=== PATIENT | female | born 1955 | race Caucasian/White ===

== ENCOUNTER 2016-06-19 18:40 | Inpatient (IN) | payer BC ==
[2016-06-19] MEDS ORDERED: NS 0.9% 1000 ML* 1,000 ML IV ONE (22:15)
[2016-06-19] MEDS ORDERED: Ondansetron INJ* 2 MG/ML VIAL IV ONE (22:15)
[2016-06-19] MEDS ORDERED: Morphine INJ* 4 MG/ML 1 ML CARPUJECT IV ONE ×2 (22:15→23:32)
--- NOTE | 2016-06-19 22:35 | ED ---
Nica Weston Erika, scribed for Deni Pérez MD on 06/19/16 at 2220 . Abdominal Pain/Female - HPI Summary HPI Summary: Patient is a 60-year-old female presenting to the ED with a CC of diffuse abdominal pain starting around 12:00 today. Pt reports that she was asymptomatic this morning. Around noon, she was at work when she developed right -sided abdominal pain. She took pain medication that she takes for her chronic back pain and 2 Prilosec, with relief until 16:00 today. Since 16:00, pain has been constant. Pain is now more diffuse in the abdomen. Associated symptoms include lightheadedness, nausea, and dysuria. She denies vomiting and diarrhea. Pt states she has not had similar pain in the past. 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 Negative: Vomiting, Diarrhea Allergies/Adverse Reactions: Allergies Allergy/AdvReac Type Severity Reaction Status Date / Time Bee Venom Allergy Unknown Verified 03/19/16 10:55 Reaction Details Ibuprofen Allergy Nausea And Verified 03/19/16 10:55 Vomiting Levofloxacin [From Levaquin] Allergy Hives Verified 06/19/16 19:37 Penicillins [PCN] Allergy Hives Verified 03/19/16 10:55 PMH/Surg Hx/FS Hx/Imm Hx Musculoskeletal History: Reports: Hx Back Problems - Chronic back pain, stenosis Neurological History: Reports: Other Neuro Impairments/Disorders - PAIN CLINIC PT Psychiatric History: Reports: Hx Anxiety Infectious Disease History: No Infectious Disease History: Denies: Traveled Outside the [place] in Last 30 Days - Family History Known Family History: Positive: Cardiac Disease, Hypertension Negative: Diabetes - Social History Occupation: Employed Full-time Lives: With Family Alcohol Use: Occasionally Hx Substance Use: No Substance Use Type: Reports: None Hx Tobacco Use: Yes Smoking Status (MU): Light Every Day Tobacco Smoker Type: Cigarettes Amount Used/How Often: 7-8 cigarettes per day Have You Smoked in the Last Year: Yes Review of Systems Positive: Abdominal Pain, Nausea. Negative: Vomiting, Diarrhea Positive: dysuria Musculoskeletal: Other - Chronic back pain Neurological: Other - Lightheadedness All Other Systems Reviewed And Are Negative: Yes Physical Exam Triage Information Reviewed: Yes Vital Signs On Initial Exam: Initial Vitals Temp Pulse Resp BP Pulse Ox 100.2 F 85 20 114/64 96 06/19/16 19:35 06/19/16 19:35 06/19/16 19:35 06/19/16 19:35 06/19/16 19:35 Vital Signs Reviewed: Yes Appearance: Positive: Well-Appearing, Pain Distress - moderate discomfort Skin: Positive: Warm Head/Face: Positive: Normal Head/Face Inspection Eyes: Positive: EOMI, KAROL ENT: Positive: Hearing grossly normal Neck: Positive: Supple Respiratory/Lung Sounds: Positive: Clear to Auscultation, Breath Sounds Present Cardiovascular: Positive: Normal Abdomen Description: Positive: Soft, Other: - moderate diffuse abd tenderness. Negative: Distended, Guarding Bowel Sounds: Positive: Present Musculoskeletal: Positive: Strength/ROM Intact Neurological: Positive: Sensory/Motor Intact, Alert, Oriented to Person Place, Time, Normal Gait Psychiatric: Positive: Normal Diagnostics - Vital Signs Vital Signs Temp Pulse Resp BP Pulse Ox 06/19/16 19:35 100.2 F 85 20 114/64 96 - Laboratory Result Diagrams: 06/19/16 22:45 06/19/16 22:45 Lab Statement: Any lab studies that have been ordered have been reviewed, and results considered in the medical decision making process. - CT CT A/P W/ CT Interpretation: Positive (See Comments) - No inflammatory process identified in the abdomen or pelvis. No abdominal mass, adenopathy, or collection seen. 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 Blood work reveals WBC of 23.4. CT A/P shows Spigelian hernia on the right containing a nonobstructed segment of the proximal ascending colon. Care discussed with Dr. Bella, who admits pt for further work up and management. - Diagnoses Provider Diagnoses: Abdominal pain - Provider Notifications Discussed Care Of Patient With: Dr. Bella (hospitalist) at 01:47 - agrees to admit - Critical Care Time Critical Care Time: 30-74 min Discharge - Discharge Plan Condition: Stable Disposition: ADMITTED TO [facility] documentation as recorded by the Nica sutton Erika accurately reflects the service I personally performed and the decisions made by me, Deni Pérez MD.
[2016-06-19 23:04] LABS: Hematocrit 45 % (35-47); Hemoglobin 14.5 g/dl (12.0-16.0); Mean Corpuscular HGB Conc 32 g/dl (31-36); Mean Corpuscular Hemoglobin 29 pg (27-31); Mean Corpuscular Volume 88 fL (80-97); Mean Platelet Volume 8 um3 (7.4-10.4); Red Blood Count 5.06 10^6/ul (4.0-5.4); Red Cell Distribution Width 14 % (10.5-15); White Blood Count 23.4 10^3/ul (3.5-10.8)
[2016-06-19 23:10] LABS: Comments Flag Yes
[2016-06-19 23:14] LABS: Urine Bacteria Absent (Absent); Urine Bilirubin Negative (Negative); Urine Glucose Negative (Negative); Urine Nitrite Negative (Negative)
[2016-06-19 23:20] LABS: Albumin 4.1 g/dL (3.2-5.2); BUN/Creatinine Ratio 15.2 (8-20); C Reactive Protein 37.13 mg/L (< 5.00); Calcium 9.6 mg/dL (8.6-10.3); EGFR African American 74.1 (>60); EGFR Non-African American 57.6 (>60); Globulin 2.8 g/dL (2-4); Magnesium 1.7 mg/dL (1.9-2.7); Potassium 3.9 mmol/L (3.5-5.0); Total Bilirubin 0.7 mg/dL (0.2-1.0); Total Protein 6.9 g/dL (6.4-8.9)
[2016-06-20] MEDS ORDERED: Iodixanol* (CONTRAST) 320 MG/ML 100 ML SDV IV ONE (00:07)
[2016-06-20] MEDS ORDERED: HYDROmorphone INJ* 1 MG/ML CARPUJECT SYRINGE IV SLOW PU ONE ×2 (01:35→17:22)
[2016-06-20] MEDS ORDERED: Al Hydrox/Mg Hydrox/Simet LIQ* 30 ML UDC PO PRN (02:09)
[2016-06-20] MEDS ORDERED: Senna TAB PO PRN (02:09)
[2016-06-20] MEDS ORDERED: ALPRAZolam TAB* 0.5 MG PO PRN (02:13)
[2016-06-20] MEDS: Morphine INJ* 2 MG/ML 1 ML CARPUJECT IV PRN ×2 (04:00→08:45)
[2016-06-20] MEDS: NS 0.9% 1000 ML* 1,000 ML IV SCH ×2 (04:18→14:46)
[2016-06-20] MEDS: Heparin VIAL(*) 5000 UNITS/ML VIAL (FIVE THOUSAND) SUBCUT SCH ×2 (06:01→14:25)
[2016-06-20 06:26] LABS: Hematocrit 39 % (35-47); Hemoglobin 12.9 g/dl (12.0-16.0); Mean Corpuscular HGB Conc 33 g/dl (31-36); Mean Corpuscular Hemoglobin 29 pg (27-31); Mean Corpuscular Volume 88 fL (80-97); Mean Platelet Volume 9 um3 (7.4-10.4); Red Blood Count 4.46 10^6/ul (4.0-5.4); Red Cell Distribution Width 14 % (10.5-15); White Blood Count 23.8 10^3/ul (3.5-10.8)
[2016-06-20 06:28] LABS: Add Diff/Slide Review? Slide Review Added; Comments Flag Yes
[2016-06-20] MEDS: oxyCODONE TAB* 5 MG TAB PO PRN ×2 (06:35→17:11)
[2016-06-20 06:39] LABS: BUN/Creatinine Ratio 13.8 (8-20); Calcium 8.4 mg/dL (8.6-10.3); EGFR Non-African American 66.9 (>60); Potassium 4.1 mmol/L (3.5-5.0)
--- NOTE | 2016-06-20 07:50 | RAD ---
CLINICAL HISTORY: Diffuse abdominal pain COMPARISON: None TECHNIQUE: Contrast enhanced CT examination of the abdomen and pelvis from the lung bases through the initial tuberosities. The patient received 100 mL Visipaque 320 intravenously prior to imaging.The patient received oral contrast as well prior to imaging. FINDINGS: VISUALIZED LUNG BASES: The visualized lung bases are grossly clear. There is no pleural effusion. ABDOMEN AND PELVIS: The liver, spleen, pancreas and adrenal glands are grossly normal in appearance. The gallbladder is normal. The kidneys are normal in appearance without focal mass, calcification or signs of hydronephrosis. There is a tiny focus of air in the nondependent portion of the urinary bladder (image 78 on the axial images and 80 on the sagittal images). The oral contrast has progressed as far as the hepatic flexure. The small and large bowel are not distended. The appendix is not discretely visualized. At the base of the cecum there is a small amount of fluid that is contiguous with the adjacent right adnexa and uterus. (Image 46 of 115). There is minimal diverticular disease of the sigmoid colon but the peritoneal fat surrounding the sigmoid colon exhibits slight infiltration. Between the posterior uterus and the sigmoid colon there is a focus of what appears to be free peritoneal gas (axial image 72 and sagittal image 74). Evaluation of the distal colon is limited as the oral contrast has not progressed on the hepatic flexure. There is a right para midline hernia containing a loop of a sending colon just above the base of the cecum. There is no gross retroperitoneal or mesenteric lymphadenopathy. The pelvic viscera is normal in appearance. The abdominal aorta and iliac arteries are normal in course and diameter. Degenerative changes include multilevel loss of intervertebral disc height involving the lower thoracic and lumbar spine as well as nonspecific straightening of the normal lumbar lordosis.There are no sinister bone lesions. IMPRESSION: 1. There is a right of midline spine ganglion hernia containing a small portion of the ascending colon without signs of obstruction or inflammatory change within the herniation. Immediately below at the base of the cecum there is a small amount of free fluid that is contiguous with the right adnexa and right border of the uterus. Also in the same vicinity is the sigmoid colon exhibiting at least one diverticulum, a small focus of free peritoneal gas and pericolonic inflammatory changes. Possible etiologies include mild sigmoid diverticulitis, a gynecologic process (particularly if this woman is receiving hormone replacement therapy) or inflammatory change related to the Spigelian hernia. 2. Also noted and possibly related to the items in #1 is a small focus of gas in the nondependent urinary bladder. Please correlate to any recent instrumentation of the urethra and urinary bladder. In the absence of an iatrogenic cause a fistula with either the colon or vagina could be considered. 3. Additional chronic and degenerative findings as described in body of the report.
--- NOTE | 2016-06-20 07:56 | HP ---
CC: SANGEETA Castellon HISTORY AND PHYSICAL: DATE OF ADMISSION: 06/20/16 TIME OF EVALUATION: 0200 hours. PRIMARY CARE PHYSICIAN: SANGEETA Castellon CHIEF COMPLAINT: Nausea and abdominal pain. HISTORY OF PRESENT ILLNESS: This is a 60-year-old female with a past medical history of chronic pain, who presents to the emergency room after having abdominal pain. The patient states the pain started about 14 hours ago shortly prior to launch yesterday. She did develop mostly right-sided abdominal pain and then it has became more diffuse mainly in the lower region. She has had some nausea she feels secondary to the pain. No vomiting. No diarrhea. Last bowel movement was yesterday morning and was normal. She has had fevers and chills. No sick contacts. No URI symptoms. No rash. She states she has some mild dysuria she feels secondary to the pain. Otherwise remaining review of systems was negative. The patient was seen in the emergency room, had labs, imaging and was referred to the hospitalist service for further evaluation. PAST MEDICAL HISTORY: 1. Back pain. 2. Herniated disk. 3. Spinal stenosis. 4. Anxiety MEDICATIONS: 1. Oxycodone 50 mg 2 to 3 times a day as needed for pain. 2. Baclofen 10 mg p.o. t.i.d. as needed for spasms. 3. Xanax 0.5 mg b.i.d. as need for anxiety. 4. She states she is on multiple supplements. ALLERGIES: BEE VENOM, IBUPROFEN, LEVAQUIN, AND PENICILLIN. FAMILY HISTORY: Reviewed and noncontributory. SOCIAL HISTORY: She lives at home with her , Deni. She occasionally drinks. She smokes a pack per day for the past 30 years. 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 CODE STATUS: Full code. REVIEW OF SYSTEMS: As mentioned in the HPI. PHYSICAL EXAMINATION GENERAL: In no acute distress, resting comfortably with her at the bedside. VITAL SIGNS: T-max 100.2, respiratory rate 16, oxygen saturation is 96% on room air, and blood pressure 114/64. HEENT: Pupils are equal, round, and reactive to light and anicteric. Head normocephalic. Oropharynx: Mucous membranes are moist. No erythema or exudate. NECK: Supple. No lymphadenopathy. No nuchal rigidity. RESPIRATORY: Diminished breath sounds. No wheeze, rhonchi, or rales. CARDIAC: Regular rate and rhythm. No murmurs, rubs, or gallops. ABDOMEN: Hypoactive bowel sounds. Soft, diffusely tender. No rebound or guarding. EXTREMITIES: No clubbing, cyanosis, or edema; +2 DP. NEUROLOGIC: Alert and oriented x3. No focal neurological deficits. DIAGNOSTIC STUDIES/LAB DATA: White count 23.4, hemoglobin 14.5, hematocrit 45 , and platelets 273. Sodium 132, potassium 3.9, chloride 106, bicarbonate 27, BUN 15, creatinine 0.99, glucose 118, and magnesium 1.7. CRP 37. Urinalysis shows +1 blood, and negative nitrite. Radiographic data showing no inflammatory process identified in the abdomen or pelvis. No abdominal mass, adenopathy, or collection seen. Spigelian hernia on the right, continuing a nonobstructive segment of the proximal ascending colon. ASSESSMENT AND PLAN: This is a 60-year-old female with an unremarkable past medical history presented to the emergency room with abdominal pain and nausea. 1. Abdominal pain and nausea. Assessment: The patient with leukocytosis and low- grade temp and her CAT scan is unremarkable. I questioned if this is early gastroenteritis. No other source of infection. Could be a gallbladder. However, CAT scan does show a normal gallbladder, but may not be easily identified on CAT scan versus getting an ultrasound. No evidence of kidney stones or urinary tract infection on her exam. Plan: We are going to hold off on starting her on antibiotics. At this time, as there is no focal infection, as I suspect this is a viral gastroenteritis. We will get an ultrasound of her gallbladder and repeat her labs in the morning. Place her on a clear liquid diet with IV fluids and advance as tolerated. 2. Chronic medical problems: Chronic back pain and anxiety: We will resume her p.o. medications as prescribed. 3. FEN: As mentioned clear liquid with IV fluids. 4. DVT prophylaxis: Moderate risk. Place her on heparin subcu t.i.d. 5. Code status: Full code. TIME SPENT: Greater than 30 minutes was spent doing the history and physical, more than half the time was spent in direct patient contact. [id number]/[facility] #: [id number] JUSTINA
--- NOTE | 2016-06-20 08:30 | RAD ---
Indication: Right upper quadrant pain. Real-time sonography of the right upper quadrant was performed. The liver is normal in size measuring up to 18 cm in length. There are prominent periportal echoes noted. Correlation with the laboratory values is suggested. I cannot totally exclude hepatitis. The gallbladder demonstrates no gallstones, pericholecystic fluid or wall thickening. The common duct measures 4 mm. Right kidney measures 10.1 x 4.3 x 5.3 cm with no hydronephrosis. The pancreas demonstrates no mass or pancreatic ductal dilatation. Aorta and inferior vena cava are unremarkable. IMPRESSION: Prominent periportal echoes in the liver. Correlation with laboratory values is suggested to exclude acute hepatitis. No evidence of cholelithiasis or biliary duct dilatation is noted.
[2016-06-20] MEDS: Morphine INJ* 4 MG/ML 1 ML CARPUJECT IV PRN ×2 (12:07→15:07)
--- NOTE | 2016-06-20 13:26 | PN ---
Subjective Date of Service: 06/20/16 Interval History: Patient seen and examined at bedside. She is laying flat in bed and states that her morphine "only lasts 2 hours." She is upset because she is still having pain. Denies fever/chills overnight, CP, SOB. Patient reports nausea that occurs with pain but denies emesis and diarrhea. She is frustrated that she does not feel better; pain started yesterday. Family History: Unchanged from Admission Social History: Unchanged from Admission Past Medical History: Unchanged from Admission Objective Active Medications: Acetaminophen (Tylenol Tab*) 650 mg PO Q4H PRN PRN Reason: FEVER/PAIN Al Hydrox/Mg Hydrox/Simethicone (Maalox Plus*) 30 ml PO Q6H PRN PRN Reason: INDIGESTION Alprazolam (Xanax Tab*) 0.5 mg PO TID GENA Baclofen (Lioresal Tab*) 10 mg PO TID PRN PRN Reason: SPASMS Docusate Sodium (Colace Cap*) 100 mg PO BID PRN PRN Reason: CONSTIPATION Heparin Sodium (Porcine) (Heparin Vial(*)) 5,000 units SUBCUT Q8HR [facility] Last Admin: 06/20/16 06:01 Dose: 5,000 units Sodium Chloride (Ns 0.9% 1000 Ml*) 1,000 mls @ 125 mls/hr IV PER RATE [facility] Last Admin: 06/20/16 04:18 Dose: 125 mls/hr Morphine Sulfate (Morphine Inj (Syringe)*) 4 mg IV Q3H PRN PRN Reason: PAIN Ondansetron HCl (Zofran Inj*) 4 mg IV Q4H PRN PRN Reason: NAUSEA/VOMITING Oxycodone HCl (Roxycodone Tab*) 15 mg PO Q8H PRN PRN Reason: PAIN Last Admin: 06/20/16 06:35 Dose: 15 mg Senna (Senokot Tab*) 1 tab PO BID PRN PRN Reason: CONSTIPATION Vital Signs 06/20/16 06/20/16 06/20/16 03:40 03:44 03:46 Temperature 98.8 F 99.5 F 98.8 F Pulse Rate 84 80 84 Respiratory 18 16 18 Rate Blood Pressure 113/55 98/54 113/55 (mmHg) O2 Sat by Pulse 94 94 Oximetry 01/10/0106/20/16 06/20/16 04:00 05:00 05:03 Temperature Pulse Rate Respiratory 18 17 18 Rate Blood Pressure (mmHg) O2 Sat by Pulse Oximetry 06/20/16 06/20/16 06/20/16 06:35 08:35 08:45 Temperature Pulse Rate Respiratory 18 16 16 Rate Blood Pressure (mmHg) O2 Sat by Pulse Oximetry 06/20/16 09:45 Temperature Pulse Rate Respiratory 16 Rate Blood Pressure (mmHg) O2 Sat by Pulse Oximetry Oxygen Devices in Use Now: None Appearance: Female patient, lying in bed, in NAD Eyes: PERRLA Ears/Nose/Mouth/Throat: Mucous Membranes Moist Neck: NL Appearance and Movements; NL JVP Respiratory: Symmetrical Chest Expansion and Respiratory Effort, Clear to Auscultation - diminished Cardiovascular: NL Sounds; No Murmurs; No JVD, RRR Abdominal: NL Sounds; No Tenderness; No Distention - BS x 4, pain with palpation to RUQ, mid abdomen, RLQ Extremities: No Clubbing, Cyanosis Skin: No Rash or Ulcers Neurological: Alert and Oriented x 3 Lines/Tubes/Other Access: Clean, Dry and Intact Peripheral IV Nutrition: Taking PO's - clears Result Diagrams: 06/20/16 06:08 06/20/16 06:08 Assess/Plan/Problems-Billing Assessment: Ms. Aguero is a 60 yo female with a PMH of chronic back pain who presented to the ED on 06/20/16 with abdominal pain and nausea. - Patient Problems (1) Abdominal pain Code(s): R10.9 - UNSPECIFIED ABDOMINAL PAIN Comment: With leukocytosis. Patient is afebrile. Pain accompanied by nausea. Etiology possible gastroenteritis or colitis, continue IVF and pain management. Consider antibiotic therapy if pt becomes febrile or pain worsens/persists. Continue close monitoring. CT not able to idenitfy inflammatory process in abdomen or pelvis, no masses/ adenopathy/collection seen, Spigelian hernia on the right - contining a nonobstructive segment of the proximal ascending colon. (2) Chronic back pain Code(s): M54.9 - DORSALGIA, UNSPECIFIED; G89.29 - OTHER CHRONIC PAIN Comment: Continue home oxycodone PRN at reduced frequency, hold for sedation. (3) Anxiety Code(s): F41.9 - ANXIETY DISORDER, UNSPECIFIED Comment: Continue PRN alprazolam and supportive care. (4) DVT prophylaxis Comment: SQ heparin Status and Disposition: OBV admit.
[2016-06-20] MEDS ORDERED: ALPRAZolam TAB* 0.5 MG PO SCH (14:00)
[2016-06-20] MEDS ORDERED: Calcium Carbonate CHEW TAB* 500 MG (TUMS) PO PRN (17:48)
[2016-06-20] MEDS ORDERED: HYDROmorphone INJ* 1 MG/ML CARPUJECT SYRINGE IV SLOW PU PRN (17:50)
[2016-06-20] MEDS ORDERED: Pantoprazole IV* 40 MG IV ONE (17:50)
[2016-06-20] MEDS: Simethicone TAB* 80 MG TAB.CHEW PO PRN ×2 (18:09→23:35)
[2016-06-20] MEDS ORDERED: traZODone TAB* 100 MG PO PRN ×2 (18:40→19:04)
--- NOTE | 2016-06-20 18:44 | PN ---
Hospitalist Progress Note Patient continues to report pain and is now reporting gas and abdominal pressure , as if she needs to have a bowel movement. She states it "hurts too much" to try to walk. Patient encouraged to sit on commode or toilet to help promote bowel movement. She denies chronic constipation. She is very agitated about her pain and states that she cannot get comfortable. Morphine switched to hydromorphone. Patient also ordered simethicone. Pelvic US ordered, as patient continues to c/o right lower quadrant pain that "feels like it's in my ovary." No fever noted. Continue to closely monitor.
[2016-06-20] MEDS ORDERED: oxyCODONE TAB* 5 MG TAB PO PRN (19:04)
[2016-06-20] MEDS: HYDROmorphone INJ* 1 MG/ML CARPUJECT SYRINGE IV SLOW PU PRN (20:45)
--- NOTE | 2016-06-20 23:17 | RAD ---
Indication: RIGHT adnexal region pain. Comparison: CT of the same date. Technique: Transabdominal pelvic ultrasound. Report: Unremarkable 8.3 x 2.2 x 4.0 cm anteverted uterus. Neither the RIGHT or LEFT ovary could be visualized with bowel gas limiting assessment. No free fluid evident sonographically however a small volume of free pelvic fluid is evident on CT of the same date. No visualized extra ovarian adnexal region lesions. IMPRESSION: Limited transabdominal pelvic ultrasound. Neither ovary could be visualized with bowel gas limiting assessment. Small volume of free pelvic fluid documented on CT.
[2016-06-20] MEDS: Acetaminophen TAB* 325 MG PO PRN (23:35)
[2016-06-21] MEDS ORDERED: NS 0.9% 1000 ML* 1,000 ML IV ONE (00:26)
[2016-06-21] MEDS: Heparin VIAL(*) 5000 UNITS/ML VIAL (FIVE THOUSAND) SUBCUT SCH ×4 (00:31→21:42)
[2016-06-21] MEDS: HYDROmorphone INJ* 1 MG/ML CARPUJECT SYRINGE IV SLOW PU PRN ×3 (01:02→09:56)
[2016-06-21 01:07] LABS: Urine Bacteria Absent (Absent); Urine Bilirubin Negative (Negative); Urine Glucose Negative (Negative); Urine Nitrite Negative (Negative)
[2016-06-21] MEDS: NS 0.9% 1000 ML* 1,000 ML IV SCH ×3 (01:49→20:50)
[2016-06-21] MEDS: Simethicone TAB* 80 MG TAB.CHEW PO PRN (06:11)
[2016-06-21 06:43] LABS: Hematocrit 36 % (35-47); Hemoglobin 11.7 g/dl (12.0-16.0); Mean Corpuscular HGB Conc 33 g/dl (31-36); Mean Corpuscular Hemoglobin 29 pg (27-31); Mean Corpuscular Volume 88 fL (80-97); Mean Platelet Volume 9 um3 (7.4-10.4); Red Blood Count 4.09 10^6/ul (4.0-5.4); Red Cell Distribution Width 14 % (10.5-15); White Blood Count 21.2 10^3/ul (3.5-10.8)
[2016-06-21 07:02] LABS: BUN/Creatinine Ratio 8.8 (8-20); Calcium 8.1 mg/dL (8.6-10.3); EGFR African American 81.7 (>60); EGFR Non-African American 63.5 (>60); Potassium 3.6 mmol/L (3.5-5.0)
[2016-06-21] MEDS: Ondansetron INJ* 2 MG/ML VIAL IV PRN (09:56)
[2016-06-21] MEDS: cefTRIAXone VIAL(*) 1,000 MG in NS 0.9% 50 ML* 50 ML IVPB SCH (10:07)
[2016-06-21] MEDS ORDERED: Morphine INJ* 4 MG/ML 1 ML CARPUJECT IV PRN (10:22)
[2016-06-21] MEDS: ALPRAZolam TAB* 0.5 MG PO PRN (10:26)
[2016-06-21] MEDS: metroNIDAZOLE IV 500 MG/100ML* 500 MG/100 ML BAG IVPB SCH ×2 (10:44→18:33)
--- NOTE | 2016-06-21 11:04 | PN ---
Subjective Date of Service: 06/21/16 Interval History: Patient seen and examined at bedside. Ms. Aguero is very agitated and states, "I'm in terrible pain and no one is doing anything." She is upset that no cause has yet been found for her pain and states that she has trouble marking time in the hospital and keeping up with requesting her pain medication. She declined a LOG ROPER and wants nursing to bring her pain medication around the clock. I discussed with the patient making a plan with nursing to write times on the board so she could keep better track and to report to nursing or myself when she is having pain and if it is unrelieved by the current pain medication regimen. She agreed to this. She has not gotten up to walk around as we previously discussed because "it hurts too much." She reports having lots of gas and is passing a little bit. She is drinking a lot of alin noemi; I advised her against the carbonation and straw use in the presence of c/o gas. She denies CP, SOB, vomiting, diarrhea, melena. She reports dysuria, nausea, and fever/sweats. Nursing reports patient and her have been very aggressive towards staff in regards to care and medication. Family History: Unchanged from Admission Social History: Unchanged from Admission Past Medical History: Unchanged from Admission Objective Active Medications: Acetaminophen (Tylenol Tab*) 650 mg PO Q4H PRN PRN Reason: FEVER/PAIN Last Admin: 06/20/16 23:35 Dose: 650 mg Al Hydrox/Mg Hydrox/Simethicone (Maalox Plus*) 30 ml PO Q6H PRN PRN Reason: INDIGESTION Alprazolam (Xanax Tab*) 0.5 mg PO TID PRN PRN Reason: ANXIETY Last Admin: 06/21/16 10:26 Dose: 0.5 mg Baclofen (Lioresal Tab*) 10 mg PO TID PRN PRN Reason: SPASMS Calcium Carbonate (Tums*) 500 mg PO Q4H PRN PRN Reason: INDIGESTION Docusate Sodium (Colace Cap*) 100 mg PO BID PRN PRN Reason: CONSTIPATION Heparin Sodium (Porcine) (Heparin Vial(*)) 5,000 units SUBCUT Q8HR [facility] Last Admin: 06/21/16 06:04 Dose: Not Given Sodium Chloride (Ns 0.9% 1000 Ml*) 1,000 mls @ 125 mls/hr IV PER RATE [facility] Last Admin: 06/21/16 10:08 Dose: 125 mls/hr Ceftriaxone Sodium 1,000 mg/ (Sodium Chloride) 50 mls @ 200 mls/hr IVPB Q24H [facility] Last Admin: 06/21/16 10:07 Dose: 200 mls/hr Metronidazole/Sodium Chloride (Flagyl 500 Mg Ivpb*) 500 mg in 100 mls @ 100 mls /hr IVPB Q8H [facility] Last Admin: 06/21/16 10:44 Dose: 100 mls/hr Morphine Sulfate (Morphine Inj (Syringe)*) 4 mg IV Q3H PRN PRN Reason: PAIN Last Admin: 06/21/16 10:40 Dose: 4 mg Ondansetron HCl (Zofran Inj*) 4 mg IV Q4H PRN PRN Reason: NAUSEA/VOMITING Last Admin: 06/21/16 09:56 Dose: 4 mg Oxycodone HCl (Roxycodone Tab*) 15 mg PO Q8H PRN PRN Reason: PAIN Last Admin: 06/21/16 06:11 Dose: 15 mg Senna (Senokot Tab*) 1 tab PO BID PRN PRN Reason: CONSTIPATION Simethicone (Mylicon*) 80 mg PO Q6H PRN PRN Reason: DYSPEPSIA Last Admin: 06/21/16 06:11 Dose: 80 mg Trazodone HCl (Desyrel Tab*) 100 mg PO BEDTIME PRN PRN Reason: INSOMNIA Vital Signs 06/20/16 06/20/16 06/20/16 12:07 13:07 14:45 Temperature Pulse Rate Respiratory 16 16 16 Rate Blood Pressure (mmHg) O2 Sat by Pulse Oximetry 06/20/16 06/20/16 06/20/16 14:51 15:07 16:07 Temperature 98.0 F Pulse Rate 84 Respiratory 16 16 16 Rate Blood Pressure 106/60 (mmHg) O2 Sat by Pulse 95 Oximetry 06/20/16 06/20/16 06/20/16 16:45 17:11 17:44 Temperature Pulse Rate Respiratory 16 22 19 Rate Blood Pressure (mmHg) O2 Sat by Pulse Oximetry 06/20/16 06/20/16 06/20/16 19:11 19:26 20:00 Temperature 100.9 F Pulse Rate 97 Respiratory 15 16 15 Rate Blood Pressure 103/41 (mmHg) O2 Sat by Pulse 90 Oximetry 06/20/16 06/20/16 06/20/16 20:45 21:45 23:25 Temperature 103.1 F Pulse Rate 103 Respiratory 16 16 20 Rate Blood Pressure 129/54 (mmHg) O2 Sat by Pulse 94 Oximetry 06/21/16 06/21/16 06/21/16 01:02 01:30 02:02 Temperature 102.2 F Pulse Rate Respiratory 18 17 Rate Blood Pressure (mmHg) O2 Sat by Pulse Oximetry 06/21/16 06/21/16 06/21/16 03:54 04:28 05:28 Temperature 98.6 F Pulse Rate 95 Respiratory 16 18 17 Rate Blood Pressure 126/52 (mmHg) O2 Sat by Pulse 100 Oximetry 06/21/16 06/21/16 06/21/16 06:11 07:23 08:11 Temperature 101.0 F Pulse Rate 95 Respiratory 17 16 16 Rate Blood Pressure 103/48 (mmHg) O2 Sat by Pulse 93 Oximetry 06/21/16 06/21/16 06/21/16 09:56 10:26 10:28 Temperature 99.3 F Pulse Rate Respiratory 22 28 28 Rate Blood Pressure (mmHg) O2 Sat by Pulse Oximetry 06/21/16 06/21/16 10:32 10:40 Temperature Pulse Rate 120 Respiratory 25 Rate Blood Pressure 116/44 (mmHg) O2 Sat by Pulse 92 Oximetry Oxygen Devices in Use Now: None Appearance: Female patient, lying in bed, diaphoretic, appears uncomfortable. Eyes: PERRLA Ears/Nose/Mouth/Throat: Clear Oropharnyx, Mucous Membranes Moist Neck: NL Appearance and Movements; NL JVP Respiratory: Symmetrical Chest Expansion and Respiratory Effort, Clear to Auscultation Cardiovascular: NL Sounds; No Murmurs; No JVD, RRR Abdominal: - - diffuse abdominal tenderness, more prominent in RMQ/RLQ Extremities: No Edema Skin: No Rash or Ulcers Neurological: Alert and Oriented x 3 Lines/Tubes/Other Access: Clean, Dry and Intact Peripheral IV Result Diagrams: 06/21/16 06:34 06/21/16 06:34 Assess/Plan/Problems-Billing Assessment: Ms. Aguero is a 60 yo female with a PMH of chronic back pain who presented to the ED on 1/4/17 with abdominal pain and nausea. - Patient Problems (1) Abdominal pain Code(s): R10.9 - UNSPECIFIED ABDOMINAL PAIN Comment: Patient febrile overnight and has persistent leukocytosis. Started on metronidazole and ceftriaxone, given her allergies to fluoroquinolones and penicillins. Pain accompanied by nausea. Etiology possible gastroenteritis or colitis, continue IVF and pain management. Patient has declined a LOG ROPER at this time and dislikes hydromorphone. Continue morphine and coordinate pain management regimen with nursing. Pelvic U/S and KUB negative for acute findings. GI consult pending. CT not able to idenitfy inflammatory process in abdomen or pelvis, no masses/ adenopathy/collection seen, Spigelian hernia on the right - continuing a nonobstructive segment of the proximal ascending colon. (2) Chronic back pain Code(s): M54.9 - DORSALGIA, UNSPECIFIED; G89.29 - OTHER CHRONIC PAIN Comment: Continue home oxycodone PRN at reduced frequency, hold for sedation. (3) Anxiety Code(s): F41.9 - ANXIETY DISORDER, UNSPECIFIED Comment: Continue PRN alprazolam and supportive care. (4) DVT prophylaxis Comment: SQ heparin Status and Disposition: OBV admit to inpatient.
[2016-06-21] MEDS: Morphine INJ* 4 MG/ML 1 ML CARPUJECT IV PRN ×6 (12:47→22:51)
--- NOTE | 2016-06-21 13:45 | RAD ---
INDICATION: Abdominal pain. COMPARISON: Comparison is made with a prior CT of the abdomen and pelvis from June 20, 2016. TECHNIQUE: Frontal supine films of the abdomen were obtained. FINDINGS: The small bowel and colon appear nondistended. Contrast is seen within the colon from the prior CT study. No significant abnormal calcifications are seen. IMPRESSION: NO EVIDENCE FOR OBSTRUCTION.
[2016-06-21 14:18] LABS: C Reactive Protein 210.53 mg/L (< 5.00)
--- NOTE | 2016-06-21 21:52 | CONS ---
CONSULTATION REPORT: DATE OF CONSULTATION: 06/21/16 REQUESTING PHYSICIAN: Dr. Bella. INDICATION: Generalized abdominal pain. NARRATIVE: Mrs. Aguero is a 60-year-old female who was admitted for abdominal pain. She states it began on Saturday or Saturday out of the blue, began on the right side of her abdomen and moved to all over. It is colicky, coming in waves. She did start to vomit today. She has had fevers and chills. She was admitted for suspected gastroenteritis; however, her symptoms have continued to worsen. Her white count is elevated and she has developed a fever. She was started on antibiotics just a few hours ago. She denies any stool or gas in her urine. Her urine has been dark and she does have dysuria. PAST MEDICAL HISTORY: Significant for spinal stenosis, anxiety, chronic back pain. MEDICATIONS: Include: 1. Oxycodone. 2. Baclofen. 3. Xanax. ALLERGIES: IBUPROFEN, LEVAQUIN, and PENICILLIN. FAMILY HISTORY: No GI malignancies in the family. SOCIAL HISTORY: She does smoke tobacco. I counseled her against this. Occasional alcohol. REVIEW OF SYSTEMS: 12 systems were reviewed, other than that mentioned in the HPI were unremarkable. PHYSICAL EXAMINATION: Vital signs: T-max is 101, blood pressure is 103/48, pulse is 95. General: Mildly ill-appearing female, in no apparent distress. Alert and oriented, pleasant and fluent. HEENT: Mucous membranes are dry. Heart: Regular rate and rhythm. Tachy. Lungs: Clear to auscultation. Abdomen: Positive bowel sounds, but hypoactive. Morbidly obese. No rebound. No guarding. Diffusely tender. Mildly distended. Skin: Warm and dry. DIAGNOSTIC STUDIES/LAB DATA: BUN 8, creatinine 0.9, CRP is 210. White count is 21.2, hemoglobin is 11.7, platelets 214. She had an abdominal x-ray from today that was normal. Gallbladder ultrasound from yesterday that was normal and 2 days ago, CT that shows a spigelian hernia with colon in the hernia, one diverticuloma on the left side and possibility of gas within the bladder. ASSESSMENT AND PLAN: This is a 60-year-old female with abdominal pain, elevated white count, fever, and CRP. I do wonder if she could have diverticulitis. She was just started on antibiotics today. I think that is a very good idea. There is also a question of whether or not there could be a fistula between her bladder and colon. She denies any symptoms suggestive of that. I agree with the antibiotics and the pain control. At this point, we will continue to follow along very closely. CC: Dr. Bella; Binh Mary, KARLO* [id number]/[facility] #: [id number] MTDD
[2016-06-21] MEDS ORDERED: Vancomycin(*) 1,250 MG in NS 0.9% 250 ML* 250 ML IVPB ONE (22:00)
[2016-06-21] MEDS: Acetaminophen TAB* 325 MG PO PRN (22:45)
[2016-06-21] MEDS: Docusate CAP* 100 MG PO PRN (23:26)
[2016-06-22] MEDS: Morphine INJ* 4 MG/ML 1 ML CARPUJECT IV PRN ×10 (01:27→22:34)
[2016-06-22] MEDS: metroNIDAZOLE IV 500 MG/100ML* 500 MG/100 ML BAG IVPB SCH ×3 (02:48→18:39)
[2016-06-22] MEDS: Simethicone TAB* 80 MG TAB.CHEW PO PRN (02:53)
[2016-06-22] MEDS: ALPRAZolam TAB* 0.5 MG PO PRN ×2 (02:53→19:50)
[2016-06-22] MEDS: Heparin VIAL(*) 5000 UNITS/ML VIAL (FIVE THOUSAND) SUBCUT SCH ×2 (06:27→14:04)
[2016-06-22 06:59] LABS: Hematocrit 38 % (35-47); Hemoglobin 12.1 g/dl (12.0-16.0); Mean Corpuscular HGB Conc 32 g/dl (31-36); Mean Corpuscular Hemoglobin 29 pg (27-31); Mean Corpuscular Volume 89 fL (80-97); Mean Platelet Volume 9 um3 (7.4-10.4); Red Blood Count 4.19 10^6/ul (4.0-5.4); Red Cell Distribution Width 15 % (10.5-15); White Blood Count 17.2 10^3/ul (3.5-10.8)
[2016-06-22 07:11] LABS: Add Diff/Slide Review? Slide Review Added; Comments Flag Yes
[2016-06-22] MEDS: NS 0.9% 1000 ML* 1,000 ML IV SCH (07:57)
[2016-06-22] MEDS: cefTRIAXone VIAL(*) 1,000 MG in NS 0.9% 50 ML* 50 ML IVPB SCH (10:18)
--- NOTE | 2016-06-22 12:27 | PN ---
Subjective Date of Service: 06/22/16 Interval History: Patient seen and examined at bedside. She is more calm today. She reports still having pain but admits that she was able to go 5 hours overnight without needing medication. She reports urinating but denies any further bowel movements. She is passing flatus. She denies CP, SOB. Abd pain is still present. She wants to try jello or a popsicle. She has started ambulating with nursing staff. Family History: Unchanged from Admission Social History: Unchanged from Admission Past Medical History: Unchanged from Admission Objective Active Medications: Acetaminophen (Tylenol Tab*) 650 mg PO Q4H PRN PRN Reason: FEVER/PAIN Last Admin: 06/21/16 22:45 Dose: 650 mg Al Hydrox/Mg Hydrox/Simethicone (Maalox Plus*) 30 ml PO Q6H PRN PRN Reason: INDIGESTION Alprazolam (Xanax Tab*) 0.5 mg PO TID PRN PRN Reason: ANXIETY Last Admin: 06/22/16 02:53 Dose: 0.5 mg Baclofen (Lioresal Tab*) 10 mg PO TID PRN PRN Reason: SPASMS Calcium Carbonate (Tums*) 500 mg PO Q4H PRN PRN Reason: INDIGESTION Docusate Sodium (Colace Cap*) 100 mg PO BID PRN PRN Reason: CONSTIPATION Last Admin: 06/21/16 23:26 Dose: 100 mg Heparin Sodium (Porcine) (Heparin Vial(*)) 5,000 units SUBCUT Q8HR [facility] Last Admin: 06/22/16 06:27 Dose: 5,000 units Sodium Chloride (Ns 0.9% 1000 Ml*) 1,000 mls @ 125 mls/hr IV PER RATE [facility] Last Admin: 06/22/16 07:57 Dose: 125 mls/hr Ceftriaxone Sodium 1,000 mg/ (Sodium Chloride) 50 mls @ 200 mls/hr IVPB Q24H [facility] Last Admin: 06/22/16 10:18 Dose: 200 mls/hr Metronidazole/Sodium Chloride (Flagyl 500 Mg Ivpb*) 500 mg in 100 mls @ 100 mls /hr IVPB Q8H [facility] Last Admin: 06/22/16 11:42 Dose: 100 mls/hr Morphine Sulfate (Morphine Inj (Syringe)*) 4 mg IV Q2H PRN PRN Reason: PAIN Last Admin: 06/22/16 12:09 Dose: 4 mg Ondansetron HCl (Zofran Inj*) 4 mg IV Q4H PRN PRN Reason: NAUSEA/VOMITING Last Admin: 06/21/16 09:56 Dose: 4 mg Oxycodone HCl (Roxycodone Tab*) 15 mg PO Q8H PRN PRN Reason: PAIN Last Admin: 06/21/16 06:11 Dose: 15 mg Senna (Senokot Tab*) 1 tab PO BID PRN PRN Reason: CONSTIPATION Simethicone (Mylicon*) 80 mg PO Q6H PRN PRN Reason: DYSPEPSIA Last Admin: 06/22/16 02:53 Dose: 80 mg Trazodone HCl (Desyrel Tab*) 100 mg PO BEDTIME PRN PRN Reason: INSOMNIA Vital Signs 06/21/16 06/21/16 06/21/16 18:33 19:33 20:00 Temperature Pulse Rate Respiratory 18 18 18 Rate Blood Pressure (mmHg) O2 Sat by Pulse Oximetry 06/21/16 06/21/16 06/21/16 20:28 21:28 21:30 Temperature 103 F Pulse Rate Respiratory 18 17 Rate Blood Pressure (mmHg) O2 Sat by Pulse Oximetry 06/21/16 06/21/16 06/21/16 22:51 22:55 23:51 Temperature 102.7 F Pulse Rate Respiratory 18 17 Rate Blood Pressure (mmHg) O2 Sat by Pulse Oximetry 06/21/16 06/22/16 06/22/16 23:55 00:06 01:27 Temperature 99.8 F Pulse Rate 96 97 Respiratory 16 17 Rate Blood Pressure 83/49 100/57 (mmHg) O2 Sat by Pulse 92 Oximetry 06/22/16 06/22/16 06/22/16 02:27 02:53 04:53 Temperature Pulse Rate Respiratory 16 16 17 Rate Blood Pressure (mmHg) O2 Sat by Pulse Oximetry 06/22/16 06/22/16 06/22/16 06:08 07:08 07:57 Temperature Pulse Rate Respiratory 16 20 20 Rate Blood Pressure (mmHg) O2 Sat by Pulse Oximetry 06/22/16 06/22/16 06/22/16 08:00 08:03 08:57 Temperature 98.2 F Pulse Rate 93 Respiratory 17 17 16 Rate Blood Pressure 112/66 (mmHg) O2 Sat by Pulse 98 Oximetry 06/22/16 06/22/16 06/22/16 10:22 11:22 12:09 Temperature Pulse Rate Respiratory 16 16 20 Rate Blood Pressure (mmHg) O2 Sat by Pulse Oximetry Oxygen Devices in Use Now: None Appearance: Female patient, lying in bed, in NAD Eyes: PERRLA Ears/Nose/Mouth/Throat: Clear Oropharnyx, Mucous Membranes Moist Neck: NL Appearance and Movements; NL JVP Respiratory: Symmetrical Chest Expansion and Respiratory Effort, Clear to Auscultation Cardiovascular: RRR Abdominal: - - BS x 4, diffuse abdominal tendernes Extremities: No Edema Skin: No Rash or Ulcers Neurological: Alert and Oriented x 3 Lines/Tubes/Other Access: Clean, Dry and Intact Peripheral IV Result Diagrams: 06/22/16 05:53 06/21/16 06:34 Assess/Plan/Problems-Billing Assessment: Ms. Aguero is a 60 yo female with a PMH of chronic back pain who presented to the ED on 06/20/16 with abdominal pain and nausea. - Patient Problems (1) Abdominal pain Code(s): R10.9 - UNSPECIFIED ABDOMINAL PAIN Comment: Appreciate GI consult. Tmax 103 overnight. Leukocytosis improved following start of antibiotics, continue metronidazole and ceftriaxone, given her allergies to fluoroquinolones and penicillins. Etiology possible gastroenteritis /colitis, ?diverticulitis. Continue IVF and prn Morphine. Patient has declined a BARTENDERS and dislikes hydromorphone. Clear liquids. CT not able to idenitfy inflammatory process in abdomen or pelvis, no masses/ adenopathy/collection seen, Spigelian hernia on the right - continuing a nonobstructive segment of the proximal ascending colon. KUB and pelvic US negative for acute findings. (2) Chronic back pain Code(s): M54.9 - DORSALGIA, UNSPECIFIED; G89.29 - OTHER CHRONIC PAIN Comment: Continue home oxycodone PRN at reduced frequency, hold for sedation. (3) Anxiety Code(s): F41.9 - ANXIETY DISORDER, UNSPECIFIED Comment: Continue PRN alprazolam and supportive care. (4) DVT prophylaxis Comment: SQ heparin Status and Disposition: Inpatient admission. Anticipate LOS >2 days.
[2016-06-22] MEDS: Baclofen TAB* 10 MG PO PRN (19:50)
--- NOTE | 2016-06-22 20:05 | RAD ---
Indication: Fever. History of asthma. Comparison: June 20, [address] February 25, 2012 chest radiograph. Technique: Sitting AP and lateral chest views. Report: Elevated lung volumes. Diffuse mild to moderate prominence of the interstitial markings with subtle thickened peripheral interlobular septa. Trace pleural fluid in the major fissures. Negative for pneumothorax. Negative for cardiomegaly. Prominent central pulmonary vasculature. IMPRESSION: The constellation of findings is most suspicious for mild pulmonary vascular congestion and interstitial edema.
[2016-06-22] MEDS: Acetaminophen TAB* 325 MG PO PRN (20:41)
[2016-06-22] MEDS: Benzocaine/Menthol LOZ* 1 LOZENGE MT PRN (22:09)
[2016-06-23] MEDS: Morphine INJ* 4 MG/ML 1 ML CARPUJECT IV PRN ×11 (01:09→23:51)
[2016-06-23] MEDS: Heparin VIAL(*) 5000 UNITS/ML VIAL (FIVE THOUSAND) SUBCUT SCH ×4 (01:17→21:40)
[2016-06-23] MEDS: NS 0.9% 1000 ML* 1,000 ML IV SCH ×2 (01:53→10:36)
[2016-06-23] MEDS: metroNIDAZOLE IV 500 MG/100ML* 500 MG/100 ML BAG IVPB SCH ×3 (03:18→18:16)
[2016-06-23] MEDS: Baclofen TAB* 10 MG PO PRN ×4 (03:59→19:43)
[2016-06-23 06:12] LABS: Hematocrit 31 % (35-47); Mean Corpuscular HGB Conc 33 g/dl (31-36); Mean Corpuscular Hemoglobin 29 pg (27-31); Mean Corpuscular Volume 88 fL (80-97); Mean Platelet Volume 9 um3 (7.4-10.4); Red Blood Count 3.48 10^6/ul (4.0-5.4); Red Cell Distribution Width 14 % (10.5-15); White Blood Count 12.8 10^3/ul (3.5-10.8)
[2016-06-23 06:23] LABS: BUN/Creatinine Ratio 8.4 (8-20); Calcium 7.7 mg/dL (8.6-10.3); EGFR African American 90.8 (>60); EGFR Non-African American 70.6 (>60); Potassium 3.3 mmol/L (3.5-5.0)
[2016-06-23] MEDS: Benzocaine/Menthol LOZ* 1 LOZENGE MT PRN ×2 (06:49→14:02)
[2016-06-23 07:55] LABS: C Reactive Protein 246.52 mg/L (< 5.00)
[2016-06-23] MEDS: Acetaminophen TAB* 325 MG PO PRN (08:00)
[2016-06-23] MEDS: ALPRAZolam TAB* 0.5 MG PO PRN ×3 (08:01→19:43)
[2016-06-23] MEDS: cefTRIAXone VIAL(*) 1,000 MG in NS 0.9% 50 ML* 50 ML IVPB SCH (10:07)
[2016-06-23] MEDS ORDERED: NS 0.9% 1000 ML* 1,000 ML IV SCH (15:02)
--- NOTE | 2016-06-23 17:43 | PN ---
Subjective Date of Service: 06/23/16 Interval History: This is a 60 yo female with a h/o anxiety and chronic back pain who presented with c/o abdominal pain without vomiting or diarrhea. Patient has been treated empirically for suspected diverticulitis. She reports some improvement in abdominal pain, requiring less frequent morphine doses. She has some appetite. Tmax overnight = 100.7. Still no diarrhea. She has been ambulating the halls. Objective Active Medications: Acetaminophen (Tylenol Tab*) 650 mg PO Q4H PRN PRN Reason: FEVER/PAIN Last Admin: 06/23/16 08:00 Dose: 650 mg Al Hydrox/Mg Hydrox/Simethicone (Maalox Plus*) 30 ml PO Q6H PRN PRN Reason: INDIGESTION Alprazolam (Xanax Tab*) 0.5 mg PO TID PRN PRN Reason: ANXIETY Last Admin: 06/23/16 14:02 Dose: 0.5 mg Baclofen (Lioresal Tab*) 10 mg PO TID PRN PRN Reason: SPASMS Last Admin: 06/23/16 14:01 Dose: 10 mg Calcium Carbonate (Tums*) 500 mg PO Q4H PRN PRN Reason: INDIGESTION Docusate Sodium (Colace Cap*) 100 mg PO BID PRN PRN Reason: CONSTIPATION Last Admin: 06/21/16 23:26 Dose: 100 mg Heparin Sodium (Porcine) (Heparin Vial(*)) 5,000 units SUBCUT Q8HR [facility] Last Admin: 06/23/16 14:02 Dose: 5,000 units Ceftriaxone Sodium 1,000 mg/ (Sodium Chloride) 50 mls @ 200 mls/hr IVPB Q24H [facility] Last Admin: 06/23/16 10:07 Dose: 200 mls/hr Metronidazole/Sodium Chloride (Flagyl 500 Mg Ivpb*) 500 mg in 100 mls @ 100 mls /hr IVPB Q8H [facility] Last Admin: 06/23/16 10:37 Dose: 100 mls/hr Sodium Chloride (Ns 0.9% 1000 Ml*) 1,000 mls @ 75 mls/hr IV PER RATE [facility] Morphine Sulfate (Morphine Inj (Syringe)*) 4 mg IV Q2H PRN PRN Reason: PAIN Last Admin: 06/23/16 17:00 Dose: 4 mg Ondansetron HCl (Zofran Inj*) 4 mg IV Q4H PRN PRN Reason: NAUSEA/VOMITING Last Admin: 06/21/16 09:56 Dose: 4 mg Oxycodone HCl (Roxycodone Tab*) 15 mg PO Q8H PRN PRN Reason: PAIN Last Admin: 06/21/16 06:11 Dose: 15 mg Senna (Senokot Tab*) 1 tab PO BID PRN PRN Reason: CONSTIPATION Simethicone (Mylicon*) 80 mg PO Q6H PRN PRN Reason: DYSPEPSIA Last Admin: 06/22/16 02:53 Dose: 80 mg Throat Lozenges (Chloraseptic Ousmane*) 1 ousmane MT Q6H PRN PRN Reason: SORE THROAT Last Admin: 06/23/16 14:02 Dose: 1 ousmane Trazodone HCl (Desyrel Tab*) 100 mg PO BEDTIME PRN PRN Reason: INSOMNIA Vital Signs: Temp Pulse Resp BP Pulse Ox 98.8 F 85 18 106/57 98 06/23/16 15:21 06/23/16 15:21 06/23/16 17:00 06/23/16 15:21 06/23/16 15:21 Oxygen Devices in Use Now: None Appearance: Fatigued and ill appearing Respiratory: Symmetrical Chest Expansion and Respiratory Effort, Clear to Auscultation Cardiovascular: NL Sounds; No Murmurs; No JVD, RRR Abdominal: NL Sounds; No Tenderness; No Distention Extremities: No Edema Skin: No Rash or Ulcers Neurological: Alert and Oriented x 3 Result Diagrams: 06/23/16 05:59 06/23/16 05:59 Diagnostic Imaging: CT abd/pelvis - lg hernia, without evidence of obstruction, small pelvic free fluid, pericolonic inflammatory changes, small amount of gas in urinary bladder US RUQ - No biliary changes US Pelvis - Neither ovary is well visualize, free fluid present Abd XR - NAD CXR - mild PVC Assess/Plan/Problems-Billing Assessment: Ms. Aguero is a 60 yo female with a PMH of chronic back pain who presented to the ED on 06/20/16 with abdominal pain and nausea. - Patient Problems (1) Abdominal pain Comment: Appreciate GI consult Non-specific inflammatory changes present on CT CRP and procalcitonin elevated Noted improvement in leukocytosis with abx Will treat for presumed colitis/diverticulitis Cont ceftriaxone and Flagyl (2) Chronic back pain (3) Anxiety Comment: Continue PRN alprazolam and supportive care. Status and Disposition: Required continued inpatient care. Likely discharge in 2-3 days
[2016-06-24] MEDS: ALPRAZolam TAB* 0.5 MG PO PRN ×3 (01:52→20:03)
[2016-06-24] MEDS: metroNIDAZOLE IV 500 MG/100ML* 500 MG/100 ML BAG IVPB SCH ×3 (03:07→18:14)
[2016-06-24] MEDS: Morphine INJ* 4 MG/ML 1 ML CARPUJECT IV PRN ×6 (04:36→20:03)
[2016-06-24] MEDS: Heparin VIAL(*) 5000 UNITS/ML VIAL (FIVE THOUSAND) SUBCUT SCH ×3 (05:33→21:08)
[2016-06-24 05:58] LABS: Hematocrit 33 % (35-47); Hemoglobin 10.7 g/dl (12.0-16.0); Mean Corpuscular HGB Conc 33 g/dl (31-36); Mean Corpuscular Hemoglobin 29 pg (27-31); Mean Corpuscular Volume 90 fL (80-97); Red Blood Count 3.69 10^6/ul (4.0-5.4); Red Cell Distribution Width 15 % (10.5-15)
[2016-06-24 06:03] LABS: Albumin 2.4 g/dL (3.2-5.2); BUN/Creatinine Ratio 7.7 (8-20); C Reactive Protein 198.78 mg/L (< 5.00); Calcium 7.9 mg/dL (8.6-10.3); EGFR African American 97.6 (>60); EGFR Non-African American 75.9 (>60); Globulin 2.4 g/dL (2-4); Potassium 3.1 mmol/L (3.5-5.0); Total Bilirubin 0.4 mg/dL (0.2-1.0); Total Protein 4.8 g/dL (6.4-8.9)
[2016-06-24 06:06] LABS: Comments Flag Yes
[2016-06-24 06:07] LABS: Add Diff/Slide Review? Slide Review Added
[2016-06-24 06:52] LABS: Mean Platelet Volume 9 um3 (7.4-10.4)
[2016-06-24] MEDS ORDERED: Potassium Chlor TAB* 20 MEQ TAB.ER PO ONE (07:27)
[2016-06-24 07:56] LABS: Magnesium 1.9 mg/dL (1.9-2.7)
[2016-06-24] MEDS: Baclofen TAB* 10 MG PO PRN ×2 (09:14→20:01)
[2016-06-24] MEDS: Docusate CAP* 100 MG PO PRN (09:15)
--- NOTE | 2016-06-24 09:48 | RAD ---
HISTORY: Abdominal pain COMPARISONS: June 21, 2016 VIEWS: Frontal views of the abdomen. FINDINGS: BOWEL: There is a nonobstructive bowel gas pattern. Oral contrast is noted within the colon. CALCULI: There are no abnormal calculi. BONES AND SOFT TISSUES: There are no osseous abnormalities. OTHER FINDINGS: The lung bases are clear. There is no subphrenic gas. IMPRESSION: NONOBSTRUCTIVE BOWEL GAS PATTERN. ORAL CONTRAST IS NOTED WITHIN THE COLON.
[2016-06-24] MEDS: cefTRIAXone VIAL(*) 1,000 MG in NS 0.9% 50 ML* 50 ML IVPB SCH (09:57)
--- NOTE | 2016-06-24 10:39 | PN ---
Subjective Date of Service: 06/24/16 Interval History: Patient reports significant improvement today. Her appetite is starting to return. Abdominal pain has decreased in severity. She is having some rectal pain prior to bowel movements. She has had a couple low volume mucus filled bowel movements yesterday. Denies nausea or vomiting. Tmax overnight = 101.1F Objective Active Medications: Acetaminophen (Tylenol Tab*) 650 mg PO Q4H PRN PRN Reason: FEVER/PAIN Last Admin: 06/23/16 08:00 Dose: 650 mg Al Hydrox/Mg Hydrox/Simethicone (Maalox Plus*) 30 ml PO Q6H PRN PRN Reason: INDIGESTION Alprazolam (Xanax Tab*) 0.5 mg PO TID PRN PRN Reason: ANXIETY Last Admin: 06/24/16 09:14 Dose: 0.5 mg Baclofen (Lioresal Tab*) 10 mg PO TID PRN PRN Reason: SPASMS Last Admin: 06/24/16 09:14 Dose: 10 mg Calcium Carbonate (Tums*) 500 mg PO Q4H PRN PRN Reason: INDIGESTION Docusate Sodium (Colace Cap*) 100 mg PO BID PRN PRN Reason: CONSTIPATION Last Admin: 06/24/16 09:15 Dose: 100 mg Heparin Sodium (Porcine) (Heparin Vial(*)) 5,000 units SUBCUT Q8HR [facility] Last Admin: 06/24/16 05:33 Dose: Not Given Ceftriaxone Sodium 1,000 mg/ (Sodium Chloride) 50 mls @ 200 mls/hr IVPB Q24H [facility] Last Admin: 06/24/16 09:57 Dose: 200 mls/hr Metronidazole/Sodium Chloride (Flagyl 500 Mg Ivpb*) 500 mg in 100 mls @ 100 mls /hr IVPB Q8H [facility] Last Admin: 06/24/16 10:29 Dose: 100 mls/hr Morphine Sulfate (Morphine Inj (Syringe)*) 4 mg IV Q2H PRN PRN Reason: PAIN Last Admin: 06/24/16 09:16 Dose: 4 mg Ondansetron HCl (Zofran Inj*) 4 mg IV Q4H PRN PRN Reason: NAUSEA/VOMITING Last Admin: 06/21/16 09:56 Dose: 4 mg Senna (Senokot Tab*) 1 tab PO BID PRN PRN Reason: CONSTIPATION Simethicone (Mylicon*) 80 mg PO Q6H PRN PRN Reason: DYSPEPSIA Last Admin: 06/22/16 02:53 Dose: 80 mg Throat Lozenges (Chloraseptic Ousmane*) 1 ousmane MT Q6H PRN PRN Reason: SORE THROAT Last Admin: 06/23/16 14:02 Dose: 1 ousmane Trazodone HCl (Desyrel Tab*) 100 mg PO BEDTIME PRN PRN Reason: INSOMNIA Vital Signs: Temp Pulse Resp BP Pulse Ox 100.1 F 87 18 118/52 95 06/24/16 06:51 06/24/16 06:51 06/24/16 09:16 06/24/16 06:51 06/24/16 06:51 Oxygen Devices in Use Now: None Appearance: Mildly ill appearing, but much improved. Brighter affect, in NAD Respiratory: Symmetrical Chest Expansion and Respiratory Effort, Clear to Auscultation Cardiovascular: NL Sounds; No Murmurs; No JVD, RRR Abdominal: - - abd soft, BS present, some mild TTP in R lateral abdomen Extremities: No Edema Skin: No Rash or Ulcers Neurological: Alert and Oriented x 3 Result Diagrams: 06/24/16 05:34 06/24/16 05:35 Diagnostic Imaging: CT abd/pelvis - lg hernia, without evidence of obstruction, small pelvic free fluid, pericolonic inflammatory changes, small amount of gas in urinary bladder US RUQ - No biliary changes US Pelvis - Neither ovary is well visualize, free fluid present Abd XR - NAD CXR - mild PVC XR abd - no obstruction Assess/Plan/Problems-Billing Assessment: Ms. Aguero is a 60 yo female with a PMH of chronic back pain who presented to the ED on 06/20/16 with abdominal pain and nausea. - Patient Problems (1) Abdominal pain Comment: Noted improvement in abdominal pain and appetite starting to return Appreciate GI consult Non-specific inflammatory changes present on CT CRP and procalcitonin elevated Noted improvement in leukocytosis with abx Will continue to treat for presumed colitis/diverticulitis Cont ceftriaxone and Flagyl Will advance to a soft diet (2) Hypokalemia Comment: Magnesium nl Will replace orally, repeat BMP tomorrow (3) Chronic back pain (4) Anxiety Comment: Continue PRN alprazolam and supportive care. Status and Disposition: Required continued inpatient care but noted significant improvement. Anticipate potential discharge for tomorrow.
[2016-06-24] MEDS: Simethicone TAB* 80 MG TAB.CHEW PO PRN (14:00)
[2016-06-24] MEDS: oxyCODONE TAB* 5 MG TAB PO PRN ×2 (14:01→20:02)
[2016-06-25] MEDS: Morphine INJ* 4 MG/ML 1 ML CARPUJECT IV PRN ×5 (02:55→16:16)
[2016-06-25] MEDS: oxyCODONE TAB* 5 MG TAB PO PRN ×3 (02:56→20:06)
[2016-06-25] MEDS: ALPRAZolam TAB* 0.5 MG PO PRN ×2 (02:57→16:18)
[2016-06-25] MEDS: metroNIDAZOLE IV 500 MG/100ML* 500 MG/100 ML BAG IVPB SCH ×3 (03:02→20:03)
[2016-06-25] MEDS: Heparin VIAL(*) 5000 UNITS/ML VIAL (FIVE THOUSAND) SUBCUT SCH ×4 (04:14→21:40)
[2016-06-25 06:48] LABS: Hematocrit 34 % (35-47); Hemoglobin 11.1 g/dl (12.0-16.0); Mean Corpuscular HGB Conc 33 g/dl (31-36); Mean Corpuscular Hemoglobin 29 pg (27-31); Mean Corpuscular Volume 87 fL (80-97); Mean Platelet Volume 9 um3 (7.4-10.4); Red Blood Count 3.86 10^6/ul (4.0-5.4); Red Cell Distribution Width 14 % (10.5-15); White Blood Count 13.2 10^3/ul (3.5-10.8)
[2016-06-25 07:08] LABS: Calcium 8.2 mg/dL (8.6-10.3); EGFR African American 87.2 (>60); EGFR Non-African American 67.8 (>60); Potassium 3.5 mmol/L (3.5-5.0)
[2016-06-25 07:30] LABS: C Reactive Protein 189.57 mg/L (< 5.00)
[2016-06-25] MEDS: Ondansetron INJ* 2 MG/ML VIAL IV PRN (09:25)
[2016-06-25] MEDS: cefTRIAXone VIAL(*) 1,000 MG in NS 0.9% 50 ML* 50 ML IVPB SCH (09:26)
--- NOTE | 2016-06-25 11:17 | PN ---
Subjective Date of Service: 06/25/16 Interval History: Patient reports increased pain again this am and decreased appetite. No vomiting or diarrhea. She was feeling quite well yesterday evening. She was up and walking the halls, conversing with nursing and smiling at that time. Patient's stated that she had some peaches yesterday evening. She has been afebrile overnight. Objective Active Medications: Acetaminophen (Tylenol Tab*) 650 mg PO Q4H PRN PRN Reason: FEVER/PAIN Last Admin: 06/23/16 08:00 Dose: 650 mg Al Hydrox/Mg Hydrox/Simethicone (Maalox Plus*) 30 ml PO Q6H PRN PRN Reason: INDIGESTION Alprazolam (Xanax Tab*) 0.5 mg PO TID PRN PRN Reason: ANXIETY Last Admin: 06/25/16 02:57 Dose: 0.5 mg Baclofen (Lioresal Tab*) 10 mg PO TID PRN PRN Reason: SPASMS Last Admin: 06/24/16 20:01 Dose: 10 mg Calcium Carbonate (Tums*) 500 mg PO Q4H PRN PRN Reason: INDIGESTION Last Admin: 06/24/16 14:00 Dose: 500 mg Docusate Sodium (Colace Cap*) 100 mg PO BID PRN PRN Reason: CONSTIPATION Last Admin: 06/24/16 09:15 Dose: 100 mg Heparin Sodium (Porcine) (Heparin Vial(*)) 5,000 units SUBCUT Q8HR [facility] Last Admin: 06/25/16 04:50 Dose: 5,000 units Ceftriaxone Sodium 1,000 mg/ (Sodium Chloride) 50 mls @ 200 mls/hr IVPB Q24H [facility] Last Admin: 06/25/16 09:26 Dose: 200 mls/hr Metronidazole/Sodium Chloride (Flagyl 500 Mg Ivpb*) 500 mg in 100 mls @ 100 mls /hr IVPB Q8H [facility] Last Admin: 06/25/16 03:02 Dose: 100 mls/hr Morphine Sulfate (Morphine Inj (Syringe)*) 4 mg IV Q2H PRN PRN Reason: PAIN Last Admin: 06/25/16 09:13 Dose: 4 mg Nicotine (Nicotine Patch 14 Mg/24 Hr*) 1 patch TRANSDERM Q24HR [facility] Ondansetron HCl (Zofran Inj*) 4 mg IV Q4H PRN PRN Reason: NAUSEA/VOMITING Last Admin: 06/25/16 09:25 Dose: 4 mg Oxycodone HCl (Roxycodone Tab*) 15 mg PO Q4H PRN PRN Reason: PAIN Last Admin: 06/25/16 02:56 Dose: 15 mg Pharmacy Profile Note (Nicotine Patch Removal Note*) 1 note FOLLOW UP 2100 GENA Senna (Senokot Tab*) 1 tab PO BID PRN PRN Reason: CONSTIPATION Simethicone (Mylicon*) 80 mg PO Q6H PRN PRN Reason: DYSPEPSIA Last Admin: 06/24/16 14:00 Dose: 80 mg Throat Lozenges (Chloraseptic Ousmane*) 1 ousmane MT Q6H PRN PRN Reason: SORE THROAT Last Admin: 06/23/16 14:02 Dose: 1 ousmane Trazodone HCl (Desyrel Tab*) 100 mg PO BEDTIME PRN PRN Reason: INSOMNIA Last Admin: 06/24/16 20:02 Dose: 100 mg Vital Signs: Temp Pulse Resp BP Pulse Ox 98.7 F 88 18 104/59 94 06/25/16 07:41 06/25/16 07:41 06/25/16 09:13 06/25/16 07:41 06/25/16 07:41 Oxygen Devices in Use Now: None Appearance: Ill appearing female in mild distress, accompanied by her Respiratory: Symmetrical Chest Expansion and Respiratory Effort Cardiovascular: NL Sounds; No Murmurs; No JVD, RRR Abdominal: - - BS present, abd soft, TTP in RLQ Extremities: - - trace LE edema Neurological: Alert and Oriented x 3, NL Gait Result Diagrams: 06/25/16 05:41 06/25/16 05:41 Diagnostic Imaging: CT abd/pelvis - lg hernia, without evidence of obstruction, small pelvic free fluid, pericolonic inflammatory changes, small amount of gas in urinary bladder US RUQ - No biliary changes US Pelvis - Neither ovary is well visualize, free fluid present Abd XR - NAD CXR - mild PVC XR abd - no obstruction Assess/Plan/Problems-Billing Assessment: Ms. Aguero is a 60 yo female with a PMH of chronic back pain who presented to the ED on 06/20/16 with abdominal pain and nausea. - Patient Problems (1) Abdominal pain Comment: Noted improvement in abdominal pain and appetite starting to return yesterday, but worse again today after advancing diet WBC increased slightly today, CRP still trending down, procalcitonin pending for today Appreciate GI consult Non-specific inflammatory changes present on CT Will continue to treat for presumed colitis/diverticulitis Cont ceftriaxone and Flagyl Will back off on her diet to clears again and plan to re-evaluate in the afternoon, if pain is worse again then will repeat CT scan Spoke with patient, her , and daughter in detail regarding her treatment plan, patient is getting frustrated with her hospital stay and this set back in her symptoms (2) Hypokalemia Comment: Resolved (3) Chronic back pain (4) Anxiety Comment: Continue PRN alprazolam and supportive care. Status and Disposition: Required continued inpatient care. Hopeful for discharge in 1-2 days
[2016-06-25] MEDS: Nicotine PATCH 14 MG/24 HR* PATCH TRANSDERM SCH (17:05)
[2016-06-25] MEDS: Acetaminophen TAB* 325 MG PO PRN (20:05)
[2016-06-25] MEDS: Docusate CAP* 100 MG PO PRN (20:16)
[2016-06-25] MEDS ORDERED: Nicotine Patch Removal NOTE FOLLOW UP SCH (21:00)
[2016-06-26] MEDS: metroNIDAZOLE IV 500 MG/100ML* 500 MG/100 ML BAG IVPB SCH ×2 (03:24→11:03)
[2016-06-26] MEDS: Heparin VIAL(*) 5000 UNITS/ML VIAL (FIVE THOUSAND) SUBCUT SCH (05:29)
[2016-06-26] MEDS: Morphine INJ* 4 MG/ML 1 ML CARPUJECT IV PRN (07:20)
[2016-06-26] MEDS: Ondansetron INJ* 2 MG/ML VIAL IV PRN (07:24)
[2016-06-26 07:37] VITALS: BP 121/56
[2016-06-26 07:38] LABS: Hematocrit 32 % (35-47); Hemoglobin 10.5 g/dl (12.0-16.0); Mean Corpuscular HGB Conc 33 g/dl (31-36); Mean Corpuscular Hemoglobin 29 pg (27-31); Mean Corpuscular Volume 87 fL (80-97); Mean Platelet Volume 8 um3 (7.4-10.4); Red Blood Count 3.69 10^6/ul (4.0-5.4); Red Cell Distribution Width 15 % (10.5-15)
[2016-06-26 07:57] LABS: Albumin 2.5 g/dL (3.2-5.2); BUN/Creatinine Ratio 7.5 (8-20); C Reactive Protein 161.99 mg/L (< 5.00); Calcium 7.9 mg/dL (8.6-10.3); EGFR African American 94.7 (>60); EGFR Non-African American 73.7 (>60); Globulin 2.7 g/dL (2-4); Potassium 3.7 mmol/L (3.5-5.0); Total Bilirubin 0.4 mg/dL (0.2-1.0); Total Protein 5.2 g/dL (6.4-8.9)
[2016-06-26] MEDS: cefTRIAXone VIAL(*) 1,000 MG in NS 0.9% 50 ML* 50 ML IVPB SCH (09:48)
[2016-06-26] MEDS: Docusate CAP* 100 MG PO PRN (09:56)
[2016-06-26] MEDS: oxyCODONE TAB* 5 MG TAB PO PRN (09:56)
[2016-06-26] MEDS: Baclofen TAB* 10 MG PO PRN (09:57)
[2016-06-26] MEDS: Nicotine PATCH 14 MG/24 HR* PATCH TRANSDERM SCH (10:00)
[2016-06-26] MEDS ORDERED: Magnesium CITRATE* 300 ML BTL PO ONE (10:35)
[2016-06-26] MEDS ORDERED: diPHENhydraMINE PO* 25 MG PO ONE (11:01)
[2016-06-26] MEDS ORDERED: diPHENhydraMINE PO* 25 MG ONE (11:02)
--- NOTE | 2016-06-26 21:05 | DS ---
DISCHARGE SUMMARY: DATE OF ADMISSION: 06/20/16 DATE OF DISCHARGE: 06/26/16 PRIMARY CARE PROVIDER: KARLO Castellon at [facility]. DISCHARGING PROVIDER: KARLO Jesus SUPERVISING PHYSICIAN: Tere Kiran DO * (DICTATED BY KARLO JESUS) PRIMARY DISCHARGE DIAGNOSES: 1. Suspected diverticulitis. 2. Hypokalemia. SECONDARY DISCHARGE DIAGNOSES: 1. Chronic back pain. 2. Anxiety. 3. Morbid obesity with a BMI of 42. DISCHARGE MEDICATIONS: 1. Alprazolam 0.5 mg p.o. t.i.d. as needed for anxiety. 2. Aspirin 81 mg p.o. daily. 3. Baclofen 10 mg p.o. t.i.d. as needed for pain and spasm. 4. Cefpodoxime 200 mg p.o. q.12 hours x5 days. 5. Furosemide 40 mg p.o. daily. 6. Hydrochlorothiazide 12.5 mg p.o. daily. 7. Methyl B12 1000 mcg p.o. daily. 8. Flagyl 500 mg p.o. t.i.d. x5 days. 9. Aleve 220 mg p.o. b.i.d. as needed for pain. 10. Oxycodone 15 mg p.o. q.4 hours as needed for pain. MEDICATION CHANGES: 1. Flagyl x5 days. 2. Cefpodoxime x5 days - please note that fluoroquinolone was not prescribed due to allergy to LEVOFLOXACIN. HOSPITAL IMAGIN. CT of the abdomen and pelvis, 06/19/16, shows midline abdominal hernia containing a small portion of her ascending colon without evidence of obstruction or inflammatory change. There is a small amount of free fluid contiguous with the right adnexa and right border of the uterus. The sigmoid colon shows diverticulum with a small focus of free peritoneal gas and pericolonic inflammatory changes. Also noted is a small focus of gas in the urinary bladder. 2. Ultrasound of the abdomen, 06/20/16, of her right upper quadrant shows no evidence of cholelithiasis or biliary duct dilatation. 3. Pelvic ultrasound not able to visualize the adnexa, small amount of pelvic fluid is noted. 4. X-ray of the abdomen, 06/21/16, shows no evidence of obstruction. 5. Chest x-ray, 06/22/16, shows mild pulmonary venous congestion and some interstitial edema, no other acute findings. 6. X-ray of the abdomen, 06/24/16, shows the nonobstructive bowel gas pattern with some oral contrast noted within the colon. HOSPITAL COURSE: This is a 60-year-old female with a history of chronic back pain and anxiety, who presented to the emergency department with complaints of abdominal pain. She had no associated vomiting or diarrhea. She had a poor appetite; however, with some associated nausea. Her initial imaging was fairly nonspecific. There was concern for an inflammatory colonic process versus possible fistula between the sigmoid colon and the urinary bladder. Urine studies on two occasions showed no evidence of contamination making a fistula quite unlikely. The patient's pain was more consistent with a colonic inflammatory process likely representing a diverticulitis. The patient complained of wave like cramping abdominal pain as well as some rectal pain proceeding bowel movements. Her bowel movements were generally of low volume and mucusy. Initial white blood cell count was 23,000 with an additional CRP of 37, but that peaked as high as 210 before it started to drift back down and she was mildly hypokalemic at presentation with a sodium of 132 mmol/L. Renal function was within normal limits. Lactic acid was 1.1. The patient was empirically treated for presumed diverticulitis or colitis with ceftriaxone and Flagyl. She has a noted allergy to LEVAQUIN, so Cipro was avoided in this case. The patient was slow to improve, continuing to complain of abdominal pain and poor appetite. Her CRPs were followed as well as procalcitonin, which peaked at 1.2 and drifted down to 0.4 at the time of discharge. CRP trended down to 161 at the time of discharge. The patient's white blood cell count initially improved and then drifted back up shortly. The patient was intermittently febrile throughout the first 4 days of her hospital admission spiking fevers as high as 103 degrees Fahrenheit. In the last 48 hours prior to discharge, however, she was afebrile and noted some improvement in her abdominal pain. At one point in her hospital course, attempted to progress her diet to a soft diet and she unfortunately ate some peaches which set her back quite significantly with increased pain, which frustrated her significantly. The patient's diet was backed off back to a full liquid diet and her pain began to improve again. DISPOSITION AND FOLLOWUP PLAN: The patient is being discharged to home where she lives with her . Recommend additional 5 days of oral antibiotics specifically cefpodoxime and Flagyl were prescribed for her. Recommend that she continue on low fiber softer liquid diet for the next several days until her symptoms resolved completely. She requires close followup with her primary care provider to ensure that she continues to improve. If her symptoms become worse again, she should return to the emergency department for repeat imaging. The patient will resume the remainder of her home medications. No other medication changes made except for as listed above. KARLO JESUS CC: KARLO Castellon * [id number]/[facility] #: [id number] MTDD
== END 2016-06-26 12:45 | disposition home or self-care (01) | DRG 244 ==
LOC: ED 18:40 → MED 06-20 02:09 → OBSVTOIN 06-21 17:53
PROVIDERS: ADMIT Pediatrics; ATTEND Hospitalist
DX: K57.92 Diverticulitis of intestine, part unspecified, without perforation or abscess without bleeding (principal); Z68.41 Body mass index [BMI] 40.0-44.9, adult; G89.29 Other chronic pain; M54.9 Dorsalgia, unspecified; F41.9 Anxiety disorder, unspecified; F17.210 Nicotine dependence, cigarettes, uncomplicated; K43.9 Ventral hernia without obstruction or gangrene; M48.00 Spinal stenosis, site unspecified; E87.6 Hypokalemia; E66.01 Morbid (severe) obesity due to excess calories; K57.30 Diverticulosis of large intestine without perforation or abscess without bleeding; K52.9 Noninfective gastroenteritis and colitis, unspecified; Z88.1 Allergy status to other antibiotic agents; Z88.0 Allergy status to penicillin; Z88.8 Allergy status to other drugs, medicaments and biological substances; Z91.030 Bee allergy status; Z82.49 Family history of ischemic heart disease and other diseases of the circulatory system; Z79.82 Long term (current) use of aspirin
CPT/HCPCS: 36415; 71020; 74000; 74177; 76705; 76856; 80048; 80053; 80074; 81003; 81015; 83605; 83690; 83735; 84145; 85025; 86140; 87040; 99285; 99406; A9270-GY; G0378; J0696; J1170; J1644; J2270; J2405; J3370; J3490; Q9967

== ENCOUNTER 2016-06-28 22:53 | Inpatient (IN) | payer BC ==
[2016-06-29] MEDS ORDERED: HYDROmorphone INJ* 1 MG/ML CARPUJECT SYRINGE IV SLOW PU ONE (00:07)
--- NOTE | 2016-06-29 00:20 | ED ---
Milan Weston Karl, scribed for Deni Pérez MD on 06/28/16 at 2317 . GI/ HPI - HPI Summary HPI Summary: Pt is a 60 y/o female BIBA from [facility] that presents to the ED for evaluation of diverticulitis with abcess. Pt reported constant 10/10 pain in her lower abd that began 06/18/16. Pt was d/c from hospital with the abd pain on 06/25/16 and has been suffering from constant lower abd pain since. - History of Current Complaint Chief Complaint: EDAbdPain Time Seen by Provider: 06/28/16 23:11 Stated Complaint: ABD PAIN COMMING FROM [facility] Obtained From: Patient Onset/Duration: Started Hours Ago Timing: Constant Severity: Moderate Current Severity: Moderate Pain Intensity: 10 - 0-10 numeric scale Location of Pain: Diffuse - lower abd Aggravating Factor(s): Nothing Alleviating Factor(s): Nothing - Additional Pertinent History Primary Care Physician: HERI - Allergy/Home Medications Allergies/Adverse Reactions: Allergies Allergy/AdvReac Type Severity Reaction Status Date / Time Bee Venom Allergy Unknown Verified 03/19/16 10:55 Reaction Details Ibuprofen Allergy Nausea And Verified 03/19/16 10:55 Vomiting Levofloxacin [From Levaquin] Allergy Hives Verified 06/19/16 19:37 Penicillins [PCN] Allergy Hives Verified 03/19/16 10:55 Home Medications: Home Medications Cefpodoxime (NF) [Vantin (NF)] 200 mg PO TID 06/29/16 [History Confirmed ] Senna/Docusate (NF) [Sennokot-S(NF)] 1 tab PO DAILY 06/29/16 [History Confirmed 06/29/16] PMH/Surg Hx/FS Hx/Imm Hx Endocrine/Hematology History: Denies: Hx Blood Disorders, Hx Diabetes, Hx Thyroid Disease, Hx Anemia Cardiovascular History: Denies: Hx Hypertension Respiratory History: Reports: Hx Asthma, Hx Pneumonia, Hx Seasonal Allergies History: Denies: Hx Dialysis, Hx Renal Disease Musculoskeletal History: Reports: Hx Back Problems - Chronic back pain, stenosis , herniated disks, Hx Osteoporosis Sensory History: Reports: Hx Contacts or Glasses Opthamlomology History: Reports: Hx Contacts or Glasses Neurological History: Reports: Hx Spinal Cord Injury, Hx Transient Ischemic Attacks (TIA), Other Neuro Impairments/Disorders - PAIN CLINIC PT Psychiatric History: Reports: Hx Anxiety Infectious Disease History: No Infectious Disease History: Denies: Traveled Outside the [place] in Last 30 Days - Family History Known Family History: Positive: Cardiac Disease, Hypertension Negative: Diabetes - Social History Alcohol Use: Occasionally Hx Substance Use: No Substance Use Type: Reports: None Hx Tobacco Use: Yes Smoking Status (MU): Light Every Day Tobacco Smoker Type: Cigarettes Amount Used/How Often: 7-8 cigarettes per day Have You Smoked in the Last Year: Yes Review of Systems Constitutional: Negative Eyes: Negative ENT: Negative Cardiovascular: Negative Respiratory: Negative Positive: Abdominal Pain Genitourinary: Negative Musculoskeletal: Negative Skin: Negative Neurological: Negative Psychological: Normal All Other Systems Reviewed And Are Negative: Yes Physical Exam Triage Information Reviewed: Yes Vital Signs On Initial Exam: Initial Vitals Temp Pulse Resp BP Pulse Ox 98.8 F 75 16 117/69 95 06/28/16 23:00 06/28/16 23:00 06/28/16 23:00 06/28/16 23:00 06/28/16 23:00 Vital Signs Reviewed: Yes Appearance: Positive: Well-Appearing, Pain Distress - mod discomfort Skin: Positive: Warm Eyes: Positive: KAROL ENT: Positive: Hearing grossly normal Neck: Positive: Supple Respiratory/Lung Sounds: Positive: Breath Sounds Present Cardiovascular: Positive: Normal Abdomen Description: Positive: Soft, Guarding, Other: - mild difuse lower abd tenderness. Negative: Distended Bowel Sounds: Positive: Present Musculoskeletal: Positive: Strength/ROM Intact Neurological: Positive: Sensory/Motor Intact, Alert, Oriented to Person Place, Time Diagnostics - Vital Signs Vital Signs Temp Pulse Resp BP Pulse Ox 06/28/16 23:00 98.8 F 75 16 117/69 95 - Laboratory Result Diagrams: 06/29/16 00:50 06/29/16 00:50 Lab Statement: Any lab studies that have been ordered have been reviewed, and results considered in the medical decision making process. GIGU Course/Dx - Diagnoses Provider Diagnoses: Diverticulitis of intestine with abscess - Physician Notifications Discussed Care Of Patient With: Dr. Lemus (Surgery) at 23:21 who suggested contacting the hospitalist. Dr. Elder (Hospitalist) at 23:24 who agreed to admit the pt. Instructed by Provider To: Admit As Inpatient Discharge - Discharge Plan Condition: Fair Disposition: ADMITTED TO [facility] The documentation as recorded by the Milan sutton Karl accurately reflects the service I personally performed and the decisions made by me, Deni Pérez MD.
[2016-06-29 01:19] LABS: Hematocrit 32 % (35-47); Hemoglobin 10.3 g/dl (12.0-16.0); Mean Corpuscular HGB Conc 33 g/dl (31-36); Mean Corpuscular Hemoglobin 28 pg (27-31); Mean Corpuscular Volume 87 fL (80-97); Mean Platelet Volume 8 um3 (7.4-10.4); Red Blood Count 3.63 10^6/ul (4.0-5.4); Red Cell Distribution Width 15 % (10.5-15); White Blood Count 12.9 10^3/ul (3.5-10.8)
[2016-06-29 01:30] LABS: Albumin 2.5 g/dL (3.2-5.2); BUN/Creatinine Ratio 4.7 (8-20); Calcium 8.1 mg/dL (8.6-10.3); EGFR African American 88.3 (>60); EGFR Non-African American 68.7 (>60); Globulin 2.8 g/dL (2-4); Potassium 3.2 mmol/L (3.5-5.0); Total Bilirubin 0.4 mg/dL (0.2-1.0); Total Protein 5.3 g/dL (6.4-8.9)
[2016-06-29] MEDS: Meropenem 1 GM PREMIX(*) 1 GM/50 ML BAG IV SCH ×3 (02:23→18:24)
--- NOTE | 2016-06-29 02:31 | HP ---
H&P (Free Text) History and Physical: PCP: KARLO Brand Date/Time of Evaluation: 06/29/2016 0030 CC: abdominal pain, nausea, fever HPI: Mrs Aguero is a 60YO female admitted to [facility] [place] - 06/26/2015 for suspected diverticulitis treated with metronidazole & ceftriaxone. She was discharged after being afebrile for 48h with decreasing pain, but elevating WBCs on 5days metronidazole & cefpodoxime (allergy to PCNs & quinolones). She states her pain and nausea began to increase within the first 24hours prompting her to call her PCP and be evaluated. From there they were sent to [place] ED where repeat CT abdomen revealed progression of sigmoid diverticulitis with multiple pelvic abscesses one of which is impinging the R ureter resulting in mild hydronephrosis. She states she has had watery to loose bowel movements since arriving to [facility] ED tonight, but prior to that states she had not passed stool or flatus for 9 days. She denies chest pain, SOB, palpitations, or other issues. Gabriele Lemus MD surgery was contacted by [facility] ED and advised ED to ED transfer. He then called me asking for admission unless there was acute surgical concern, of which there is none. Of note prior to transfer, the only ABX Mrs Aguero received was 10cc of piperacillin/tazobactam which was d/c'd presumably 2nd PCN allergy. She denies SOB, chest tightness, swelling, or other acute allergic symptoms. PMedHx diverticulitis failed outpatient treatment (acute) chronic LBP anxiety morbid obesity Allergies Bee Venom Allergy (Verified 03/19/16 10:55) Unknown Reaction Details Ibuprofen Allergy (Verified 03/19/16 10:55) Nausea And Vomiting Levofloxacin [From Levaquin] Allergy (Verified 06/19/16 19:37) Hives Penicillins [PCN] Allergy (Verified 03/19/16 10:55) Hives Ambulatory Orders ALPRAZolam TAB* [Xanax TAB*] 0.5 mg PO TID PRN 03/19/16 Baclofen TAB* [Lioresal TAB*] 10 mg PO TID 03/19/16 Oxycodone HCl [Oxycodone HCl 15 mg tab] 15 mg PO Q4H PRN 03/19/16 Metronidazole [Flagyl 500 MG TAB] 500 mg PO TID #15 tab 06/26/16 Cefpodoxime (NF) [Vantin (NF)] 200 mg PO TID 06/29/16 Senna/Docusate (NF) [Sennokot-S(NF)] 1 tab PO DAILY 06/29/16 SocHx: 1PPD cigarettes w/ >30PYHX, occasional alcohol, no recreational drugs; lives with her ; 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; full code status FamHx: reviewed, non-contributory to presentation ROS: as above, otherwise reviewed and all were negative Constitutional: NAD, normally developed, morbidly obese white female vitals: Vital Signs Temp 37.1 C 06/28/16 23:00 Pulse 95 06/29/16 00:06 Resp 18 06/29/16 00:18 BP 121/72 06/29/16 00:06 Pulse Ox 94 06/29/16 00:06 Intake & Output 06/28/16 06/28/16 06/29/16 11:59 23:59 11:59 Weight 235 lb HEENM: atraumatic; sclera/conjunctiva: non-icteric/clear; hearing: clinically intact; oropharynx: clear, mucosa moist Neck: soft tissue: non-tender; thyroid: normal Pulmonary: clear to auscultation bilaterally, good aeration, no accessory muscle use CV: RR/RR, normal S1S2, no carotid bruit, no jugular venous distention, 2+ B DP/ PT, no edema Abdominal: soft, non-distended, moderately tender LLQ with voluntary guarding but no rebound/rigidity, normoactive bowel sounds, no hepatosplenomegaly or masses, no costovertebral angle tenderness Musculoskeletal: general: grossly intact; gait: stable Integumental: normal appearance and texture Psychiatric orientation: AA&O to PPS affect: fatigued (just received 1mg hydromorphone) mood: cooperative eye contact: fair content: reliable responses: mildly slowed insight: good Testing: Lab Results 06/29/16 06/29/16 Range/Units 00:50 00:50 WBC 12.9 H (3.5-10.8) 10^3/ul RBC 3.63 L (4.0-5.4) 10^6/ul Hgb 10.3 L (12.0-16.0) g/dl Hct 32 L (35-47) % MCV 87 (80-97) fL MCH 28 (27-31) pg MCHC 33 (31-36) g/dl RDW 15 (10.5-15) % Plt Count 462 H D (150-450) 10^3/ul MPV 8 (7.4-10.4) um3 Neut % (Auto) 71.1 (38-83) % Lymph % (Auto) 19.6 L (25-47) % Sibley % (Auto) 6.4 (1-9) % Eos % (Auto) 1.6 (0-6) % Baso % (Auto) 1.3 (0-2) % Absolute Neuts (auto) 9.2 H (1.5-7.7) 10^3/ul Absolute Lymphs (auto) 2.5 (1.0-4.8) 10^3/ul Absolute Monos (auto) 0.8 (0-0.8) 10^3/ul Absolute Eos (auto) 0.2 (0-0.6) 10^3/ul Absolute Basos (auto) 0.2 (0-0.2) 10^3/ul Absolute Nucleated RBC 0 10^3/ul Nucleated RBC % 0 Sodium 138 (133-145) mmol/L Potassium 3.2 L (3.5-5.0) mmol/L Chloride 102 (101-111) mmol/L Carbon Dioxide 31 (22-32) mmol/L Anion Gap 5 (2-11) mmol/L BUN 4 L (6-24) mg/dL Creatinine 0.85 (0.51-0.95) mg/dL Est GFR ( Amer) 88.3 (>60) Est GFR (Non-Af Amer) 68.7 (>60) BUN/Creatinine Ratio 4.7 L (8-20) Glucose 88 (70-100) mg/dL Calcium 8.1 L (8.6-10.3) mg/dL Total Bilirubin 0.40 (0.2-1.0) mg/dL AST 25 (13-39) U/L ALT 13 (7-52) U/L Alkaline Phosphatase 49 (34-104) U/L Total Protein 5.3 L (6.4-8.9) g/dL Albumin 2.5 L (3.2-5.2) g/dL Globulin 2.8 (2-4) g/dL Albumin/Globulin Ratio 0.9 L (1-3) CT abd/pel, report reviewed: sigmoid diverticulitis w/ multiple pelvic abscesses one impinging the R ureter with mild hydronephrosis Impression: 60F presenting with sigmoid diverticulitis progressing to multiple pelvic abscesses on outpatient ABX DIAGNOSIS & PLAN Primary sigmoid diverticulitis progressing to multiple pelvic abscesses : IV meropenem 1g IV Q8H (allergy to PCN & levofloxacin) : Gabriele Lemus MD surgery consulted via phone, will evaluate in AM : consult urology in AM for mild R hydronephrosis 2nd extrinsic compression via abscess : IVFs : pain control : blood CXs : NPO status : supplemental oxygen : supportive care hypoKalemia : replace & recheck suspect protein-calorie malnutrition : check pre-albumin in AM Secondary chronic LBP : pain control tobacco use disorder, suspect undiagnosed COPD : albuterol nebs : mometasone/formoterol : tiotropium : incentive spirometry : cessation advised, low motivation anxiety : continue alprazolam PRN Admission Rational: inpatient for management of diverticulitis failed outpatient treatment DVTp: SCDs & heparin SQ Code Status: full HCP:
[2016-06-29] MEDS ORDERED: PROCHLORPERAZINE INJ 5 MG/ML 2 ML VIAL IV PRN (02:32)
[2016-06-29] MEDS ORDERED: Acetaminophen SUPP* 650 MG SUPP PR PRN (02:32)
[2016-06-29] MEDS ORDERED: Albuterol 2.5 MG/3 ML NEB.SOL* (0.083%) INH PRN (02:32)
[2016-06-29] MEDS ORDERED: NS 0.9% 1000 ML* 1,000 ML IV SCH (02:45)
[2016-06-29] MEDS: HYDROmorphone INJ* 1 MG/ML CARPUJECT SYRINGE IV PRN ×7 (03:15→19:28)
[2016-06-29] MEDS: NS 0.9% 1000 ML* 1,000 ML IV SCH ×2 (03:21→10:48)
[2016-06-29] MEDS: KCL 20 MEQ/100 ML IVPREMIX* 20 MEQ/100 ML BAG IV SCH ×2 (05:06→12:20)
[2016-06-29] MEDS: Albuterol 2.5 MG/3 ML NEB.SOL* (0.083%) INH SCH ×3 (07:24→19:50)
[2016-06-29] MEDS: Mometasone/Formoter 200/5 MDI INH SCH ×2 (07:25→19:50)
[2016-06-29 07:41] LABS: Hematocrit 34 % (35-47); Mean Corpuscular HGB Conc 33 g/dl (31-36); Mean Corpuscular Hemoglobin 29 pg (27-31); Mean Corpuscular Volume 87 fL (80-97); Mean Platelet Volume 8 um3 (7.4-10.4); Red Blood Count 3.88 10^6/ul (4.0-5.4); Red Cell Distribution Width 15 % (10.5-15); White Blood Count 14.9 10^3/ul (3.5-10.8)
[2016-06-29 07:57] LABS: Comments Flag Yes
[2016-06-29 07:58] LABS: Add Diff/Slide Review? Slide Review Added
[2016-06-29] MEDS: Pantoprazole IV* 40 MG IV SCH (08:06)
[2016-06-29 08:24] LABS: BUN/Creatinine Ratio 5.3 (8-20); Calcium 7.7 mg/dL (8.6-10.3); EGFR African American 100.5 (>60); EGFR Non-African American 78.2 (>60)
[2016-06-29] MEDS ORDERED: Tiotropium CAP.INH* CAP.INH/18 MCG (USE ORDER SET !) INH SCH (09:00)
[2016-06-29] MEDS ORDERED: Spiriva Inhaler DEVICE* 1 EACH DEVICE INH ONE (09:00)
[2016-06-29] MEDS ORDERED: Nicotine PATCH 21 MG/24 HR* PATCH TRANSDERM PRN (10:10)
[2016-06-29] MEDS: Morphine INJ* 2 MG/ML 1 ML CARPUJECT IV PRN ×2 (10:47→12:21)
--- NOTE | 2016-06-29 11:43 | CONS ---
UROLOGY CONSULT: DATE OF CONSULT: 06/29/16 REQUESTING PHYSICIAN: Dr. Rayo Elder. DIAGNOSES: 1. Diverticulitis with pelvic abscess. 2. Right hydronephrosis. REASON FOR CONSULT: Karyn Aguero is a 60-year-old lady with history of diverticulitis. She had recently been hospitalized and subsequently discharged. She is now readmitted after transfer from [place] for abdominal pain and a CT scan had revealed multiple pelvic abscesses with mild right hydronephrosis. She denies any flank pain or hematuria. There is no history of recurrent urinary tract infections. PAST MEDICAL HISTORY: Significant for: 1. Anxiety. 2. Gastroesophageal reflux. 3. Migraines. 4. Depression. 5. History of SI joint dysfunction. MEDICATIONS: On admission include: 1. Cyclobenzaprine 10 mg daily. 2. Aspirin 325 mg daily. 3. Oxycodone p.r.n. 4. Baclofen 3 times a day 1 tablet. 5. Omeprazole 20 mg b.i.d. 6. Albuterol aerosol 2 puffs as needed every 4 hours. 7. Hydrochlorothiazide 12.5 mg once a day. 8. Bactrim 1 tablet twice a day. 9. Xanax 0.5 mg 1 tablet p.r.n. 3 times a day. 10. Lasix 40 mg daily. ALLERGIES: PENICILLIN, LEVAQUIN, NONSTEROIDAL ANTIINFLAMMATORY MEDICATIONS. PHYSICAL EXAM: Reveals a pleasant, overweight lady. Blood pressure is 130/84, pulse 87 per minute, temperature 98.1. She denies any flank pain or any urinary symptoms. DIAGNOSTIC STUDIES/LAB DATA: Review of the labs reveals a BUN of 6 and a creatinine of 1.0. Urinalysis is negative with no blood or bacteria noted. I reviewed the CT scan which reveals findings consistent with diverticulitis abscess and pelvic abscess with mild fullness of the right collecting system. IMPRESSION AND PLAN: I discussed the situation in detail with Ms. Aguero. I will be available for stent insertion and depending on the surgeon's preference , could place either a right ureteral stent or bilateral stents since the primary problem is on the left side and happens to have tracked over to the right side. CC: Dr. Wood; Dr. Daquan Javier * [id number]/[facility] #: [id number] [facility]
--- NOTE | 2016-06-29 12:07 | CONS ---
SURGICAL CONSULTATION DATE OF CONSULT: 06/29/2016 at 0930. This patient is located in room 353 at [facility]. CHIEF COMPLAINT: Abdominal pain, diverticulitis with abscesses. HISTORY OF PRESENT ILLNESS: The patient is a 60-year-old female admitted to [facility] 0 06/21 through 06/26/2016 for suspected diverticulitis treated with Metronidazole and Ceftriaxone. Lara tello was discharged on 06/26/2016 after being afebrile for 48 hours with decreasing pain, but had eleva gema WBC's on five days of antibiotics. She does have ALLERGIES TO PENICILLIN AND QUINOLONES. She s tates that her pain and nausea began to increase within the first 24 hours of discharge, prompting h er to call her primary care provider and be evaluated. From there, she was sent to the [facility] Department where repeat CT abdomen revealed progression of sigmoid diverticulitis with multip le pelvic abscesses, one of which is impinging the right ureter resulting in mild hydronephrosis. S he states that she has had watery to loose bowel movements with the last one being this morning. Yaz or to that, she states that she had not passed stool or flatus for about nine days. Her appetite enrique s been very diminished. She denies any dysuria. She had not noticed any blood in her urine or stoo l. She was admitted by the Hospitalist service last evening and Dr. Lemus was notified and plans w ere made for Surgical consultation this morning. Currently, she reports her abdominal pain rated at 6 and is in both left and right lower quadrants and the suprapubic region. She denies any current nausea. She is currently afebrile. She is currently on Meropenem IV antibiotic. She is requiring narcotic pain medication approximately every two to three hours. PAST MEDICAL HISTORY: Significant for acute diverticulitis, failed outpatient treatment, chronic lo w back pain, morbid obesity, anxiety, possible TIA February 2012 when she was admitted to [facility]. PAST SURGICAL HISTORY: Open appendectomy many years ago. MEDICATIONS AT HOME: 1. Alprazolam 0.5 mg p.o. t.i.d. prn. 2. Baclofen 10 mg p.o. t.i.d. 3. Oxycodone 15 mg p.o. q.4 prn. 4. Metronidazole 500 mg p.o. t.i.d. 5. Cefpodoxime 200 mg p.o. t.i.d. 6. Senna Docusate one tablet p.o. daily. ALLERGIES: LEVOFLOXACIN CAUSED HIVES; PENICILLIN ALLERGY, UNSPECIFIED REACTION; IBUPROFEN CAUSES NA USEA AND VOMITING; SHE IS ALLERGIC TO BEE STINGS. FAMILY HISTORY: Reviewed and noncontributory to present situation. SOCIAL HISTORY: She is . 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 She smokes a pack of cigarettes d aily and has greater than a 30 pack year history. She occasionally drinks alcohol and denies the us e of other substances. REVIEW OF SYSTEMS: She denies any chest pain, palpitations or shortness of breath. She denies any h istory of deep vein thrombosis or pulmonary embolism. She denies any respiratory conditions or comp laints. She denies any previous anesthesia reactions. She denies any bleeding tendencies and has n ever received a blood transfusion. She reports that in February of 2012, she was admitted to [facility] with symptoms of confusion and slurred speech, and was diagnosed with a possible mi ni stroke and had a neurologic consult by Dr. Chambers, and was sent home on baby aspirin at that [facility]. There has been no recurrence. Please refer to [facility] for further information on that admissi on. She has had no recurrence of confusion or slurred speech or other neurological symptoms, but st ates that she does experience some short-term memory loss at times. She denies any current nausea o r vomiting. She had a watery brown stool this morning. She is passing minimal flatus. She denies any dysuria and has voided 300 ml since 7:00 a.m. today. She reports that her last menstrual period was at age 44. PHYSICAL EXAM: General: The patient is a 60-year-old, morbidly obese female in no acute distress. Vital Signs: Temperature 98.5, heart rate 83, respiratory rate 16, blood pressure 122/47, O2 satur ation 97 percent on room air. HEENT: Benign. Neck: Supple. No cervical lymphadenopathy. Back: No CVA tenderness. Lungs: Breath sounds bilaterally clear. Good aeration. No accessory muscle use . Heart: Regular rate and rhythm. No murmurs, rubs or gallops. Abdomen: Diminished bowel sounds, obese, soft, nondistended, moderately tender in the suprapubic region, left lower quadrant and righ t lower quadrant with voluntary guarding, but no rigidity. Mild rebound tenderness. No obvious mass es. Well-healed surgical scar right lower quadrant, status post open appendectomy. Pelvic and rect al exams deferred. Extremities: No edema, no skin ulcerations. 2+ palpable dorsalis pedis pulses b ilaterally. Musculoskeletal: Gait is stable. Neurologic: Alert and oriented times three. IMPRESSION: Sigmoid diverticulitis with multiple pelvic abscesses. PLAN: Continue NPO status, maintain IV fluids, continue IV antibiotics, continue pain management an d further surgical planning will be by Dr. Rojas; Dr. Wood consulted from Urology for possible ur eteral stent placement during surgery. SUSSY CUNNINGHAM, BODY ENGINEER [id number]/[facility] #: [id number]
[2016-06-29] MEDS ORDERED: Ondansetron INJ* 2 MG/ML VIAL ONE (14:28)
[2016-06-29] MEDS ORDERED: EPHEDrine (Pressors)* 50 MG/ML VIAL ONE (14:28)
[2016-06-29] MEDS ORDERED: Lidocaine 2% MPF* 2 ML VIAL ONE (14:28)
[2016-06-29] MEDS ORDERED: Atracurium* 10 MG/ML 10 ML VIAL ONE ×2 (14:28→16:42)
[2016-06-29] MEDS ORDERED: Midazolam* 1 MG/ML 5 ML VIAL (5 MG) ONE (14:28)
[2016-06-29] MEDS ORDERED: Propofol* 10 MG/ML 20 ML BTL IV PUSH ONE (14:28)
[2016-06-29] MEDS ORDERED: fentaNYL* 50 MCG/ML 5 ML VIAL (250 MCG VIAL) ONE (14:28)
[2016-06-29] MEDS ORDERED: fentaNYL* 50 MCG/ML 2 ML VIAL (100 MCG VIAL) ONE ×7 (15:21→19:50)
[2016-06-29] MEDS ORDERED: Ondansetron INJ* 2 MG/ML VIAL IV PRN (16:03)
[2016-06-29] MEDS ORDERED: Iohexol 180 (CONTRAST) 10 ML SDV IV ONE (18:12)
[2016-06-29] MEDS ORDERED: Gentamicin ADULT (*) 40 MG/ML VIAL ONE (18:12)
--- NOTE | 2016-06-29 18:37 | SURGPN ---
Brief Operative Note - Surgery Procedures: PREOP DX: DIVERTICULITIS WITH INTRAABDOMINAL ABSCESSES POSTOP DX: SAME PROC: MYA PROCEDURE WITH DRAINAGE OF ABSCESSES SURG: MECENAS ASSIST: KAREN BLANCAS: MYRNA; IKE EBL: 200ML IVF: 2L LR SPEC: 1) ABSCESS FLUID FOR C&S 2) SIGMOID COLON DRAIN: THIAGO IN PELVIS COMPL: NONE COND: STABLE TO RR, EXTUBATED.
[2016-06-29] MEDS ORDERED: HYDROmorphone INJ* 1 MG/ML CARPUJECT SYRINGE ONE (18:57)
[2016-06-29] MEDS: fentaNYL* 50 MCG/ML 2 ML VIAL (100 MCG VIAL) IV PRN ×5 (18:57→19:52)
[2016-06-29] MEDS ORDERED: HYDROmorphone PCA* 20 MG/20 ML PCA.SYRING ONE (19:01)
[2016-06-29] MEDS: HYDROmorphone PCA* 20 MG/20 ML PCA.SYRING PCA SCH (19:07)
--- NOTE | 2016-06-29 19:07 | RAD ---
INDICATION: RIGHT ureteral stent placement. Sigmoid diverticulitis with abscess. COMPARISON: June 28, 2016 CT. TECHNIQUE: 7 seconds fluoroscopy. FINDINGS: Spot images document RIGHT retrograde pyelogram with mild caliectasis. RIGHT ureteral stent placed with decompression of the collecting system. Infra umbilical midline surgical talat and surgical drain noted. IMPRESSION: Procedural fluoroscopy. CPT II Codes: 6045F
[2016-06-30] MEDS: Albuterol 2.5 MG/3 ML NEB.SOL* (0.083%) INH SCH (02:01)
[2016-06-30] MEDS: Nicotine Patch Removal NOTE PATCH OFF SCH ×2 (03:04→22:53)
[2016-06-30] MEDS: Meropenem 1 GM PREMIX(*) 1 GM/50 ML BAG IV SCH ×3 (03:12→18:05)
--- NOTE | 2016-06-30 04:25 | OP ---
CC: Binh Mary, [facility] OPERATIVE REPORT: DATE OF OPERATION: 06/29/16 DATE OF : 59 SURGEON: Kamron Rojas MD BOOSTER PUMP OILER: 1. assistant plant manager: Osito Anderson MD 2. Second office assistant: KARLO Núñez ANESTHESIOLOGIST: Dr. Echols. ANESTHESIA: General endotracheal. PRE-OP DIAGNOSIS: Acute diverticulitis with intraperitoneal abscesses. POST-OP DIAGNOSIS: Acute diverticulitis with intraperitoneal abscesses. OPERATIVE PROCEDURE: Laparotomy, lysis of adhesions, drainage of intraabdominal abscesses, sigmoid colectomy with end colostomy, and Thierno pouch. ESTIMATED BLOOD LOSS: 200 mL. IV FLUIDS: 2.9 L of crystalloid. SPECIMENS: 1. Abscess fluid for culture sensitivity. 2. Sigmoid colon. DRAINS: 10-mm Zachery-Jaimes in the pelvis. COMPLICATIONS: None. COUNTS: The instruments, needle, and sponge counts were correct. DESCRIPTION OF PROCEDURE: The patient was brought to the operating room and placed on the table supine. Sequential compression devices were placed on both lower extremities. General anesthesia was administered. A Reeder catheter was placed. She was positioned and padded appropriately. Time-out was performed. A midline laparotomy was undertaken from above the umbilicus to the pubic symphysis. Peritoneal cavity was entered below the umbilicus and then the peritoneum was opened to full length of the incision. The patient had a large 10- cm deep abdominal wall infraumbilically. The retractors were placed and small bowel appeared to be adherent down to the pelvis. Mobilization preceded with gentle upward traction and finger dissection. Immediately toward the left side, a pocket of pus was entered. This was cultured and then irrigated and there was noted to be a dense mass of inflamed bowel within the pelvis. This involved both large and small bowel. Inspecting the right side, the cecum was evident. It did not appear to be involved in the inflammatory process, but there was a loop of the ileum that was drawn down into this mass and this was mobilized, again using blunt dissection and additional abscesses were encountered. This one more towards the right side and there appeared to be feculent material within it. The dissection proceeded further into the pelvis in order to free all of the bowel in this area and two additional abscesses were encountered including a very large abscess anterior to the rectum. The colon was redundant upon itself this area and in order to aid in dissection, Bookwalter retractor was placed. There appeared to be an inflamed and dilated left salpinx adhered to the mass as well. This was dissected free. There were some bleeding from this, so the bleeding was controlled with a 3-0 silk suture ligature. In order to completely free the sigmoid from the pelvis, it was felt best to divide the large bowel proximally. First after positioning the small bowel in the upper abdomen with a retractor, the colon was inspected at the descending site and within the area of normal-appearing colon, the bowel was divided between 2 TA 60 staple lines. The LigaSure was then used to undercut the mesentery staying close to the bowel wall and proceeding distally. Incremental division of the mesentery was performed down to the top of the rectum or distal sigmoid. The pericolonic fat was extremely inflamed in these areas. Ultimately, it was decided to divide the bowel with a TA 60 stapler and this was done after trying to create a window through the mesentery. The bowel was divided, any remaining attachments in the mesentery were divided with a LigaSure, then the specimen was handed off. Irrigation was performed in the pelvis. Hemostasis appeared to be adequate. The small bowel was run from the ileocecal valve proximally and the involved areas and small bowel did not appear to have any injury. The proximal small bowel was completely normal. For the colostomy, the descending colon had to be fully mobilized including a takedown of the splenic flexure. For this maneuver, because of the patient's large size with a BMI over 40 and difficulties in visualization, I required a second office assistant for this portion of the case. The colon was mobilized along the line of Toldt and after freeing the attachments at the splenic flexure, the bowel appeared to be adequately mobilized to create the colostomy in the left side of the abdomen. The aperture was created through the lateral portion of the rectus muscle and accommodated 2 fingers. The bowel was brought up through this. It was assured that there was no tension on the bowel. After copious lavage of the abdomen, omentum was freed and placed beneath the wound, which was closed with #1 Polysorb running. The colostomy was then matured with 4-0 Polysorb. The midline wound was partially closed with talat and then packed in between. The ostomy appliance was placed and dressings were placed. The patient tolerated the procedure well. At this time, the patient's care was turned over to Dr. Wood who performed cystoscopy and stent placement and this is dictated separately in his note. [id number] #: [id number] JUSTINA
[2016-06-30] MEDS: Heparin VIAL(*) 5000 UNITS/ML VIAL (FIVE THOUSAND) SUBCUT SCH ×3 (05:50→22:48)
[2016-06-30] MEDS: Pantoprazole IV* 40 MG IV SCH (08:16)
[2016-06-30 08:21] LABS: Hematocrit 34 % (35-47); Mean Corpuscular HGB Conc 33 g/dl (31-36); Mean Corpuscular Hemoglobin 29 pg (27-31); Mean Corpuscular Volume 88 fL (80-97); Mean Platelet Volume 8 um3 (7.4-10.4); Red Blood Count 3.87 10^6/ul (4.0-5.4); Red Cell Distribution Width 15 % (10.5-15); White Blood Count 15.2 10^3/ul (3.5-10.8)
[2016-06-30] MEDS: Ondansetron INJ* 2 MG/ML VIAL IV PRN (08:31)
[2016-06-30] MEDS: HYDROmorphone PCA* 20 MG/20 ML PCA.SYRING PCA SCH (08:33)
--- NOTE | 2016-06-30 08:49 | PN ---
Progress Note - Progress Note SOAP: Subjective: C/o pain and nausea. No emesis. Discussed findings at surgery. Objective: Vital Signs Temp 98.3 F 06/30/16 07:24 Pulse 82 06/30/16 07:24 Resp 16 06/30/16 08:33 BP 120/69 06/30/16 07:24 Pulse Ox 93 06/30/16 07:24 Intake & Output 06/29/16 06/30/16 06/30/16 18:59 06:59 18:59 Intake Total 2977 288 Output Total 1850 875 615 Balance 1127 -587 -615 Intake: IV Fluids 2920 235 LR 1600 235 NS (0.9%) 320 NS Bolus 1000 IVPB 57 53 NS (0.9%) 57 meropenem 53 Oral 0 Output: THIAGO #1 225 15 Urine 650 Meek 1200 650 600 Colostomy 0 Other: Date of Last Bowel 06/29/16 Movement Appears in mod discomfort. Abd: dressings c/d/i; ostomy pink; THIAGO ss; tender throughout. Laboratory Results - last 24 hr 06/30/16 07:34 WBC 15.2 H RBC 3.87 L Hgb 11.0 L Hct 34 L MCV 88 MCH 29 MCHC 33 RDW 15 Plt Count 486 H MPV 8 Neut % (Auto) 80.8 Lymph % (Auto) 12.4 L Rock % (Auto) 6.0 Eos % (Auto) 0.4 Baso % (Auto) 0.4 Absolute Neuts (auto) 12.3 H Absolute Lymphs (auto) 1.9 Absolute Monos (auto) 0.9 H Absolute Eos (auto) 0.1 Absolute Basos (auto) 0.1 Absolute Nucleated RBC 0 Nucleated RBC % 0 Microbiology 06/29/16 01:00 Aerobic Blood Culture - Preliminary Blood Venous No Growth Day 1 Anaerobic Blood Culture - Preliminary No Growth Day 1 06/29/16 00:50 Aerobic Blood Culture - Preliminary Blood Venous No Growth Day 1 Anaerobic Blood Culture - Preliminary No Growth Day 1 06/29/16 15:29 Gram Stain - Final Wound 4+neutrophils/no bacteria Assessment:POD#0-1 s/p Thierno; drainage of abscesses. Needs better pain control. Plan: Cont TECHNICAL SUPPORT ANALYST/abx/THIAGO/meek. Clears. Check lytes. Ambulate. SACMA to cover me until Saturday.
--- NOTE | 2016-06-30 09:41 | PN ---
Subjective Date of Service: 06/30/16 Interval History: . Interviewed and examined patient at bedside; Discussed case with Dr. Elder and Dr. Rojas ; Reviewed previous notes and radiology results; I first saw patient with yesterday, mid-day, before surgery last night. We discussed likely need for colostomy though I deferred to surgical team for definitive details. I acknowledged that pain control would be challenging as a result of chronic opiate use. We discussed natural history of diverticulitis and how, in some cases, progression and perforation occurs. In those (these) circumstances, surgery is necessary, as it is now. No further questions at the conclusion of that discussion -- I wished her a safe surgery and she appreciated that. This AM, patient post-op - saw in room 353. 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 Patient NPO - surgery team will direct diet advancement. Plan to mobilize today. Patient dejected by current situation--> I offered encouragement that she seems to be heading in hte right direction and that today's labs were encouraging. Family History: Unchanged from Admission Social History: Unchanged from Admission Past Medical History: Unchanged from Admission Objective Active Medications: . Acetaminophen (Tylenol Supp*) 650 mg VT Q6H PRN PRN Reason: FEVER/PAIN Heparin Sodium (Porcine) (Heparin Vial(*)) 5,000 units SUBCUT Q8HR [facility] Last Admin: 06/30/16 05:50 Dose: 5,000 units Meropenem (Merrem 1 Gm Premix(*)) 1 gm in 50 mls @ 100 mls/hr IV Q8H [facility] Last Admin: 06/30/16 03:12 Dose: 100 mls/hr Hydromorphone HCl (Dilaudid Battery Builder*) 20 mg in 20 mls @ 0 mls/hr TICKET MACHINE OPERATOR .change Q24H GENA; Per Protocol PRN Reason: Protocol Last Admin: 06/30/16 08:33 Dose: 1 mls/hr Lactated Ringer's (Lactated Ringers 1000 Ml Bag*) 1,000 mls @ 175 mls/hr IV PER RATE [facility] Last Admin: 06/30/16 08:18 Dose: 175 mls/hr Nicotine (Nicotine Patch 21 Mg/24 Hr*) 1 patch TRANSDERM Q24H PRN PRN Reason: CRAVING Ondansetron HCl (Zofran Inj*) 4 mg IV Q6H PRN PRN Reason: NAUSEA Last Admin: 06/30/16 08:31 Dose: 4 mg Pantoprazole Sodium (Protonix Iv*) 40 mg IV 0730 [facility] Last Admin: 06/30/16 08:16 Dose: 40 mg Pharmacy Profile Note (Nicotine Patch Removal Note*) 1 note PATCH OFF 2100 [facility] Last Admin: 06/30/16 03:04 Dose: Not Given Prochlorperazine Edisylate (Compazine Inj*) 10 mg IV Q6H PRN PRN Reason: NAUSEA . Vital Signs 06/29/16 06/29/16 06/29/16 10:47 11:41 11:47 Temperature 99.1 F Pulse Rate 81 Respiratory 20 22 10 Rate Blood Pressure 128/69 (mmHg) O2 Sat by Pulse 97 Oximetry 06/29/16 06/29/16 06/29/16 12:21 18:36 18:40 Temperature 97.9 F Pulse Rate 86 79 Respiratory 10 16 16 Rate Blood Pressure 135/76 106/88 (mmHg) O2 Sat by Pulse 98 94 Oximetry full list reviewed. . Oxygen Devices in Use Now: Nasal Cannula Appearance: NAD - sleeping, but awakened Eyes: No Scleral Icterus Ears/Nose/Mouth/Throat: Clear Oropharnyx Neck: Trachea Midline Respiratory: Symmetrical Chest Expansion and Respiratory Effort Cardiovascular: NL Sounds; No Murmurs; No JVD Abdominal: - - dressing in place. Appropriate post-op pain on palapation. Lymphatic: No Cervical Adenopathy Extremities: No Edema Neurological: Alert and Oriented x 3 Lines/Tubes/Other Access: Clean, Dry and Intact Peripheral IV Nutrition: - - NPO Result Diagrams: 06/30/16 07:34 06/29/16 07:20 Microbiology and Other Data: Microbiology 06/29/16 01:00 Aerobic Blood Culture - Preliminary Blood Venous No Growth Day 1 Anaerobic Blood Culture - Preliminary No Growth Day 1 06/29/16 00:50 Aerobic Blood Culture - Preliminary Blood Venous No Growth Day 1 Anaerobic Blood Culture - Preliminary No Growth Day 1 06/29/16 15:29 Gram Stain - Final Wound Assess/Plan/Problems-Billing . Assessment: 60 yo female with perforated diverticulitis and abdominal abscesses necessitating surgery -- resection of infected colon with colostomy (dickens's procedure). Dual requirement of ureteral stenting secondary to obstructive effect of abscess/infection. Current Medications: - Acetaminophen (Tylenol Supp) 650 mg VT Q6H PRN FEVER/PAIN - Heparin SQ 5,000 units SUBCUT Q8HR - Meropenem 1 gm IV Q8H - Hydromorphone HCl (Dilaudid Battery Builder) Per Protocol 1 mls/hr - Lactated Ringer's (Lactated Ringers 1000 Ml Bag) 1,000 mls @ 175 mls/hr - Nicotine (Nicotine Patch 21 Mg) 1 patch Q24H PRN CRAVING - Ondansetron HCl (Zofran Inj) 4 mg IV Q6H PRN NAUSEA - Pantoprazole 40 mg IV Daily - Prochlorperazine Edisylate (Compazine Inj) 10 mg IV Q6H PRN NAUSEA . - Patient Problems (1) Abdominal abscess Current Visit: Yes Status: Acute Priority: High Code(s): K65.1 - PERITONEAL ABSCESS Comment: - Secondary to diverticulitis - PCN/Fluroquinolone allergy ==> meropenem ongoing - Add flagyl. (2) Diverticulitis of colon with perforation Current Visit: Yes Status: Acute Priority: High Code(s): K57.20 - DVTRCLI OF LG INT W PERFORATION AND ABSCESS W/O BLEEDING Comment: - Occurence despite appropriate outpatient treatment with antibiotics - Surgical correction (resection/colostomy) necessary --> done. - Continue antibiotics. - Pain control (3) Ureteral obstruction Current Visit: Yes Status: Acute Priority: High Code(s): N13.5 - CROSSING VESSEL AND STRICTURE OF URETER W/O HYDRONEPHROSIS Comment: - s/p ureteral stenting by urology (thank you) - follow Creatinine (4) Abdominal pain Current Visit: No Status: Acute Priority: High Code(s): R10.9 - UNSPECIFIED ABDOMINAL PAIN Comment: - Attributable to diverticulitis and other reasons cited in this document. - Pain control with dilaudid TICKET MACHINE OPERATOR - [place] to opiates 2/2 chronic use noted (5) Anxiety Current Visit: No Status: Chronic Priority: High Code(s): F41.9 - ANXIETY DISORDER, UNSPECIFIED Comment: - PRN alprazolam and supportive care. - (prn iv ativan while NPO) (6) Chronic back pain Current Visit: No Status: Acute Priority: Medium Code(s): M54.9 - DORSALGIA, UNSPECIFIED; G89.29 - OTHER CHRONIC PAIN Comment: - Current treatment will cover this - Goal is to reduce regimen to usual outpatient regimen (7) Severe protein-calorie malnutrition Current Visit: Yes Status: Acute Priority: High Code(s): E43 - UNSPECIFIED SEVERE PROTEIN-CALORIE MALNUTRITION Comment: - albumin <= 2.5 - pre-albumin 6 - No oral intake - D/W surgery about PPN/TPN --> goal to start tomorrow. - Advance diet as quickly as possible within bounds of safety
[2016-06-30] MEDS: metroNIDAZOLE IV 500 MG/100ML* 500 MG/100 ML BAG IVPB SCH ×2 (11:15→22:50)
[2016-06-30] MEDS: LORazepam INJ* 2 MG/ML 1 ML VIAL IV PUSH PRN ×2 (11:24→18:12)
[2016-06-30 12:18] LABS: Albumin 2.2 g/dL (3.2-5.2); BUN/Creatinine Ratio 5.8 (8-20); Calcium 7.9 mg/dL (8.6-10.3); EGFR African American 112.4 (>60); EGFR Non-African American 87.4 (>60); Globulin 2.5 g/dL (2-4); Potassium 4.2 mmol/L (3.5-5.0); Total Bilirubin 0.3 mg/dL (0.2-1.0); Total Protein 4.7 g/dL (6.4-8.9)
[2016-07-01] MEDS: Meropenem 1 GM PREMIX(*) 1 GM/50 ML BAG IV SCH ×3 (01:50→18:24)
[2016-07-01] MEDS: Heparin VIAL(*) 5000 UNITS/ML VIAL (FIVE THOUSAND) SUBCUT SCH ×3 (06:18→22:17)
[2016-07-01 06:51] LABS: Comments Flag Yes; Hematocrit 32 % (35-47); Hemoglobin 10.4 g/dl (12.0-16.0); Mean Corpuscular HGB Conc 33 g/dl (31-36); Mean Corpuscular Hemoglobin 29 pg (27-31); Mean Corpuscular Volume 88 fL (80-97); Red Cell Distribution Width 15 % (10.5-15); White Blood Count 16.9 10^3/ul (3.5-10.8)
[2016-07-01 06:52] LABS: Add Diff/Slide Review? Slide Review Added
[2016-07-01] MEDS: LORazepam INJ* 2 MG/ML 1 ML VIAL IV PUSH PRN ×2 (07:10→22:12)
[2016-07-01] MEDS: Pantoprazole IV* 40 MG IV SCH (07:59)
[2016-07-01 08:13] LABS: BUN/Creatinine Ratio 6.7 (8-20); Blood Urea Nitrogen 4 mg/dL (6-24); CO2 Carbon Dioxide 25 mmol/L (22-32); Calcium 7.8 mg/dL (8.6-10.3); Chloride 101 mmol/L (101-111); EGFR African American 132.1 (>60); EGFR Non-African American 102.7 (>60); Glucose 80 mg/dL (70-100); Sodium 135 mmol/L (133-145)
[2016-07-01] MEDS: Ondansetron INJ* 2 MG/ML VIAL IV PRN (09:55)
--- NOTE | 2016-07-01 11:05 | PN ---
Progress Note - Progress Note SOAP: Subjective: Pt seen and examined. Pos nausea, but wants food. Tolerating clears. OOB. Objective: af vss Uo good lungs clear b/l abdo: soft/ obese, tender w/o rebound packing at midline wound changed; no redness THIAGO serous Ostomy : pink edematous, min output, no gas no calf tenderness Labs noted Assessment: POD2 Thierno's, HD stable Plan: clears only change IVF d/c meek wound care OOB, IS Dvt, GI proph
[2016-07-01] MEDS: D5W 1/2 NS 1000 ML BAG* 1,000 ML IV SCH (11:36)
[2016-07-01] MEDS: metroNIDAZOLE IV 500 MG/100ML* 500 MG/100 ML BAG IVPB SCH ×2 (11:37→23:14)
--- NOTE | 2016-07-01 14:04 | PN ---
Subjective Date of Service: 07/01/16 Interval History: . Saw patient this AM Discussed case with Osito Anderson MD no new complaints oob yesterday -- plan again today clear liquids tolerated well seems a bit down about current illness -- understandable. denies CP/SOB offered encouragement. prn ativan helps with anxiety Dilaudid PHILOSOPHY INSTRUCTOR effective for pain Family History: Unchanged from Admission Social History: Unchanged from Admission Past Medical History: Unchanged from Admission Objective Active Medications: . Acetaminophen (Tylenol Supp*) 650 mg ID Q6H PRN PRN Reason: FEVER/PAIN Alprazolam (Xanax Tab*) 0.5 mg PO TID PRN PRN Reason: ANXIETY Heparin Sodium (Porcine) (Heparin Vial(*)) 5,000 units SUBCUT Q8HR [facility] Last Admin: 07/01/16 06:18 Dose: 5,000 units Meropenem (Merrem 1 Gm Premix(*)) 1 gm in 50 mls @ 100 mls/hr IV Q8H [facility] Last Admin: 07/01/16 09:57 Dose: 100 mls/hr Hydromorphone HCl (Dilaudid Credit Reference Clerk*) 20 mg in 20 mls @ 0 mls/hr PHILOSOPHY INSTRUCTOR .change Q24H [facility]; Per Protocol PRN Reason: Protocol Last Admin: 06/30/16 08:33 Dose: 1 mls/hr Lactated Ringer's (Lactated Ringers 1000 Ml Bag*) 1,000 mls @ 175 mls/hr IV PER RATE [facility] Last Admin: 07/01/16 08:07 Dose: 175 mls/hr Metronidazole/Sodium Chloride (Flagyl 500 Mg Ivpb*) 500 mg in 100 mls @ 100 mls /hr IVPB Q12H [facility] Last Admin: 07/01/16 11:37 Dose: 100 mls/hr Dextrose/Sodium Chloride (D5w 1/2 Ns 1000 Ml Bag*) 1,000 mls @ 75 mls/hr IV PER RATE [facility] Last Admin: 07/01/16 11:36 Dose: 75 mls/hr Lorazepam (Ativan Inj*) 0.5 mg IV PUSH Q6H PRN PRN Reason: ANXIETY Last Admin: 07/01/16 07:10 Dose: 0.5 mg Nicotine (Nicotine Patch 21 Mg/24 Hr*) 1 patch TRANSDERM Q24H PRN PRN Reason: CRAVING Ondansetron HCl (Zofran Inj*) 4 mg IV Q6H PRN PRN Reason: NAUSEA Last Admin: 07/01/16 09:55 Dose: 4 mg Pantoprazole Sodium (Protonix Iv*) 40 mg IV 0730 [facility] Last Admin: 07/01/16 07:59 Dose: 40 mg Pharmacy Profile Note (Nicotine Patch Removal Note*) 1 note PATCH OFF 2100 [facility] Last Admin: 06/30/16 22:53 Dose: Not Given Prochlorperazine Edisylate (Compazine Inj*) 10 mg IV Q6H PRN PRN Reason: NAUSEA . Vital Signs 06/30/16 06/30/16 06/30/16 14:00 16:08 16:15 Temperature 99.0 F Pulse Rate 91 Respiratory 17 16 14 Rate Blood Pressure 128/63 (mmHg) O2 Sat by Pulse 94 95 97 Oximetry 06/30/16 06/30/16 06/30/16 18:10 18:11 18:12 Temperature 98.4 F Pulse Rate Respiratory 16 16 Rate Blood Pressure (mmHg) O2 Sat by Pulse 97 Oximetry Oxygen Devices in Use Now: Nasal Cannula Appearance: appears stated age. NAD now Eyes: No Scleral Icterus Ears/Nose/Mouth/Throat: Clear Oropharnyx Neck: NL Appearance and Movements; NL JVP, Trachea Midline Respiratory: Symmetrical Chest Expansion and Respiratory Effort Cardiovascular: NL Sounds; No Murmurs; No JVD Abdominal: - - colostomy observed - as expected - appropriate surrounding tenderness Lymphatic: No Cervical Adenopathy Extremities: No Edema Skin: No Rash or Ulcers Neurological: Alert and Oriented x 3 Lines/Tubes/Other Access: Clean, Dry and Intact Peripheral IV Nutrition: Taking PO's - clears now Result Diagrams: 07/01/16 06:17 07/01/16 12:08 Microbiology and Other Data: Microbiology 06/29/16 01:00 Aerobic Blood Culture - Preliminary Blood Venous No Growth Day 1 Anaerobic Blood Culture - Preliminary No Growth Day 1 06/29/16 00:50 Aerobic Blood Culture - Preliminary Blood Venous No Growth Day 1 Anaerobic Blood Culture - Preliminary No Growth Day 1 06/29/16 15:29 Gram Stain - Final Wound Assess/Plan/Problems-Billing . Assessment: 60 yo female with perforated diverticulitis and abdominal abscesses necessitating surgery -- resection of infected colon with colostomy (dickens's procedure). Dual requirement of ureteral stenting secondary to obstructive effect of abscess/infection. Current Medications: - Acetaminophen (Tylenol Supp) 650 mg ID Q6H PRN FEVER/PAIN - Heparin SQ 5,000 units SUBCUT Q8HR - Meropenem 1 gm IV Q8H - Hydromorphone HCl (Dilaudid Credit Reference Clerk) Per Protocol 1 mls/hr - D5w 1/2 NS @ 75 mls/hr - Nicotine (Nicotine Patch 21 Mg) 1 patch Q24H PRN CRAVING - Ondansetron HCl (Zofran Inj) 4 mg IV Q6H PRN NAUSEA - Pantoprazole 40 mg IV Daily - Prochlorperazine Edisylate (Compazine Inj) 10 mg IV Q6H PRN NAUSEA . - Patient Problems (1) Abdominal abscess Current Visit: Yes Status: Acute Priority: High Code(s): K65.1 - PERITONEAL ABSCESS Comment: - Secondary to diverticulitis - PCN/Fluroquinolone allergy ==> meropenem ongoing - Flagyl too (2) Diverticulitis of colon with perforation Current Visit: Yes Status: Acute Priority: High Code(s): K57.20 - DVTRCLI OF LG INT W PERFORATION AND ABSCESS W/O BLEEDING Comment: - Occurence despite appropriate outpatient treatment with antibiotics - Surgical correction (resection/colostomy) necessary --> done. - Continue antibiotics. - Pain control - dilaudid PHILOSOPHY INSTRUCTOR (3) Ureteral obstruction Current Visit: Yes Status: Acute Priority: High Code(s): N13.5 - CROSSING VESSEL AND STRICTURE OF URETER W/O HYDRONEPHROSIS Comment: - s/p ureteral stenting by urology (thank you) - follow Creatinine (4) Abdominal pain Current Visit: No Status: Acute Priority: High Code(s): R10.9 - UNSPECIFIED ABDOMINAL PAIN Comment: - Attributable to diverticulitis and other reasons cited in this document. - Pain control with dilaudid PHILOSOPHY INSTRUCTOR - [place] to opiates 2/2 chronic use noted (5) Anxiety Current Visit: No Status: Chronic Priority: High Code(s): F41.9 - ANXIETY DISORDER, UNSPECIFIED Comment: - PRN alprazolam and supportive care. - (prn iv ativan while NPO) (6) Chronic back pain Current Visit: No Status: Acute Priority: Medium Code(s): M54.9 - DORSALGIA, UNSPECIFIED; G89.29 - OTHER CHRONIC PAIN Comment: - Current treatment will cover this - Goal is to reduce regimen to usual outpatient regimen (7) Severe protein-calorie malnutrition Current Visit: Yes Status: Acute Priority: High Code(s): E43 - UNSPECIFIED SEVERE PROTEIN-CALORIE MALNUTRITION Comment: - albumin <= 2.5 - pre-albumin 6 - No oral intake - advancing diet as per surgery - Advance diet as quickly as possible within bounds of safety
[2016-07-01] MEDS: ALPRAZolam TAB* 0.5 MG PO PRN (14:38)
[2016-07-01] MEDS: Nicotine Patch Removal NOTE PATCH OFF SCH (22:22)
[2016-07-02] MEDS: Meropenem 1 GM PREMIX(*) 1 GM/50 ML BAG IV SCH ×2 (02:11→10:30)
[2016-07-02] MEDS: D5W 1/2 NS 1000 ML BAG* 1,000 ML IV SCH ×2 (03:55→19:30)
[2016-07-02] MEDS: HYDROmorphone PCA* 20 MG/20 ML PCA.SYRING PCA SCH (05:32)
[2016-07-02] MEDS: Heparin VIAL(*) 5000 UNITS/ML VIAL (FIVE THOUSAND) SUBCUT SCH ×3 (06:04→22:46)
[2016-07-02] MEDS: ALPRAZolam TAB* 0.5 MG PO PRN (06:08)
[2016-07-02] MEDS: Pantoprazole IV* 40 MG IV SCH (08:54)
--- NOTE | 2016-07-02 10:49 | PN ---
Progress Note - Progress Note SOAP: Subjective: []awake,alert,feels"wiped out";walked this morning;not hungry,taking some clears ;using inspiron Objective: []lungs clear bilat,decreased at bases;heart RRR,no m/r;abd:colostomy with light brown liquid,stoma pink;incision with alternating 1/4 plain nugauze pkg and talat;wound probed and new packing placed;THIAGO drain intact,exit site clean, milked,drainage serosang;extremities:nontender,no edema Vital Signs Temp 98.4 F 07/02/16 07:30 Pulse 80 07/02/16 07:30 Resp 16 07/02/16 10:00 BP 120/58 07/02/16 07:30 Pulse Ox 94 07/02/16 10:00 Intake & Output 07/01/16 07/02/16 07/02/16 18:59 06:59 18:59 Intake Total 1984 1594 120 Output Total 1868 1745 350 Balance 116 -151 -230 Intake: IV Fluids 1604 942 D5W 1/2 NS 942 LR 1494 meropenem 110 IVPB 252 ABX - FLAGYL 142 meropenem 110 Oral 380 400 120 Output: THIAGO #1 13 8 Urine 350 Reeder 1825 1700 Colostomy 30 37 Assessment:POD#3 s/p Thierno's,tolerating clears,walking with encouragement; feeling down today [] Plan:continue clears,IVF,IV abx;push inspiron and ambulation;added Oxycodone prn as able to wean off TAPE STRINGER;CBC and P3 07/03/16;ostomy teaching as tolerated. []
[2016-07-02] MEDS: metroNIDAZOLE IV 500 MG/100ML* 500 MG/100 ML BAG IVPB SCH ×2 (11:13→23:17)
[2016-07-02] MEDS: oxyCODONE/Acetamin 5/325 MG* TAB PO PRN ×3 (11:34→19:43)
--- NOTE | 2016-07-02 13:40 | PN ---
Subjective Date of Service: 07/02/16 Interval History: Pain relieved by analgesic. No nausea at present but appetite still low. Walked around the block. Nonew c/o. No flatus, no significant colostomy output. Family History: Unchanged from Admission Social History: Unchanged from Admission Past Medical History: Unchanged from Admission Objective Active Medications: Acetaminophen (Tylenol Supp*) 650 mg OR Q6H PRN PRN Reason: FEVER/PAIN Alprazolam (Xanax Tab*) 0.5 mg PO TID PRN PRN Reason: ANXIETY Last Admin: 07/02/16 06:08 Dose: 0.5 mg Heparin Sodium (Porcine) (Heparin Vial(*)) 5,000 units SUBCUT Q8HR [facility] Last Admin: 07/02/16 06:04 Dose: 5,000 units Meropenem (Merrem 1 Gm Premix(*)) 1 gm in 50 mls @ 100 mls/hr IV Q8H [facility] Last Admin: 07/02/16 10:30 Dose: 100 mls/hr Hydromorphone HCl (Dilaudid Washer Blanket*) 20 mg in 20 mls @ 0 mls/hr BUNDLE TIER .change Q24H [facility]; Per Protocol PRN Reason: Protocol Last Admin: 07/02/16 05:32 Dose: 1 mls/hr Lactated Ringer's (Lactated Ringers 1000 Ml Bag*) 1,000 mls @ 175 mls/hr IV PER RATE [facility] Last Admin: 07/01/16 08:07 Dose: 175 mls/hr Metronidazole/Sodium Chloride (Flagyl 500 Mg Ivpb*) 500 mg in 100 mls @ 100 mls /hr IVPB Q12H [facility] Last Admin: 07/02/16 11:13 Dose: 100 mls/hr Dextrose/Sodium Chloride (D5w 1/2 Ns 1000 Ml Bag*) 1,000 mls @ 75 mls/hr IV PER RATE [facility] Last Admin: 07/02/16 03:55 Dose: 75 mls/hr Lorazepam (Ativan Inj*) 0.5 mg IV PUSH Q6H PRN PRN Reason: ANXIETY Last Admin: 07/01/16 22:12 Dose: 0.5 mg Nicotine (Nicotine Patch 21 Mg/24 Hr*) 1 patch TRANSDERM Q24H PRN PRN Reason: CRAVING Ondansetron HCl (Zofran Inj*) 4 mg IV Q6H PRN PRN Reason: NAUSEA Last Admin: 07/01/16 09:55 Dose: 4 mg Oxycodone/Acetaminophen (Percocet 5/325 Tab*) 1 tab PO Q4H PRN PRN Reason: PAIN Last Admin: 07/02/16 11:34 Dose: 1 tab Pantoprazole Sodium (Protonix Iv*) 40 mg IV 0730 [facility] Last Admin: 07/02/16 08:54 Dose: 40 mg Pharmacy Profile Note (Nicotine Patch Removal Note*) 1 note PATCH OFF 2100 [facility] Last Admin: 07/01/16 22:22 Dose: Not Given Prochlorperazine Edisylate (Compazine Inj*) 10 mg IV Q6H PRN PRN Reason: NAUSEA Vital Signs 07/01/16 07/01/16 07/01/16 14:00 14:38 16:00 Temperature Pulse Rate Respiratory 16 16 16 Rate Blood Pressure (mmHg) O2 Sat by Pulse 100 97 Oximetry 07/01/16 07/01/16 07/01/16 16:14 16:38 18:00 Temperature 98.5 F Pulse Rate 85 Respiratory 16 16 16 Rate Blood Pressure 134/60 (mmHg) O2 Sat by Pulse 93 100 Oximetry 07/01/16 07/01/16 07/01/16 19:19 22:00 22:12 Temperature 98.8 F Pulse Rate 76 Respiratory 16 16 16 Rate Blood Pressure 127/52 (mmHg) O2 Sat by Pulse 98 96 Oximetry 07/01/16 07/01/16 07/01/16 22:30 23:12 23:36 Temperature 99.0 F Pulse Rate 80 Respiratory 16 16 16 Rate Blood Pressure 124/56 (mmHg) O2 Sat by Pulse 99 Oximetry 07/02/16 07/02/16 07/02/16 00:00 02:00 03:44 Temperature 98.8 F Pulse Rate 81 Respiratory 16 16 16 Rate Blood Pressure 121/59 (mmHg) O2 Sat by Pulse 95 94 99 Oximetry 07/02/16 07/02/16 07/02/16 04:00 05:32 06:00 Temperature Pulse Rate Respiratory 16 16 18 Rate Blood Pressure (mmHg) O2 Sat by Pulse 96 96 Oximetry 07/02/16 07/02/16 07/02/16 06:08 07:30 08:00 Temperature 98.4 F Pulse Rate 80 Respiratory 18 16 14 Rate Blood Pressure 120/58 (mmHg) O2 Sat by Pulse 99 91 Oximetry 07/02/16 07/02/16 07/02/16 10:00 11:28 11:34 Temperature 98.0 F Pulse Rate 76 Respiratory 16 16 16 Rate Blood Pressure 111/55 (mmHg) O2 Sat by Pulse 94 97 Oximetry Oxygen Devices in Use Now: None Appearance: Alert, in a chair. In fair spirits. Looks comfortable. Eyes: No Scleral Icterus Ears/Nose/Mouth/Throat: Clear Oropharnyx, Mucous Membranes Moist Neck: NL Appearance and Movements; NL JVP, No Thyroid Enlargement, Masses Respiratory: Symmetrical Chest Expansion and Respiratory Effort, Clear to Auscultation, Clear to Percussion Cardiovascular: NL Sounds; No Murmurs; No JVD, RRR, No Edema, - Extremities: No Edema, No Clubbing, Cyanosis, - Skin: No Rash or Ulcers, No Nodules or Sclerosis, - Neurological: Alert and Oriented x 3, NL Sensation Result Diagrams: 07/01/16 06:17 07/01/16 12:08 Microbiology and Other Data: Microbiology 06/29/16 01:00 Aerobic Blood Culture - Preliminary Blood Venous No Growth Day 1 Anaerobic Blood Culture - Preliminary No Growth Day 1 06/29/16 00:50 Aerobic Blood Culture - Preliminary Blood Venous No Growth Day 1 Anaerobic Blood Culture - Preliminary No Growth Day 1 06/29/16 15:29 Gram Stain - Final Wound Assess/Plan/Problems-Billing . Assessment: 60 yo female with perforated diverticulitis and abdominal abscesses necessitating surgery -- resection of infected colon with colostomy (dickens's procedure). Dual requirement of ureteral stenting secondary to obstructive effect of abscess/infection. Current Medications: - Acetaminophen (Tylenol Supp) 650 mg OR Q6H PRN FEVER/PAIN - Heparin SQ 5,000 units SUBCUT Q8HR - Meropenem 1 gm IV Q8H - Hydromorphone HCl (Dilaudid Washer Blanket) Per Protocol 1 mls/hr - D5w 1/2 NS @ 75 mls/hr - Nicotine (Nicotine Patch 21 Mg) 1 patch Q24H PRN CRAVING - Ondansetron HCl (Zofran Inj) 4 mg IV Q6H PRN NAUSEA - Pantoprazole 40 mg IV Daily - Prochlorperazine Edisylate (Compazine Inj) 10 mg IV Q6H PRN NAUSEA . - Patient Problems (1) Severe protein-calorie malnutrition Current Visit: Yes Status: Acute Priority: High Code(s): E43 - UNSPECIFIED SEVERE PROTEIN-CALORIE MALNUTRITION SNOMED Code(s): 163507934 Comment: - albumin <= 2.5 - pre-albumin 6 - No oral intake - I will discuss improving the nutritional status with the PA. (2) Diverticulitis of colon with perforation Current Visit: Yes Status: Acute Priority: High Code(s): K57.20 - DVTRCLI OF LG INT W PERFORATION AND ABSCESS W/O BLEEDING SNOMED Code(s): 76544638 Comment: - Occurence despite appropriate outpatient treatment with antibiotics - Drainage of abcesses and sigmoid resection/colostomy) 06/29/16. - Continue antibiotics. - Pain control - dilaudid BUNDLE TIER (3) Tobacco abuse Current Visit: Yes Status: Acute Code(s): Z72.0 - TOBACCO USE SNOMED Code( s): 817955517 Comment: Pt advised to quit smoking and avoid second hand smoke. Nictotine patch ordered.
[2016-07-02] MEDS: Cefepime(*) 2 GM in NS 0.9% 50 ML* 50 ML IVPB SCH (19:44)
[2016-07-02] MEDS: Nicotine Patch Removal NOTE PATCH OFF SCH (20:48)
[2016-07-02] MEDS: LORazepam INJ* 2 MG/ML 1 ML VIAL IV PUSH PRN (22:54)
[2016-07-03] MEDS: oxyCODONE/Acetamin 5/325 MG* TAB PO PRN ×5 (05:44→22:37)
[2016-07-03] MEDS: Heparin VIAL(*) 5000 UNITS/ML VIAL (FIVE THOUSAND) SUBCUT SCH ×3 (05:44→22:33)
[2016-07-03 05:59] LABS: Hematocrit 32 % (35-47); Hemoglobin 10.4 g/dl (12.0-16.0); Mean Corpuscular HGB Conc 32 g/dl (31-36); Mean Corpuscular Hemoglobin 28 pg (27-31); Mean Corpuscular Volume 88 fL (80-97); Mean Platelet Volume 8 um3 (7.4-10.4); Red Blood Count 3.66 10^6/ul (4.0-5.4); Red Cell Distribution Width 15 % (10.5-15)
[2016-07-03 06:00] LABS: Add Diff/Slide Review? Slide Review Added; Comments Flag Yes
[2016-07-03 06:11] LABS: BUN/Creatinine Ratio 4.9 (8-20); EGFR African American 129.6 (>60); EGFR Non-African American 100.7 (>60); Potassium 3.7 mmol/L (3.5-5.0)
[2016-07-03] MEDS: Cefepime(*) 2 GM in NS 0.9% 50 ML* 50 ML IVPB SCH ×2 (08:01→20:05)
[2016-07-03] MEDS: metroNIDAZOLE IV 500 MG/100ML* 500 MG/100 ML BAG IVPB SCH ×2 (10:36→22:49)
[2016-07-03] MEDS: D5W 1/2 NS 1000 ML BAG* 1,000 ML IV SCH (13:50)
--- NOTE | 2016-07-03 14:25 | PN ---
Subjective Date of Service: 07/03/16 Interval History: Pain control satisfactory with ASSISTANT SCIENTIST. Started full liquid diet today, tolerating OK so far. Family History: Unchanged from Admission Social History: Unchanged from Admission Past Medical History: Unchanged from Admission Objective Active Medications: Acetaminophen (Tylenol Supp*) 650 mg LA Q6H PRN PRN Reason: FEVER/PAIN Alprazolam (Xanax Tab*) 0.5 mg PO TID PRN PRN Reason: ANXIETY Last Admin: 07/02/16 06:08 Dose: 0.5 mg Heparin Sodium (Porcine) (Heparin Vial(*)) 5,000 units SUBCUT Q8HR [facility] Last Admin: 07/03/16 05:44 Dose: 5,000 units Hydromorphone HCl (Dilaudid Denture Finisher*) 20 mg in 20 mls @ 0 mls/hr ASSISTANT SCIENTIST .change Q24H [facility]; Per Protocol PRN Reason: Protocol Last Admin: 07/02/16 05:32 Dose: 1 mls/hr Metronidazole/Sodium Chloride (Flagyl 500 Mg Ivpb*) 500 mg in 100 mls @ 100 mls /hr IVPB Q12H [facility] Last Admin: 07/03/16 10:36 Dose: 100 mls/hr Dextrose/Sodium Chloride (D5w 1/2 Ns 1000 Ml Bag*) 1,000 mls @ 75 mls/hr IV PER RATE [facility] Last Admin: 07/03/16 13:50 Dose: 75 mls/hr Cefepime HCl 2 gm/ Sodium (Chloride) 50 mls @ 100 mls/hr IVPB Q12H [facility] Last Admin: 07/03/16 08:01 Dose: 100 mls/hr Lorazepam (Ativan Inj*) 0.5 mg IV PUSH Q6H PRN PRN Reason: ANXIETY Last Admin: 07/02/16 22:54 Dose: 0.5 mg Nicotine (Nicotine Patch 21 Mg/24 Hr*) 1 patch TRANSDERM Q24H PRN PRN Reason: CRAVING Ondansetron HCl (Zofran Inj*) 4 mg IV Q6H PRN PRN Reason: NAUSEA Last Admin: 07/01/16 09:55 Dose: 4 mg Oxycodone/Acetaminophen (Percocet 5/325 Tab*) 1 tab PO Q4H PRN PRN Reason: PAIN Last Admin: 07/03/16 10:35 Dose: 1 tab Pharmacy Profile Note (Nicotine Patch Removal Note*) 1 note PATCH OFF 2100 [facility] Last Admin: 07/02/16 20:48 Dose: Not Given Prochlorperazine Edisylate (Compazine Inj*) 10 mg IV Q6H PRN PRN Reason: NAUSEA Vital Signs 07/02/16 07/02/16 07/02/16 15:04 15:42 16:00 Temperature 98.2 F Pulse Rate 72 Respiratory 18 16 16 Rate Blood Pressure 122/60 (mmHg) O2 Sat by Pulse 100 94 Oximetry 07/02/16 07/02/16 07/02/16 17:42 19:34 19:43 Temperature Pulse Rate Respiratory 16 16 18 Rate Blood Pressure (mmHg) O2 Sat by Pulse Oximetry 07/02/16 07/02/16 07/02/16 20:00 20:10 21:43 Temperature 97.8 F Pulse Rate 88 Respiratory 16 18 18 Rate Blood Pressure 128/61 (mmHg) O2 Sat by Pulse 98 93 Oximetry 07/02/16 07/02/16 07/02/16 22:00 22:54 23:52 Temperature 98.2 F Pulse Rate 77 Respiratory 20 20 16 Rate Blood Pressure 101/61 (mmHg) O2 Sat by Pulse 98 100 Oximetry 07/02/16 07/03/16 07/03/16 23:54 00:00 02:00 Temperature Pulse Rate Respiratory 18 20 16 Rate Blood Pressure (mmHg) O2 Sat by Pulse 97 99 Oximetry 07/03/16 07/03/16 07/03/16 03:00 04:00 05:44 Temperature 98.1 F Pulse Rate 84 Respiratory 16 16 18 Rate Blood Pressure 119/57 (mmHg) O2 Sat by Pulse 95 96 Oximetry 07/03/16 07/03/16 07/03/16 07:22 07:44 08:40 Temperature 98.4 F Pulse Rate 72 Respiratory 16 18 18 Rate Blood Pressure 125/60 (mmHg) O2 Sat by Pulse 100 98 Oximetry 07/03/16 07/03/16 07/03/16 10:00 10:35 11:19 Temperature 98.6 F Pulse Rate 76 Respiratory 16 16 14 Rate Blood Pressure 132/65 (mmHg) O2 Sat by Pulse 97 100 Oximetry 07/03/16 07/03/16 12:00 14:00 Temperature Pulse Rate Respiratory 18 16 Rate Blood Pressure (mmHg) O2 Sat by Pulse 98 98 Oximetry Oxygen Devices in Use Now: None Appearance: ALert, partly up in bed. In good spirits. Looks comfortable. Respiratory: Symmetrical Chest Expansion and Respiratory Effort, Clear to Auscultation, Clear to Percussion Cardiovascular: NL Sounds; No Murmurs; No JVD, RRR, No Edema, - Extremities: No Edema, No Clubbing, Cyanosis, - Skin: No Rash or Ulcers, No Nodules or Sclerosis, - Neurological: Alert and Oriented x 3, NL Sensation Result Diagrams: 07/03/16 04:56 07/03/16 04:56 Microbiology and Other Data: Microbiology 06/29/16 01:00 Aerobic Blood Culture - Preliminary Blood Venous No Growth Day 1 Anaerobic Blood Culture - Preliminary No Growth Day 1 06/29/16 00:50 Aerobic Blood Culture - Preliminary Blood Venous No Growth Day 1 Anaerobic Blood Culture - Preliminary No Growth Day 1 06/29/16 15:29 Gram Stain - Final Wound Assess/Plan/Problems-Billing . Assessment: 60 yo female with perforated diverticulitis and abdominal abscesses necessitating surgery -- resection of infected colon with colostomy (dickens's procedure). Dual requirement of ureteral stenting secondary to obstructive effect of abscess/infection. Current Medications: - Acetaminophen (Tylenol Supp) 650 mg LA Q6H PRN FEVER/PAIN - Heparin SQ 5,000 units SUBCUT Q8HR - Meropenem 1 gm IV Q8H - Hydromorphone HCl (Dilaudid Denture Finisher) Per Protocol 1 mls/hr - D5w 1/2 NS @ 75 mls/hr - Nicotine (Nicotine Patch 21 Mg) 1 patch Q24H PRN CRAVING - Ondansetron HCl (Zofran Inj) 4 mg IV Q6H PRN NAUSEA - Pantoprazole 40 mg IV Daily - Prochlorperazine Edisylate (Compazine Inj) 10 mg IV Q6H PRN NAUSEA . - Patient Problems (1) Severe protein-calorie malnutrition Current Visit: Yes Status: Acute Priority: High Code(s): E43 - UNSPECIFIED SEVERE PROTEIN-CALORIE MALNUTRITION SNOMED Code(s): 819681185 Comment: - albumin <= 2.5 - pre-albumin [address] Rojas to call me to discuss the patient's nutritional status. (2) Diverticulitis of colon with perforation Current Visit: Yes Status: Acute Priority: High Code(s): K57.20 - DVTRCLI OF LG INT W PERFORATION AND ABSCESS W/O BLEEDING SNOMED Code(s): 05028815 Comment: - Occurence despite appropriate outpatient treatment with antibiotics - Drainage of abcesses and sigmoid resection/colostomy) 06/29/16. - Continue antibiotics. - Pain control - dilaudid ASSISTANT SCIENTIST (3) Tobacco abuse Current Visit: Yes Status: Acute Code(s): Z72.0 - TOBACCO USE SNOMED Code( s): 555416129 Comment: Pt advised to quit smoking and avoid second hand smoke. Nictotine patch ordered.
--- NOTE | 2016-07-03 18:33 | PN ---
Progress Note - Progress Note SOAP: Subjective: Seen this am. Some flatus in bag. Pain controlled. No n/v/BM. Objective: AVSS u/o adequate abd wounds clean. Packing removed. Ostomy pink with scant gas. Laboratory Results - last 24 hr 07/03/16 07/03/16 04:56 04:56 WBC 9.0 RBC 3.66 L Hgb 10.4 L Hct 32 L MCV 88 MCH 28 MCHC 32 RDW 15 Plt Count 508 H MPV 8 Neut % (Auto) 68.6 Lymph % (Auto) 20.2 L [place] % (Auto) 6.9 Eos % (Auto) 3.4 Baso % (Auto) 0.9 Absolute Neuts (auto) 6.1 Absolute Lymphs (auto) 1.8 Absolute Monos (auto) 0.6 Absolute Eos (auto) 0.3 Absolute Basos (auto) 0.1 Absolute Nucleated RBC 0.01 Nucleated RBC % 0.1 Sodium 140 Potassium 3.7 Chloride 103 Carbon Dioxide 31 Anion Gap 6 BUN 3 L Creatinine 0.61 Est GFR ( Amer) 129.6 Est GFR (Non-Af Amer) 100.7 BUN/Creatinine Ratio 4.9 L Glucose 99 Calcium 8.0 L Microbiology 06/29/16 15:29 Anaerobic Culture - Final Wound No Growth Day 4 Gram Stain - Final Wound Culture - Final No Growth Day 4 06/29/16 01:00 Aerobic Blood Culture - Preliminary Blood Venous No Growth Day 4 Anaerobic Blood Culture - Preliminary No Growth Day 4 Blood Culture - Final 06/29/16 00:50 Aerobic Blood Culture - Preliminary Blood Venous No Growth Day 4 Anaerobic Blood Culture - Preliminary No Growth Day 4 Blood Culture - Final Assessment: POD#4 s/p Thierno/abscess drainage. Doing well. Plan: Advance diet. Continue antibiotics and THIAGO. Ambulate. Ostomy care teaching. Home when able on po abx for 10-14 day course.
[2016-07-03] MEDS: Nicotine Patch Removal NOTE PATCH OFF SCH (21:10)
[2016-07-03] MEDS: ALPRAZolam TAB* 0.5 MG PO PRN (22:38)
[2016-07-04] MEDS: oxyCODONE/Acetamin 5/325 MG* TAB PO PRN ×5 (04:26→22:32)
[2016-07-04] MEDS: D5W 1/2 NS 1000 ML BAG* 1,000 ML IV SCH (04:26)
[2016-07-04] MEDS: Heparin VIAL(*) 5000 UNITS/ML VIAL (FIVE THOUSAND) SUBCUT SCH ×3 (06:10→21:53)
[2016-07-04] MEDS: Cefepime(*) 2 GM in NS 0.9% 50 ML* 50 ML IVPB SCH ×2 (09:22→20:00)
--- NOTE | 2016-07-04 10:32 | PN ---
Subjective Date of Service: 07/04/16 Interval History: Seen and examined Tolerating diet well, no nausea vomiting. 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 Worried about pain control when she returns home Family History: Unchanged from Admission Social History: Unchanged from Admission Past Medical History: Unchanged from Admission Objective Active Medications: Acetaminophen (Tylenol Supp*) 650 mg ND Q6H PRN PRN Reason: FEVER/PAIN Alprazolam (Xanax Tab*) 0.5 mg PO TID PRN PRN Reason: ANXIETY Last Admin: 07/03/16 22:38 Dose: 0.5 mg Heparin Sodium (Porcine) (Heparin Vial(*)) 5,000 units SUBCUT Q8HR [facility] Last Admin: 07/04/16 06:10 Dose: 5,000 units Hydromorphone HCl (Dilaudid Iv*) 1 mg IV SLOW PU Q2H PRN PRN Reason: PAIN Metronidazole/Sodium Chloride (Flagyl 500 Mg Ivpb*) 500 mg in 100 mls @ 100 mls /hr IVPB Q12H [facility] Last Admin: 07/03/16 22:49 Dose: 100 mls/hr Dextrose/Sodium Chloride (D5w 1/2 Ns 1000 Ml Bag*) 1,000 mls @ 75 mls/hr IV PER RATE [facility] Last Admin: 07/04/16 04:26 Dose: 75 mls/hr Cefepime HCl 2 gm/ Sodium (Chloride) 50 mls @ 100 mls/hr IVPB Q12H [facility] Last Admin: 07/04/16 09:22 Dose: 100 mls/hr Nicotine (Nicotine Patch 21 Mg/24 Hr*) 1 patch TRANSDERM Q24H PRN PRN Reason: CRAVING Ondansetron HCl (Zofran Inj*) 4 mg IV Q6H PRN PRN Reason: NAUSEA Last Admin: 07/01/16 09:55 Dose: 4 mg Oxycodone/Acetaminophen (Percocet 5/325 Tab*) 1 tab PO Q4H PRN PRN Reason: PAIN Last Admin: 07/04/16 08:30 Dose: 1 tab Pharmacy Profile Note (Nicotine Patch Removal Note*) 1 note PATCH OFF 2100 [facility] Last Admin: 07/03/16 21:10 Dose: Not Given Prochlorperazine Edisylate (Compazine Inj*) 10 mg IV Q6H PRN PRN Reason: NAUSEA Vital Signs 07/03/16 07/03/16 07/03/16 10:35 11:19 12:00 Temperature 98.6 F Pulse Rate 76 Respiratory 16 14 18 Rate Blood Pressure 132/65 (mmHg) O2 Sat by Pulse 100 98 Oximetry 07/03/16 07/03/16 07/03/16 12:35 14:00 14:22 Temperature Pulse Rate Respiratory 16 16 16 Rate Blood Pressure (mmHg) O2 Sat by Pulse 98 Oximetry 07/03/16 07/03/16 07/03/16 16:00 16:04 16:22 Temperature 98.4 F Pulse Rate 68 Respiratory 16 16 16 Rate Blood Pressure 113/62 (mmHg) O2 Sat by Pulse 97 100 Oximetry 07/03/16 07/03/16 07/03/16 18:00 18:26 19:46 Temperature 98.3 F Pulse Rate 83 Respiratory 16 16 16 Rate Blood Pressure 110/56 (mmHg) O2 Sat by Pulse 97 95 Oximetry 07/03/16 07/03/16 07/03/16 20:26 20:28 21:03 Temperature Pulse Rate Respiratory 20 20 20 Rate Blood Pressure (mmHg) O2 Sat by Pulse 95 Oximetry 07/03/16 07/03/16 07/03/16 22:37 22:38 22:51 Temperature Pulse Rate Respiratory 20 20 18 Rate Blood Pressure (mmHg) O2 Sat by Pulse 99 Oximetry 07/03/16 07/04/16 07/04/16 23:56 00:37 00:38 Temperature 98.4 F Pulse Rate 76 Respiratory 16 16 16 Rate Blood Pressure 99/47 (mmHg) O2 Sat by Pulse 99 Oximetry 07/04/16 07/04/16 07/04/16 01:22 03:22 04:26 Temperature 98.4 F Pulse Rate 73 Respiratory 16 16 20 Rate Blood Pressure 94/51 (mmHg) O2 Sat by Pulse 98 98 Oximetry 07/04/16 07/04/16 07/04/16 04:54 06:26 07:00 Temperature Pulse Rate Respiratory 16 16 16 Rate Blood Pressure (mmHg) O2 Sat by Pulse 96 97 Oximetry 07/04/16 07/04/16 07/04/16 07:46 08:08 08:30 Temperature 98.5 F Pulse Rate 74 Respiratory 16 16 16 Rate Blood Pressure 117/62 (mmHg) O2 Sat by Pulse 99 Oximetry 07/04/16 09:00 Temperature Pulse Rate Respiratory 16 Rate Blood Pressure (mmHg) O2 Sat by Pulse 97 Oximetry Oxygen Devices in Use Now: None Appearance: lying flat, NAD Eyes: No Scleral Icterus, PERRLA Ears/Nose/Mouth/Throat: Clear Oropharnyx, Mucous Membranes Moist Neck: NL Appearance and Movements; NL JVP, Trachea Midline Respiratory: Symmetrical Chest Expansion and Respiratory Effort, Clear to Auscultation Cardiovascular: RRR, - - soft 2/6 ESTRELLITA Abdominal: - - soft, TTP greatest LLQ, pink beefy colostomy, THIAGO in place Extremities: No Edema Skin: No Rash or Ulcers Neurological: Alert and Oriented x 3 Result Diagrams: 07/03/16 04:56 07/03/16 04:56 Microbiology and Other Data: Microbiology 06/29/16 01:00 Aerobic Blood Culture - Preliminary Blood Venous No Growth Day 1 Anaerobic Blood Culture - Preliminary No Growth Day 1 06/29/16 00:50 Aerobic Blood Culture - Preliminary Blood Venous No Growth Day 1 Anaerobic Blood Culture - Preliminary No Growth Day 1 06/29/16 15:29 Gram Stain - Final Wound Assess/Plan/Problems-Billing . Assessment: 60 yo female with perforated diverticulitis and abdominal abscesses necessitating surgery -- resection of infected colon with colostomy (dickens's procedure). Dual requirement of ureteral stenting secondary to obstructive effect of abscess/infection. - Patient Problems (1) Diverticulitis of colon with perforation Comment: POD 4 Drainage of abcesses and sigmoid resection/colostomy) 06/29/16. 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 and start PRN dilaudid in addition to oxycodone d5 1/2 NS until intake improves (2) Severe protein-calorie malnutrition Current Visit: Yes Status: Acute Priority: High Code(s): E43 - UNSPECIFIED SEVERE PROTEIN-CALORIE MALNUTRITION SNOMED Code(s): 481329311 Comment: - albumin <= 2.5 - pre-albumin 6 advanced diet (3) Tobacco abuse Current Visit: Yes Status: Acute Code(s): Z72.0 - TOBACCO USE SNOMED Code( s): 275129582 Comment: Nictotine patch smoking cessation counseling (4) Ureteral obstruction Current Visit: Yes Status: Acute Priority: High Code(s): N13.5 - CROSSING VESSEL AND STRICTURE OF URETER W/O HYDRONEPHROSIS SNOMED Code(s): 91854606 Comment: s/p ureteral stenting by urology (5) DVT prophylaxis Comment: SQ heparin
[2016-07-04] MEDS: ALPRAZolam TAB* 0.5 MG PO PRN ×2 (11:19→21:52)
[2016-07-04] MEDS: metroNIDAZOLE IV 500 MG/100ML* 500 MG/100 ML BAG IVPB SCH ×2 (11:20→23:58)
--- NOTE | 2016-07-04 13:14 | PN ---
Progress Note - Progress Note SOAP: Subjective: []awake,alert;no nausea,hungry;participating in ostomy care;walking Objective:lungs:clear bilat;heart:RRR;abd:ostomy with air in bag and liquid brown drainage,stoma beefy;dsg will be changed by RN today:extremities:nontender ,no edema [] Assessment:POD#5 s/p Thierno's,making progress [] Plan:Advance to soft diet,continue ostomy teaching;PLANT HR MANAGER discontinued per Hosp; disch when able []
[2016-07-04] MEDS: HYDROmorphone INJ* 1 MG/ML CARPUJECT SYRINGE IV SLOW PU PRN ×4 (15:30→22:33)
[2016-07-04] MEDS: Nicotine Patch Removal NOTE PATCH OFF SCH (21:42)
[2016-07-05] MEDS: HYDROmorphone INJ* 1 MG/ML CARPUJECT SYRINGE IV SLOW PU PRN ×6 (00:39→23:58)
[2016-07-05] MEDS ORDERED: HYDROmorphone INJ* 1 MG/ML CARPUJECT SYRINGE IV SLOW PU ONE (00:58)
[2016-07-05] MEDS ORDERED: HYDROmorphone INJ* 1 MG/ML CARPUJECT SYRINGE ONE (01:03)
[2016-07-05] MEDS: Nystatin TOP POWDER* 15 GM BTL TOPICAL SCH ×3 (01:10→21:35)
[2016-07-05] MEDS: oxyCODONE TAB* 5 MG TAB PO PRN ×5 (03:45→21:11)
[2016-07-05] MEDS: Baclofen TAB* 10 MG PO SCH ×3 (05:33→17:49)
[2016-07-05] MEDS: Heparin VIAL(*) 5000 UNITS/ML VIAL (FIVE THOUSAND) SUBCUT SCH ×3 (05:39→21:35)
--- NOTE | 2016-07-05 07:28 | PN ---
Subjective Date of Service: 07/05/16 Interval History: Pain worse overnight. PO pain meds increased to 15mg oxycodone and dilaudid increased from 1 to 2mg IV. Tolerated soft diet well yesterday. OOB Family History: Unchanged from Admission Social History: Unchanged from Admission Past Medical History: Unchanged from Admission Objective Active Medications: Acetaminophen (Tylenol Supp*) 650 mg CA Q6H PRN PRN Reason: FEVER/PAIN Alprazolam (Xanax Tab*) 0.5 mg PO TID PRN PRN Reason: ANXIETY Last Admin: 07/04/16 21:52 Dose: 0.5 mg Baclofen (Lioresal Tab*) 10 mg PO 0600,1200,1800 [facility] Last Admin: 07/05/16 05:33 Dose: 10 mg Heparin Sodium (Porcine) (Heparin Vial(*)) 5,000 units SUBCUT Q8HR [facility] Last Admin: 07/05/16 05:39 Dose: 5,000 units Hydromorphone HCl (Dilaudid Iv*) 2 mg IV SLOW PU Q2H PRN PRN Reason: PAIN Last Admin: 07/05/16 05:34 Dose: 2 mg Metronidazole/Sodium Chloride (Flagyl 500 Mg Ivpb*) 500 mg in 100 mls @ 100 mls /hr IVPB Q12H [facility] Last Admin: 07/04/16 23:58 Dose: 100 mls/hr Cefepime HCl 2 gm/ Sodium (Chloride) 50 mls @ 100 mls/hr IVPB Q12H [facility] Last Admin: 07/04/16 20:00 Dose: 100 mls/hr Nicotine (Nicotine Patch 21 Mg/24 Hr*) 1 patch TRANSDERM Q24H PRN PRN Reason: CRAVING Nystatin (Nystatin Top Powder*) 1 applic TOPICAL BID [facility] Last Admin: 07/05/16 01:10 Dose: 1 applic Ondansetron HCl (Zofran Inj*) 4 mg IV Q6H PRN PRN Reason: NAUSEA Last Admin: 07/01/16 09:55 Dose: 4 mg Oxycodone HCl (Roxycodone Tab*) 15 mg PO Q4H PRN PRN Reason: PAIN Last Admin: 07/05/16 03:45 Dose: 15 mg Pharmacy Profile Note (Nicotine Patch Removal Note*) 1 note PATCH OFF 2100 [facility] Last Admin: 07/04/16 21:42 Dose: Not Given Prochlorperazine Edisylate (Compazine Inj*) 10 mg IV Q6H PRN PRN Reason: NAUSEA Vital Signs 07/04/16 07/04/16 07/04/16 07:46 08:08 08:30 Temperature 98.5 F Pulse Rate 74 Respiratory 16 16 16 Rate Blood Pressure 117/62 (mmHg) O2 Sat by Pulse 99 Oximetry 07/04/16 07/04/16 07/04/16 09:00 10:30 11:00 Temperature Pulse Rate Respiratory 16 16 16 Rate Blood Pressure (mmHg) O2 Sat by Pulse 97 98 Oximetry 07/04/16 07/04/16 07/04/16 11:19 12:32 12:41 Temperature 98.6 F Pulse Rate 93 Respiratory 16 22 16 Rate Blood Pressure 127/68 (mmHg) O2 Sat by Pulse 95 Oximetry 07/04/16 07/04/16 07/04/16 13:19 14:41 15:30 Temperature Pulse Rate Respiratory 16 16 16 Rate Blood Pressure (mmHg) O2 Sat by Pulse Oximetry 07/04/16 07/04/16 07/04/16 16:07 16:30 16:54 Temperature 97.9 F Pulse Rate 85 Respiratory 16 16 18 Rate Blood Pressure 123/76 (mmHg) O2 Sat by Pulse 98 Oximetry 07/04/16 07/04/16 07/04/16 17:57 18:57 19:38 Temperature Pulse Rate Respiratory 16 18 16 Rate Blood Pressure (mmHg) O2 Sat by Pulse Oximetry 07/04/16 07/04/16 07/04/16 19:58 20:03 20:58 Temperature 99.1 F Pulse Rate 80 Respiratory 18 18 18 Rate Blood Pressure 135/64 (mmHg) O2 Sat by Pulse 100 Oximetry 07/04/16 07/04/16 07/04/16 21:52 22:32 22:33 Temperature Pulse Rate Respiratory 16 18 18 Rate Blood Pressure (mmHg) O2 Sat by Pulse Oximetry 07/04/16 07/04/16 07/04/16 23:33 23:52 23:56 Temperature 98.1 F Pulse Rate 82 Respiratory 16 16 16 Rate Blood Pressure 110/55 (mmHg) O2 Sat by Pulse 97 Oximetry 07/05/16 07/05/16 07/05/16 00:32 00:39 01:05 Temperature Pulse Rate Respiratory 22 20 20 Rate Blood Pressure (mmHg) O2 Sat by Pulse Oximetry 07/05/16 07/05/16 07/05/16 01:39 02:05 03:33 Temperature 98.5 F Pulse Rate 74 Respiratory 20 16 16 Rate Blood Pressure 121/68 (mmHg) O2 Sat by Pulse 97 Oximetry 07/05/16 07/05/16 07/05/16 03:45 03:46 04:46 Temperature Pulse Rate Respiratory 20 20 20 Rate Blood Pressure (mmHg) O2 Sat by Pulse Oximetry 07/05/16 07/05/16 07/05/16 05:34 05:45 06:34 Temperature Pulse Rate Respiratory 20 16 16 Rate Blood Pressure (mmHg) O2 Sat by Pulse Oximetry Oxygen Devices in Use Now: None Appearance: lying flat, NAD Eyes: No Scleral Icterus, PERRLA Ears/Nose/Mouth/Throat: NL Teeth, Lips, Gums, Clear Oropharnyx, Mucous Membranes Moist Neck: NL Appearance and Movements; NL JVP, Trachea Midline Respiratory: Symmetrical Chest Expansion and Respiratory Effort, Clear to Auscultation Cardiovascular: NL Sounds; No Murmurs; No JVD, RRR Abdominal: - - midline incision, THIAGO with serosangenous fluid, TTP, soft, ND, ostomy with flatus Extremities: No Edema Skin: No Rash or Ulcers Neurological: Alert and Oriented x 3 Result Diagrams: 07/03/16 04:56 07/03/16 04:56 Microbiology and Other Data: Microbiology 06/29/16 01:00 Aerobic Blood Culture - Preliminary Blood Venous No Growth Day 1 Anaerobic Blood Culture - Preliminary No Growth Day 1 06/29/16 00:50 Aerobic Blood Culture - Preliminary Blood Venous No Growth Day 1 Anaerobic Blood Culture - Preliminary No Growth Day 1 06/29/16 15:29 Gram Stain - Final Wound Assess/Plan/Problems-Billing . Assessment: 60 yo female with perforated diverticulitis and abdominal abscesses necessitating surgery -- resection of infected colon with colostomy (dickens's procedure). Dual requirement of ureteral stenting secondary to obstructive effect of abscess/infection. - Patient Problems (1) Diverticulitis of colon with perforation Comment: POD 5 Drainage of abcesses and sigmoid resection/colostomy) 06/29/16. Cefepime and flagyl with d/c on 10-14 days PO abx c/w increased dose oxycodone and breakthrough dilaudid stop d5 1/2 NS soft diet advance per surgery (2) Severe protein-calorie malnutrition Current Visit: Yes Status: Acute Priority: High Code(s): E43 - UNSPECIFIED SEVERE PROTEIN-CALORIE MALNUTRITION SNOMED Code(s): 765035198 Comment: - albumin <= 2.5 - pre-albumin 6 advanced diet to soft 07/04 (3) Tobacco abuse Current Visit: Yes Status: Acute Code(s): Z72.0 - TOBACCO USE SNOMED Code( s): 260643889 Comment: Nictotine patch smoking cessation counseling (4) Ureteral obstruction Current Visit: Yes Status: Acute Priority: High Code(s): N13.5 - CROSSING VESSEL AND STRICTURE OF URETER W/O HYDRONEPHROSIS SNOMED Code(s): 50697220 Comment: s/p ureteral stenting by urology (5) DVT prophylaxis Comment: SQ heparin Status and Disposition: When clear from surgical perspective and stable on PO pain medications. Suspect 24-48 hrs
[2016-07-05] MEDS: Cefepime(*) 2 GM in NS 0.9% 50 ML* 50 ML IVPB SCH ×2 (07:48→19:59)
[2016-07-05] MEDS: metroNIDAZOLE IV 500 MG/100ML* 500 MG/100 ML BAG IVPB SCH (10:43)
[2016-07-05] MEDS: ALPRAZolam TAB* 0.5 MG PO PRN ×2 (11:14→17:48)
--- NOTE | 2016-07-05 14:31 | PN ---
Progress Note - Progress Note SOAP: Subjective: Comfortable. Hungry. Some flatus in bag but no stool. She expects to learn to change her ostomy appliance today. Objective: Vital Signs Temp 98.1 F 07/05/16 11:36 Pulse 74 07/05/16 11:36 Resp 16 07/05/16 13:06 BP 113/68 07/05/16 11:36 Pulse Ox 97 07/05/16 11:36 Intake & Output 07/04/16 07/05/16 07/05/16 18:59 06:59 18:59 Intake Total 320 2163 484 Output Total 405 1280 805 Balance -85 883 -321 Intake: IV Fluids 1263 384 ABX - CEFEPIME 120 ABX - FLAGYL 210 D5W 1/2 NS 933 384 Oral 320 900 100 Output: THIAGO #1 5 30 5 Urine 400 1250 800 Ileostomy 0 NAD, sitting up at side of bed eating breakfast. Abd: obese, dressings intact. Ostomy pink with gas. Assessment: POD#6 s/p Harmann and drainage of abscesses. Plan: Cont diet. Cont ostomy teaching. Possible d/c home tomorrow. Remove THIAGO prior to d/c home. Cont abx for 10-14 day course. Eventually will need colostomy reversal, no sooner than 3 months.
[2016-07-05] MEDS: Nicotine Patch Removal NOTE PATCH OFF SCH (21:13)
[2016-07-05] MEDS: metroNIDAZOLE TAB* 250 MG PO SCH (21:35)
[2016-07-06] MEDS: oxyCODONE TAB* 5 MG TAB PO PRN ×3 (02:37→12:46)
[2016-07-06] MEDS: Baclofen TAB* 10 MG PO SCH ×2 (05:39→12:45)
[2016-07-06] MEDS: Heparin VIAL(*) 5000 UNITS/ML VIAL (FIVE THOUSAND) SUBCUT SCH (05:39)
[2016-07-06] MEDS: Cefepime(*) 2 GM in NS 0.9% 50 ML* 50 ML IVPB SCH (07:37)
[2016-07-06] MEDS: ALPRAZolam TAB* 0.5 MG PO PRN (07:48)
[2016-07-06 08:25] VITALS: BP 127/64
[2016-07-06] MEDS: metroNIDAZOLE TAB* 250 MG PO SCH (10:17)
[2016-07-06] MEDS: Nystatin TOP POWDER* 15 GM BTL TOPICAL SCH (10:19)
--- NOTE | 2016-07-06 11:01 | PN ---
Progress Note - Progress Note SOAP: DISCHARGE NOTE Subjective:awake and alert;wants to go home;making progress with ostomy care [] Objective:lungs:clear bilat;Heart:RRR,no M/R;abd:+bs,stoma pink,+gas in ostomy bag;midline incision with intermittent talat,some granulation;no erythema; drainage serous;packing changed,redressed;THIAGO drain pulled,exit site clean, covered with dry 4x4;extremities:nontender,no edema [] Assessment:POD#7 s/p Thierno's,drainage abscesses [] Plan:Discharge today on antibiotics,home care with[facility],followup in our office 07/12/16;discharge instructions reviewed,RX sent []
--- NOTE | 2016-07-06 21:13 | DS ---
DISCHARGE SUMMARY: DATE OF ADMISSION: 06/29/16 DATE OF DISCHARGE: 07/06/16 PRIMARY CARE PROVIDER: KARLO Castellon, [facility]. ATTENDING SURGEON: Kamron Rojas MD (dictated by Bree Cunningham NP) DISCHARGING PROVIDER: Bree Cunningham NP. PRIMARY DISCHARGE DIAGNOSIS: Status post Thierno's procedure with drainage of intra-abdominal abscesses. SECONDARY DISCHARGE DIAGNOSES: 1. Chronic back pain with chronic opioid use. 2. Morbid obesity with a body mass index of 42. 3. Smoking. HOSPITAL COURSE: The patient is a 60-year-old female who was readmitted to [facility] on 06/29/16 with severe abdominal pain and nausea. She had been admitted to [facility], 06/21/16 through 06/26/16 for suspected diverticulitis, treated with metronidazole and ceftriaxone. She was discharged on 06/26/16 after being afebrile for 48 hours with decreasing pain but had elevated WBC's on 5 days of antibiotics. She called her primary care provider on 06/28/16 with complaints of worsening abdominal pain and nausea and was sent to the [facility] where repeat CAT scan of the abdomen revealed progression of sigmoid diverticulitis with multiple pelvic abscesses, one of which impinged the right ureter resulting in mild hydronephrosis. She was readmitted to the surgery service and taken to the operating room by Dr. Rojas on 06/29/16 and underwent laparotomy with lysis of adhesions, drainage of intra-abdominal abscesses, sigmoid colectomy with end- colostomy and Thierno pouch. Dr. Wood inserted a right ureteral stent at the same setting. Postoperatively, she has been maintained on IV fluids, IV antibiotics and gradually her diet has been advanced and she is tolerating a soft diet without any nausea. Ostomy teaching has been implemented and the patient is increasingly comfortable with ostomy care. She has not required a nicotine patch for smoking cessation and has made a commitment to stop smoking. A Nutrition consult was ordered to educate the patient on the importance of protein in her diet to aid in healing. She has had ongoing abdominal incision wound care, which will be continued with the assistance of a visiting nurse. She is a patient in the [facility], treated for chronic back pain and is on chronic opioids at home; she has been requiring oxycodone 15 mg p.o. 2 to 3 times per shift. She has been up walking and using the [employer]. DISPOSITION AND FOLLOWUP PLAN: The patient is being discharged to home where she lives with her ; visiting nurse visits have been arranged through [facility] with the assistance of the associate merchandise planner. She will have 2 weeks of oral antibiotics, specifically cefpodoxime and Flagyl; she will have a nicotine patch p.r.n. She will continue on her usual home medications, which include oxycodone, baclofen and alprazolam. She will also continue a stool softener daily. She will continue on a soft, high protein diet. She will follow up at the [facility] and with her primary care provider. She has an appointment for followup at [facility] on , 07/12/16. Prescriptions were sent to her pharmacy and the discharge instructions were reviewed with the patient and all of her questions were answered. SUSSY CUNNINGHAM NP CC: Kamron Rojas MD, [facility]; KARLO Castellon, [facility] * [id number]/[facility] #: [id number] MTDD
--- NOTE | 2016-07-07 05:38 | DS ---
DISCHARGE SUMMARY: DATE OF ADMISSION: 06/29/16 DATE OF DISCHARGE: 07/06/16 PRIMARY CARE PROVIDER: KARLO Castellon PRIMARY DIAGNOSES: 1. Perforated diverticulitis with abdominal abscess. 2. Colostomy. 3. Obstructive ureter, status post stenting. SECONDARY DIAGNOSES: 1. Severe protein-calorie malnutrition. 2. Tobacco abuse. MEDICATIONS ON DISCHARGE: Prepared by surgical team, KARLO Lopez, include: 1. Cefpodoxime 200 mg twice daily. 2. Flagyl 500 mg 3 times a day. 3. Nicotine patch. 4. Oxycodone 15 mg every 4 hours. 5. Alprazolam 0.5 mg as needed. 6. Senna and docusate daily. 7. Baclofen 10 mg 3 times a day. PROCEDURES PERFORMED DURING HOSPITAL STAY: Exploratory laparotomy with colostomy, same time cystoscopy with retrograde stent insertion. HISTORY OF PRESENT ILLNESS AND HOSPITAL COURSE: A 60-year-old female recently hospitalized at the beginning of this for diverticulitis treated with antibiotics, discharged, who returned with progression of diverticulitis, with addition of multiple pelvic abscesses causing impingement of the right ureter and mild hydronephrosis. She was brought to the operating room for ex-lap with colostomy and Thierno's procedure tolerated without complications. She was followed in conjunction with the hospitalist service. Titrated off of her ANATOMICAL EMBALMER to oral medications without complication. Her diet was advanced, tolerating regular diet prior to discharge. She did not have any evidence of kidney injury and kidney function continued to be well maintained. No evidence of continued infection at the time of discharge. THIAGO drain was pulled prior to discharge. Followup will be arranged by the surgical services. Wound care per surgical services. At followup please; 1. Evaluate for continued pain control. 2. Evaluate for continued wound stability. TIME SPENT: Greater than 30 minutes were spent on discharge of the patient, greater than half was spent [id number] with the patient. [id number]/[facility] #: [id number] [facility] HEALTHGabriele
--- NOTE | 2016-07-20 21:50 | OP ---
OPERATIVE REPORT: DATE OF OPERATION: 06/29/16 DATE OF : [birth year] AGE: 60 years, female. SURGEON: Dante Wood MD ANESTHESIA: General. PRE-OP DIAGNOSES: 1. Right hydronephrosis. 2. Diverticular abscess. POST-OP DIAGNOSES: 1. Right hydronephrosis. 2. Diverticular abscess. OPERATIVE PROCEDURE: Cystoscopy, right retrograde pyelogram, right stent insertion. COMPLICATIONS: None. STENT USED: 7-Japanese stent, right ureter OPERATIVE FINDINGS: Right hydronephrosis and proximal hydroureter. POSTOPERATIVE CONDITION: Stable. INDICATIONS: Karyn Aguero is a 60-year-old lady who was admitted for a diverticular abscess. She was noted to have right hydronephrosis and is being brought in for Thierno's procedure end colostom y and will also require right stent insertion. DESCRIPTION OF PROCEDURE: After completion of the general surgical procedure by Dr. Rojas, the pa tient was placed in dorsal lithotomy position. Sequential compression devices were in place and fun ctioning. Initial cystoscopy revealed a normal-appearing bladder with some extrinsic pressure noted on the bladder at the superior aspect. There was no evidence of any bladder lesions noted. Right retrograde pyelogram confirmed fullness of the right collecting system and proximal right ureter and a 7-Japanese stent was introduced and positioned under fluoroscopy with good proximal and distal posi tioning obtained. Reeder catheter was introduced. The patient tolerated the procedure satisfactorily and was transferred back to recovery area in stable condition. [id number]/[facility] #: [id number]
== END 2016-07-06 13:10 | disposition home health service (06) | DRG 221 ==
LOC: ED 22:53 → SSU 06-29 00:46
PROVIDERS: ADMIT Hospitalist; ATTEND Internal Medicine
PROC: 0DNN0ZZ Release Sigmoid Colon, Open Approach (ICD-10-PCS; 2016-06-29)
PROC: 0W9G0ZZ Drainage of Peritoneal Cavity, Open Approach (ICD-10-PCS; 2016-06-29)
PROC: 0UQ60ZZ Repair Left Fallopian Tube, Open Approach (ICD-10-PCS; 2016-06-29)
PROC: 0T768DZ Dilation of Right Ureter with Intraluminal Device, Via Natural or Artificial Opening Endoscopic (ICD-10-PCS; 2016-06-29)
PROC: 0DTN0ZZ Resection of Sigmoid Colon, Open Approach (ICD-10-PCS; principal; 2016-06-29 16:00)
PROC: 0D1M0Z4 Bypass Descending Colon to Cutaneous, Open Approach (ICD-10-PCS; 2016-06-29 16:00)
DX: K57.20 Diverticulitis of large intestine with perforation and abscess without bleeding (principal); E43 Unspecified severe protein-calorie malnutrition; Z68.41 Body mass index [BMI] 40.0-44.9, adult; N13.1 Hydronephrosis with ureteral stricture, not elsewhere classified; N99.71 Accidental puncture and laceration of a genitourinary system organ or structure during a genitourinary system procedure; Z88.8 Allergy status to other drugs, medicaments and biological substances; Z88.1 Allergy status to other antibiotic agents; Z88.0 Allergy status to penicillin; Z91.030 Bee allergy status; G89.29 Other chronic pain; M81.0 Age-related osteoporosis without current pathological fracture; Z86.73 Personal history of transient ischemic attack (TIA), and cerebral infarction without residual deficits; F41.9 Anxiety disorder, unspecified; Z82.49 Family history of ischemic heart disease and other diseases of the circulatory system; F17.210 Nicotine dependence, cigarettes, uncomplicated; M54.5 Low back pain; E66.01 Morbid (severe) obesity due to excess calories; E87.6 Hypokalemia; G43.909 Migraine, unspecified, not intractable, without status migrainosus; F32.9 Major depressive disorder, single episode, unspecified; K21.9 Gastro-esophageal reflux disease without esophagitis; K66.0 Peritoneal adhesions (postprocedural) (postinfection); Y83.8 Other surgical procedures as the cause of abnormal reaction of the patient, or of later complication, without mention of misadventure at the time of the procedure
CPT/HCPCS: 36415; 74420; 80048; 80053; 84134; 85025; 85060; 87040; 87070; 87073; 87205; 88307; 93005; 94640; 94760; 99406; A9270-GY; C1876; J0692; J1170; J1580; J1644; J2060; J2185; J2250; J2270; J2405; J2704; J3010; J3480; J3490

== ENCOUNTER 2016-10-23 09:32 | Inpatient (IN) | payer BC ==
--- NOTE | 2016-10-18 16:00 | HP ---
ADMISSION HISTORY AND PHYSICAL: DATE OF ADMISSION: 10/23/16 PATIENT OF: Dr. Kamron Rojas. (DICTATED BY KARLO BRADLEY) CHIEF COMPLAINT: History of perforated sigmoid diverticulitis, status post Thierno's procedure with a colostomy on 06/29/16. HISTORY OF PRESENT ILLNESS: Ms. Aguero is a pleasant 60-year-old female who was initially seen back in June of this year with complaints of acute onset of abdominal pain. The patient apparently was seen in the emergency room back in June of this year and was diagnosed with sigmoid diverticulitis that was her initial episode. She never had any colonoscopy done or similar episodes in the past. She was treated medically but unfortunately she failed her medical treatment and presented 2 days later with worsening abdominal pain. She was found to have a perforated viscus with evidence of multiple pelvic abscesses for which we saw the patient in consultation back on June 29, 2016. The patient was taken to the operating room back then where she underwent a Thierno 's procedure with sigmoid colectomy and diverting colostomy that went eventually very well. The patient had recovered very well since her surgery over three months ago. She was seen in the office on multiple occasions for postoperative visit. She initially had some issues with her midline wound healing slowly but her wound essentially healed nicely according to last visit, approximately a month ago. The patient has been doing relatively well with no complaints of abdominal pain, nausea, vomiting or any recent illness. She has been maintaining her colostomy very well and had noticed a good output on a daily basis. She was seen in the office earlier this month to discuss colostomy reversal with Dr. Rojas. Given the fact that the patient had no prior colonoscopy before she was advised to return to Dr. Kishan Hernandez to undergo a surveillance colonoscopy prior to scheduling her elective colostomy reversal. The patient had her colonoscopy last Saturday and according to her it went very well and there was no abnormal findings. I do not appreciate any operative notes for the colonoscopy at the time of dictation. The patient presented to the office today to discuss her upcoming surgery. She denied any nausea, vomiting, changes in bowel habits or any bleeding via the stoma. She denies any fever, chills or changes in her weight recently. PAST MEDICAL HISTORY: As mentioned above, significant for recurrent sigmoid diverticulitis with perforation for which she underwent Thierno's procedure back in June of this year. She also has history of chronic low back pain, spinal stenosis, morbid obesity, anxiety, and depression. PAST SURGICAL HISTORY: Significant for sigmoid colectomy with diverting colostomy (Thierno's procedure back on June 29, 2016). She also had surveillance colonoscopy last Saturday. The patient also had an open appendectomy many years ago. CURRENT MEDICATIONS: Her medications at home include: 1. Nicotine patches Step2 of 14 mg every 24 hours. 2. Aspirin 325 mg once daily. 3. Xanax 0.5 mg 1 tablet b.i.d. p.r.n. for an anxiety. 4. EpiPen 2 pack 0.3 mg as needed for bee stings. 5. Valtrex 500 mg once by mouth every day as needed. 6. Baclofen 10 mg 1 tablet 3 times daily as needed for muscle spasm. 7. She also takes Percocet occasionally for chronic back pain. 8. Gabapentin 300 mg 1 tablet q.h.s. 9. Omeprazole 20 mg 1 by mouth as needed for GERD. 10. Ventolin 108 mcg 2 puffs by mouth 4 times a day as needed for shortness of breath. 11. Lasix 40 mg once by mouth p.r.n. for edema. 12. Multivitamin every day. ALLERGIES: She reports allergies to LEVAQUIN that caused hives, PENICILLIN as well that caused a rash. She also notes allergies to NSAIDs despite the fact that she takes aspirin every day, but she informs me that if she takes more than one tablet per day it can cause a rash and swelling. She is also allergic to BEE STINGS. FAMILY HISTORY: She denies any family history of colorectal malignancies. 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 She smokes a pack of cigarettes per day; however, has been trying recently to quit smoking using nicotine patches. She occasionally drinks alcohol and denies any illicit drug use. REVIEW OF SYSTEMS: See HPI, otherwise negative. She denies any nausea, vomiting, recent changes in bowel habits or bleeding per stoma. No cough, wheezing, chest pain or shortness of breath. No headache, dizziness, or syncope. She denies any back pain out of the ordinary. It is to be mentioned also that the patient has been followed by the pain clinic given her chronic back pain for which she received periodic lumbar injections, as well as script for Percocet to use as needed on a regular basis. She denies any flank pain, dysuria, hematuria, or urinary frequency. PHYSICAL EXAMINATION GENERAL: She is a pleasant, moderately obese, middle-aged female appears comfortable and in no acute distress or discomfort. VITAL SIGNS: Her vitals today; blood pressure of 126/78, pulse of 72, respiration 16, temperature of 97.5. Weight of 222 pounds on a 5 feet 4 inch frame with BMI of 38. HEENT: Sclerae anicteric. PERRLA. EOMs intact. Oropharynx is pink and moist with no exudate. NECK: Supple. Trachea midline. No cervical adenopathy, thyromegaly, or JVD. BACK: Normal curvature. No CVA tenderness. LUNGS: Clear to auscultation bilaterally. HEART: Regular rate and rhythm. Normal S1 and S2 without rubs, murmurs, or gallops. BREASTS: Exam deferred at this time. ABDOMEN: Soft and nondistended. No tenderness noted throughout the abdomen. Midline incision has been well healed. No evidence of ventral hernia or organomegaly. Stoma is viable, pink with moderate amount of semisolid brown stools noted in the bag. No evidence of parastomal hernia. EXTREMITIES: Without cyanosis, clubbing, or edema. RECTAL: Deferred until time of surgery. NEUROLOGIC: Grossly intact. IMPRESSION: A 60-year-old female, status post sigmoid colectomy with diverting colostomy secondary to perforated sigmoid diverticulitis who presented to the office today for a preoperative visit considering elective schedule of colostomy reversal. PLAN: I went on and discussed with the patient surgical plans today. She is scheduled with Dr. Rojas to undergo laparoscopic colostomy reversal on . The rationale, indications, risks, and benefits of the surgery were discussed with her today. Dr. Rojas also saw the patient and answered some of her questions regarding the expected surgery and outcome of recovery. Risks include, but not limited to infection, bleeding, or injury to adjacent structures. She seems to be well informed and wishes to proceed with surgery as outlined. She will have her preadmission testing done today. We will obtain baseline blood work, chest x-ray given her history of smoking and asthma , as well as an EKG if not done within the past 6 months. We will follow her up accordingly after the surgery. BAHGAT KARLO STEPHENSON CC: Dr. Kishan Hernandez; Dr. Konstantin Lozada; Dr. Tim Crum * [id number]/CPS #: [id number] [facility]
[~2016-10-23 09:32] MED LIST: Buffered Lidocaine 1% SYR 3ML* 3 ML/SYR SYRINGE INTRADERM ONE
[2016-10-23] MEDS ORDERED: Clindamycin 900 MG IVPREMIX(* 900 MG/50 ML SDV IV ONE (09:48)
[2016-10-23] MEDS ORDERED: Midazolam* 1 MG/ML 5 ML VIAL (5 MG) ONE (11:02)
[2016-10-23] MEDS ORDERED: Propofol* 10 MG/ML 20 ML BTL IV PUSH ONE (11:05)
[2016-10-23] MEDS ORDERED: fentaNYL* 50 MCG/ML 2 ML VIAL (100 MCG VIAL) ONE ×7 (11:07→17:18)
[2016-10-23] MEDS ORDERED: Atracurium* 10 MG/ML 10 ML VIAL ONE (11:08)
[2016-10-23] MEDS ORDERED: Scopolamine 1.5 mg* PATCH ONE (11:29)
[2016-10-23] MEDS ORDERED: Bupivacaine 0.5% W/EPI SDV* 30 ML VIAL ONE ×2 (11:50→12:00)
[2016-10-23] MEDS ORDERED: Dexamethasone IV* 4 MG/ML 1 ML (4 MG) ONE (12:17)
[2016-10-23] MEDS ORDERED: DiMENhydriNATE IV* 50 MG/ML VIAL IV PUSH PRN (14:09)
[2016-10-23] MEDS ORDERED: Ondansetron INJ* 2 MG/ML VIAL IV PRN ×2 (14:09→16:14)
[2016-10-23] MEDS ORDERED: Ondansetron INJ* 2 MG/ML VIAL ONE (15:41)
[2016-10-23] MEDS ORDERED: Docusate CAP* 100 MG PO PRN (16:14)
[2016-10-23] MEDS ORDERED: HYDROmorphone* 1 MG/ML 1 ML SYR ONE (16:16)
[2016-10-23] MEDS: fentaNYL* 50 MCG/ML 2 ML VIAL (100 MCG VIAL) IV PRN ×5 (16:17→17:20)
[2016-10-23] MEDS ORDERED: Furosemide TAB* 40 MG PO PRN (16:23)
[2016-10-23] MEDS: HYDROmorphone* 1 MG/ML 1 ML SYR IV PRN ×2 (16:27→16:34)
--- NOTE | 2016-10-23 16:31 | PN ---
Progress Note - Progress Note Note: Brief operative note: Pre-op: Perforated diverticulitis, s/p Thierno's procedure Post-op: same Procedure: Attempt laparoscopic with AMI, laparotomy with reversal of colostomy Surgeon: Dr. Rojas Adult Protective Caseworker: Naz Steve Darlin: GETA EBL: 200 cc Urine: 300 cc Fluids: 5,000 cc LR Drains: none Catheter: Reeder to gravity Specimen: Colostomy take down Findings: See dictated op note
[2016-10-23] MEDS ORDERED: HYDROmorphone PCA* 20 MG/20 ML PCA.SYRING ONE (16:40)
[2016-10-23] MEDS ORDERED: HYDROmorphone PCA* 20 MG/20 ML PCA.SYRING PCA SCH (17:00)
[2016-10-23] MEDS: Baclofen TAB* 10 MG PO PRN (20:09)
[2016-10-23] MEDS ORDERED: ALPRAZolam TAB* 0.5 MG PO SCH (21:00)
[2016-10-23] MEDS: Heparin VIAL(*) 5000 UNITS/ML VIAL (FIVE THOUSAND) SUBCUT SCH (22:00)
[2016-10-24] MEDS: Acetaminophen TAB* 325 MG PO PRN ×2 (00:36→13:54)
[2016-10-24] MEDS: Heparin VIAL(*) 5000 UNITS/ML VIAL (FIVE THOUSAND) SUBCUT SCH ×3 (06:00→22:43)
[2016-10-24] MEDS: Baclofen TAB* 10 MG PO PRN ×3 (06:03→23:34)
[2016-10-24] MEDS: ALPRAZolam TAB* 0.5 MG PO SCH ×3 (06:09→18:12)
[2016-10-24 07:12] LABS: Hematocrit 40 % (35-47); Mean Corpuscular HGB Conc 32 g/dl (31-36); Mean Corpuscular Hemoglobin 27 pg (27-31); Mean Corpuscular Volume 84 fL (80-97); Mean Platelet Volume 10 um3 (7.4-10.4); Red Blood Count 4.78 10^6/ul (4.0-5.4); Red Cell Distribution Width 14 % (10.5-15); White Blood Count 13.2 10^3/ul (3.5-10.8)
[2016-10-24 08:27] LABS: BUN/Creatinine Ratio 10.4 (8-20); Calcium 8.7 mg/dL (8.6-10.3)
[2016-10-24 08:54] LABS: Potassium 4.6 mmol/L (3.5-5.0)
--- NOTE | 2016-10-24 09:48 | PN ---
Progress Note - Progress Note Note: Surgery Progress: S: POD #1. c/o pain (some relief from PIPE FOREMAN, but not adequate; she also normally takes oxycodone 15 mg TID, managed through the pain clinic- dosage confirmed). Didn't sleep last night because of alarming of the sat monitor r/t HR (40s). Sats ok. Ambulating. Hungry. No BM or flatus. O: Vital Signs - 8 hr 10/24/16 10/24/16 10/24/16 03:00 03:25 05:00 Temperature 97.3 F Pulse Rate 55 Respiratory 17 16 17 Rate Blood Pressure 95/50 (mmHg) O2 Sat by Pulse 100 100 100 Oximetry 10/24/16 10/24/16 10/24/16 06:09 07:00 07:15 Temperature Pulse Rate Respiratory 16 16 Rate Blood Pressure 90/52 (mmHg) O2 Sat by Pulse 100 Oximetry 10/24/16 10/24/16 07:21 07:34 Temperature 97.3 F Pulse Rate 52 Respiratory 16 14 Rate Blood Pressure 79/43 (mmHg) O2 Sat by Pulse 100 100 Oximetry Intake and Output Last 24 Hours 10/22/16 10/23/16 10/24/16 10/25/16 06:59 06:59 06:59 06:59 Intake Total 8083 Output Total 3550 Balance 4533 Weight 223 lb 6.4 oz Intake: IV Fluids 6863 260MG GENTAMYCIN 50 900MG CLINDAMYCIN 50 LR 6763 Oral 1220 Output: Reeder 3550 Other: Estimated Blood Loss 200 Comment Heart: reg (50s) Lungs: clear Abd: obese; small to moderate serosang drainage at ostomy site and inferior incision. Redressed w/ DSD (pkg was not changed); Abd binder reapplied. Labs: P3 nl Laboratory Tests 10/24/16 06:56 WBC 13.2 H Hgb 13.0 A: s/p colostomy reversal; inadequate pain control; lack of sleep 2/2 sat monitor P: will resume usual po oxycodone and increase PIPE FOREMAN to 0.3 mg; will have nursing reset sat monitor to lower HR; clears ad hannah; will d/w Dr. Rojas.
[2016-10-24] MEDS: HYDROmorphone PCA* 20 MG/20 ML PCA.SYRING PCA SCH ×2 (10:49→13:13)
[2016-10-24] MEDS: oxyCODONE TAB* 5 MG TAB PO PRN ×3 (10:50→22:43)
[2016-10-25] MEDS: oxyCODONE TAB* 5 MG TAB PO PRN ×3 (04:44→17:24)
[2016-10-25] MEDS: ALPRAZolam TAB* 0.5 MG PO SCH ×3 (06:02→17:24)
[2016-10-25] MEDS: Heparin VIAL(*) 5000 UNITS/ML VIAL (FIVE THOUSAND) SUBCUT SCH ×3 (06:05→22:43)
--- NOTE | 2016-10-25 08:45 | OP ---
DATE OF OPERATION: 10/23/16 - ROOM #331 DATE OF : 59 SURGEON: Kamron Rojas MD CLINICAL SERVICES PROFESSIONAL: Dr. Anderson ANESTHESIOLOGIST: Dr. Arellano PRE-OP DIAGNOSIS: Colostomy status; diverticulitis. POST-OP DIAGNOSIS: Colostomy status; diverticulitis. OPERATIVE PROCEDURE: Laparoscopic lysis of adhesions, laparotomy, lysis of adhesions, reversal of colostomy. ESTIMATED BLOOD LOSS: 200 mL. IV FLUIDS: Crystalloid. SPECIMENS: Colostomy. DRAINS: None. COMPLICATIONS: None. COUNTS: The instrument, needle, and sponge counts were correct. DESCRIPTION OF PROCEDURE: The patient was brought to the operating room and placed on the table supine. Sequential compression devices were placed on both lower extremities. General anaesthesia was administered. Reeder catheter was placed. The patient was positioned and padded appropriately. Appropriate antibiotics were administered. She was prepped and draped in the usual sterile fashion and time-out was performed. Local anaesthetic was infiltrated into the skin and soft tissue prior to making the laparoscopic incisions. Entry into the abdomen was through a right upper quadrant incision accommodating a 5 mm optical trocar. After accessing the peritoneal cavity, carbon dioxide was insufflated to a pressure of 15 mmHg. Laparoscope was introduced. There were noted to be numerous adhesions from omentum to the anterior abdominal wall. There was increased space in the right lower quadrant and a 5 mm trocar was placed there under direct visualization. LigaSure was used to free omentum from the lower midline and in this infraumbilical space, a 12 mm trocar was placed. Additional adhesiolysis was performed freeing the lower abdomen and left abdomen of adhesions of omentum to the inferior abdominal wall. In additions, there were loops of small bowel that were freed from the pelvis in order to identify the rectum. The left aspect of the rectal stump appeared adherent to the posterior aspect of the uterus and was densely adherent. There were numerous interloop adhesions of small bowel noted in the left lower quadrant as well and it was felt to be unsafe to proceed laparoscopically and therefore decision was made to perform laparotomy. Ports were removed and lower midline laparotomy was undertaken through the previous scar. Retractors were placed and extensive adhesiolysis was performed to free all the small bowel from the pelvis. Bookwalter retractor was used in retracting the viscera. The densely adherent portion of the rectal stump to the posterior aspect of the uterus was taken down using a scalpel. In order to take this down, the rectum was entered and subsequently completely freed from the uterus. The opening in the rectum was closed with interrupted 3-0 silks. At this point, the attention was turned to the colostomy, which was taken down by circumferentially dividing the mucocutaneous junction with the scalpel dividing the subcutaneous tissues with cautery and blunt dissection and then fully dissecting out the colostomy from the abdominal wall. The dissection also was performed from within the abdominal cavity and there were noted to be some loops of small bowel adherent up in this area which were taken down. The colostomy was completely freed and bowel was in good condition. The distal portion of the colostomy with mucocutaneous junction was divided from the bowel and submitted to pathology. The colon was then sized for the EEA stapler and a 31 mm EEA was selected. This was placed into the proximal lumen of the colon and pursestring of 2-0 Surgipro was used to secure it. After subsequent glove change and maintaining sterile technique, the colorectal anastomosis was performed. Prior to this; however, it was felt best to simply resect the previously repaired portion of rectal stump and therefore the proximal rectum was elevated, the posterior mesentery was divided with LigaSure and then a SAIRA 60 blue stapler was used to staple off the rectal stump and the proximal portion was divided and staple line was then inspected and noted to be intact and hemostatic. A double staple technique was used to perform the colorectal anastomosis with a 31 mm EEA stapler. Anastomosis was tested using bubble leak test and no leaks were identified. Hemostasis was assured. Lavage of the abdomen was performed until clear. The viscera was returned to the anatomic position. The omentum was placed beneath the abdominal incision which was run closed with #1 Polysorb. The colostomy site had been closed prior to this with 2 interrupted [id number] #1 Surgipro sutures from inside and a single [id number] #1 Surgipro from the outside. Midline skin incision was closed with talat as were the remaining laparoscopic port sites. The ostomy was pursestringed with a 3-0 Surgipro and tightened down intact with 0.5 inch plain gauze packing and dressing applied. The patient was awakened uneventfully, transferred to the recovery room in stable condition. [id number]/[facility] #: [id number] JUSTINA
--- NOTE | 2016-10-25 09:31 | PN ---
Progress Note - Progress Note SOAP: Subjective: C/o abd pain. No N/V on clears. No flatus. Objective: Vital Signs Temp 99.2 F 10/25/16 08:11 Pulse 85 10/25/16 08:11 Resp 15 10/25/16 08:11 BP 104/53 10/25/16 08:11 Pulse Ox 98 10/25/16 08:11 NAD abd: incis c/d/i, mild staple line erythema. LLQ wound open with SS drainage; packing changed. Tender throughout abdomen. Intake & Output 10/24/16 10/25/16 10/25/16 18:59 06:59 18:59 Intake Total 1562 3030 Output Total 1600 1550 Balance -38 1480 Intake: IV Fluids 1142 1770 LR 1142 1770 Oral 420 1260 Output: Reeder 1600 1550 Assessment: POD#2 s/p colostomy reversal, extensive AMI. Plan: Liquid diet until flatus. Cont DONKEY ENGINE FIRER/FIREMAN. Ambulate/pulm toilet.
[2016-10-25] MEDS: HYDROmorphone PCA* 20 MG/20 ML PCA.SYRING PCA SCH (12:32)
[2016-10-25] MEDS: Baclofen TAB* 10 MG PO PRN ×2 (13:45→22:43)
[2016-10-26] MEDS: oxyCODONE TAB* 5 MG TAB PO PRN ×4 (06:01→22:17)
[2016-10-26] MEDS: ALPRAZolam TAB* 0.5 MG PO SCH ×3 (06:01→18:09)
[2016-10-26] MEDS: Heparin VIAL(*) 5000 UNITS/ML VIAL (FIVE THOUSAND) SUBCUT SCH ×3 (06:01→22:18)
--- NOTE | 2016-10-26 08:55 | PN ---
Progress Note - Progress Note SOAP: Subjective: C/o abd pain. No flatus. No N/V. Objective: Vital Signs Temp 98.7 F 10/26/16 07:55 Pulse 71 10/26/16 07:55 Resp 14 10/26/16 07:55 BP 111/51 10/26/16 07:55 Pulse Ox 98 10/26/16 07:55 Intake & Output 10/25/16 10/26/16 10/26/16 18:59 06:59 18:59 Intake Total 1344 2005 Output Total 2650 2050 600 Balance -1306 -44 -600 Intake: IV Fluids 1104 1026 LR 1104 1026 Oral 240 980 Output: Urine 1550 2050 600 Reeder 1100 NAD Abd: obese, incis c/d/i, mild staple line erythema unchanged. LLQ wound with serous d/c. Tender throughout. Assessment: POD#3 s/p reversal colostomy. Plan: Full liquids. Shower and packing changes daily. PO meds. Wean HOT WIRE GLASS TUBE CUTTER as able. Amb.
[2016-10-26] MEDS: Baclofen TAB* 10 MG PO PRN ×2 (10:23→20:20)
[2016-10-26] MEDS: HYDROmorphone PCA* 20 MG/20 ML PCA.SYRING PCA SCH (18:14)
[2016-10-27] MEDS: oxyCODONE TAB* 5 MG TAB PO PRN ×3 (02:20→10:18)
--- NOTE | 2016-10-27 05:24 | PN ---
Progress Note - Progress Note Note: Reviewed EKG which showed sinus bradycardia @ 57 bpm with APCs and artifact.
[2016-10-27 05:31] LABS: Hematocrit 33 % (35-47); Hemoglobin 10.8 g/dl (12.0-16.0); Mean Corpuscular HGB Conc 33 g/dl (31-36); Mean Corpuscular Hemoglobin 27 pg (27-31); Mean Corpuscular Volume 84 fL (80-97); Mean Platelet Volume 9 um3 (7.4-10.4); Red Blood Count 3.94 10^6/ul (4.0-5.4); Red Cell Distribution Width 14 % (10.5-15); White Blood Count 7.8 10^3/ul (3.5-10.8)
[2016-10-27 05:45] LABS: BUN/Creatinine Ratio 4.1 (8-20); Calcium 8.4 mg/dL (8.6-10.3); EGFR African American 105.3 (>60); EGFR Non-African American 81.9 (>60); Magnesium 1.8 mg/dL (1.9-2.7); Potassium 3.4 mmol/L (3.5-5.0)
[2016-10-27] MEDS: ALPRAZolam TAB* 0.5 MG PO SCH (06:17)
[2016-10-27] MEDS: Heparin VIAL(*) 5000 UNITS/ML VIAL (FIVE THOUSAND) SUBCUT SCH (06:17)
[2016-10-27] MEDS ORDERED: KCL 20 MEQ/100 ML IVPREMIX* 20 MEQ/100 ML BAG IV SCH (07:00)
[2016-10-27] MEDS ORDERED: Magnesium Sulfate 2 GM IV IVPB ONE (07:00)
[2016-10-27 08:00] VITALS: BP 109/51
[2016-10-27] MEDS ORDERED: Potassium Chlor TAB* 10 MEQ TAB.ER PO ONE (08:06)
[2016-10-27] MEDS: Baclofen TAB* 10 MG PO PRN (10:22)
== END 2016-10-27 10:40 | disposition home or self-care (01) | DRG 223 ==
LOC: AA 09:32 → SSU 18:26
PROVIDERS: ADMIT Surgery; ATTEND Surgery
PROC: 0DN80ZZ Release Small Intestine, Open Approach (ICD-10-PCS; 2016-10-23)
PROC: 0DNS4ZZ (ICD-10-PCS; 2016-10-23)
PROC: 0DSN0ZZ Reposition Sigmoid Colon, Open Approach (ICD-10-PCS; principal; 2016-10-23 11:30)
DX: Z43.3 Encounter for attention to colostomy (principal); E66.01 Morbid (severe) obesity due to excess calories; R00.1 Bradycardia, unspecified; F32.9 Major depressive disorder, single episode, unspecified; G89.29 Other chronic pain; F41.9 Anxiety disorder, unspecified; J45.909 Unspecified asthma, uncomplicated; M48.06 Spinal stenosis, lumbar region; K66.0 Peritoneal adhesions (postprocedural) (postinfection); M54.5 Low back pain; Z68.39 Body mass index [BMI] 39.0-39.9, adult; Z88.1 Allergy status to other antibiotic agents; Z88.0 Allergy status to penicillin; Z88.6 Allergy status to analgesic agent; Z91.030 Bee allergy status; Z53.31 Laparoscopic surgical procedure converted to open procedure; F17.210 Nicotine dependence, cigarettes, uncomplicated
CPT/HCPCS: 36415; 80048; 83735; 85025; 88304; 93005; 94760; A9270-GY; J1100; J1170; J1580; J1644; J2250; J2270; J2405; J2704; J3010; J3480

== ENCOUNTER 2017-06-07 22:04 | Emergency (ER) | payer BC ==
[2017-06-07] MEDS ORDERED: NS 0.9% 1000 ML* 1,000 ML IV ONE (22:28)
--- NOTE | 2017-06-07 22:34 | ED ---
Lower Extremity - HPI Summary HPI Summary: Pt here w/ Rt ankle pain and deformity since fall on ice tonight - was walking around her house when she slipped and fell. BIBA and has received fentanyl IM- pt reports she's still in a lot of pain. Denies numbness, tingling, weakness. No other injuries to report - did not hit her head with the fall. Takes oxycodone 10mg 3 x day - was taking 15mg but reduced her dose over the past couple of months to 10mg per dose. She also has anxiety for which she takes xanax - has not taken any today. - History of Current Complaint Chief Complaint: EDExtremityLower Stated Complaint: RT ANKLE INJURY Time Seen by Provider: 06/07/17 22:08 Hx Obtained From: Patient Pain Intensity: 10 - Allergies/Home Medications Allergies/Adverse Reactions: Allergies Allergy/AdvReac Type Severity Reaction Status Date / Time Bee Venom Allergy Severe Unknown Verified 06/13/17 08:57 Reaction Details Ibuprofen Allergy Severe Nausea And Verified 06/13/17 08:57 Vomiting Latex Allergy Severe breakdown Verified 06/13/17 08:57 from skin Penicillins [PCN] Allergy Severe Hives Verified 06/13/17 08:57 Levofloxacin [From Levaquin] Allergy Intermediate Hives Verified 06/13/17 08:57 dairy/wheat intolerance Allergy Severe GI Upset Uncoded 06/13/17 08:57 seasonal Allergy Severe Eyes Uncoded 06/13/17 08:57 Itchy/Swollen/Red/Watery PMH/Surg Hx/FS Hx/Imm Hx Previously Healthy: Yes Endocrine/Hematology History: Denies: Hx Blood Disorders, Hx Diabetes, Hx Thyroid Disease, Hx Anemia Cardiovascular History: Denies: Hx Hypertension Respiratory History: Reports: Hx Asthma, Hx Pneumonia, Hx Seasonal Allergies Denies: Hx Chronic Obstructive Pulmonary Disease (COPD), Hx Sleep Apnea GI History: Reports: Other GI Disorders - diverticulosis, diverticulitis of large intestine with perforation Jun 2016 History: Reports: Other Problems/Disorders - stent place in R/ureter 2016 has been removed Denies: Hx Dialysis, Hx Renal Disease Musculoskeletal History: Reports: Hx Arthritis - rheumatoid and osteo, Hx Back Problems - Chronic back pain, stenosis, herniated disks, Hx Bursitis - shoulders bi-lat, resolved, Hx Osteoporosis Sensory History: Reports: Hx Contacts or Glasses Denies: Hx Cataracts, Hx Hearing Aid Opthamlomology History: Reports: Hx Contacts or Glasses Denies: Hx Cataracts Neurological History: Reports: Hx Spinal Cord Injury, Hx Transient Ischemic Attacks (TIA), Other Neuro Impairments/Disorders - PAIN CLINIC PT Psychiatric History: Reports: Hx Anxiety - controlled with medication xanax - Surgical History Surgery Procedure, Year, and Place: appendectomy approx 15 yrs ago. [place]dominal [place] [facility] [place] carpel tunnel bi-lat 1984 Hx Anesthesia Reactions: No Infectious Disease History: No Infectious Disease History: Denies: Traveled Outside the [place] in Last 30 Days - Family History Known Family History: Positive: Cardiac Disease, Hypertension Negative: Diabetes - Social History Occupation: Employed Full-time Lives: With Family Alcohol Use: Occasionally Alcohol Amount: 1-2 drinks, 1-2 x a month Hx Substance Use: No Substance Use Type: Reports: None Hx Tobacco Use: Yes Smoking Status (MU): Former Smoker Type: Cigarettes Amount Used/How Often: 7-8 cigarettes per day Have You Smoked in the Last Year: No Review of Systems Constitutional: Negative Negative: Vomiting, Nausea Positive: no symptoms reported Positive: Arthralgia, Myalgia, Decreased ROM, Edema Skin: Negative Negative: Weakness, Paresthesia, Numbness Positive: Anxious All Other Systems Reviewed And Are Negative: Yes Physical Exam Triage Information Reviewed: Yes Vital Signs On Initial Exam: Initial Vitals Temp Pulse Resp BP Pulse Ox 98.9 F 65 18 115/55 98 06/07/17 22:07 06/07/17 22:07 06/07/17 22:07 06/07/17 22:07 06/07/17 22:07 Vital Signs Reviewed: Yes Appearance: Positive: Well-Appearing, Pain Distress, Obese Skin: Positive: Warm, Dry - no open wound of skin about affected area Head/Face: Positive: Normal Head/Face Inspection Eyes: Positive: Normal, EOMI ENT: Positive: Hearing grossly normal Respiratory/Lung Sounds: Positive: Breath Sounds Present Cardiovascular: Positive: Pulses are Symmetrical in both Upper and Lower Extremities - DP pulse palpable and cap refill < 2 seconds Musculoskeletal: Positive: Strength/ROM Intact - can move Rt toes well - can move Rt knee - neither are TTP or deformed, Limited @ - Rt ankle, Pain @ - Rt ankle - grossly deformed - foot everted beyond natural ROM - no open wounds, no bones protruding through skin Neurological: Positive: Normal, Sensory/Motor Intact, Alert, Oriented to Person Place, Time, CN Intact II-III Psychiatric: Positive: Anxious Procedures - Splinting Location: Rt ankle Hand-Made Type: plaster Splint: posterior walking - + sugar tong Pre-Proc Neuro Vasc Exam: normal Post-Proc Neuro Vasc Exam: normal - Joint Reduction Joint Reduction Site: other - Rt ankle Specify Other Joint Reduced: Rt ankle Conscious Sedation: Yes - versed w/ fentanyl w/ limited effect - Supervised by Dr. Brothers Reduction Attempts: 1 Pre-Procedure NV Exam: Yes Post Joint Reduction Film: joint reduced Diagnostics - Vital Signs Vital Signs Temp Pulse Resp BP Pulse Ox 06/07/17 22:07 98.9 F 65 18 115/55 98 - Laboratory Diagnostic Studies Comment: Rt ankle XR: Closed, displaced trimalleolar fx; distal fibula w/ multiple fractures about the distal shaft; medial malleolus w/ distal tip of malleolus fractured and increased space laterally about the ankle mortise (talus displaced); ankle mortise w/o gross A/P displacement Lab Statement: Any lab studies that have been ordered have been reviewed, and results considered in the medical decision making process. Re-Evaluation - Re-Evaluation First Eval Change: Improved Lower Extremity Course/Dx - Diagnoses Provider Diagnoses: Closed displaced trimalleolar fracture of right ankle Discharge - Discharge Plan Condition: Stable Disposition: HOME Patient Education Materials: Ankle Fracture (ED), Crutch Instructions (ED), Splint Care (ED) Forms: *Work Release Referrals: Lei Sung MD [Medical Doctor] - Additional Instructions: Rest, ice, elevate Keep splint clean, dry and in place Take pain meds as directed Follow-up with orthopedics this week - Call Saturday for appointment *If you develop numbness, tingling, coolness of toes, loosen FLORENCIA wrap and elevate leg for 20 minutes - if still no change, return to ED
[2017-06-07] MEDS ORDERED: fentaNYL* 50 MCG/ML 2 ML VIAL (100 MCG VIAL) ONE (23:22)
[2017-06-07] MEDS ORDERED: Midazolam* 1 MG/ML 5 ML VIAL (5 MG) ONE (23:22)
[2017-06-07] MEDS ORDERED: fentaNYL* 50 MCG/ML 2 ML VIAL (100 MCG VIAL) IV SLOW PU ONE (23:23)
[2017-06-07] MEDS ORDERED: Midazolam* 1 MG/ML 5 ML VIAL (5 MG) SLOW PUSH ONE (23:23)
[2017-06-07] MEDS ORDERED: HYDROmorphone INJ* 2 MG/ML CARPUJECT SYRINGE IV SLOW PU ONE (23:49)
[2017-06-08] MEDS ORDERED: Ketorolac INJ* 30 MG/ML 1 ML VIAL IV PUSH ONE (01:26)
[2017-06-08] MEDS ORDERED: oxyCODONE TAB* 5 MG TAB PO ONE (01:27)
[2017-06-08 02:35] VITALS: BP 99/46
--- NOTE | 2017-06-08 08:09 | RAD ---
Indication: Traumatic ankle fracture 2 views of the right ankle demonstrate trimalleolar fracture with posterior, medial and lateral malleolus fractures. There is partial reduction of the lateral dislocation of the talus. IMPRESSION: Bimalleolar fracture with some reduction of the previously seen lateral dislocation of the talus.
--- NOTE | 2017-06-08 09:16 | RAD ---
Indication: Right ankle injury. 2 views of the right ankle demonstrates fracture of the medial malleolus, distal fibula and posterior malleolus with lateral dislocation of the talus. IMPRESSION: Trimalleolar fracture with lateral talar dislocation.
== END 2017-06-08 02:36 | disposition home or self-care (01) ==
LOC: ED 22:04
DX: S82.851A Displaced trimalleolar fracture of right lower leg, initial encounter for closed fracture (principal); W00.9XXA Unspecified fall due to ice and snow, initial encounter; Y93.9 Activity, unspecified; Y92.9 Unspecified place or not applicable; Y99.9 Unspecified external cause status; Z88.6 Allergy status to analgesic agent; Z88.3 Allergy status to other anti-infective agents; Z88.0 Allergy status to penicillin; Z87.891 Personal history of nicotine dependence
CPT/HCPCS: 96361; 96374; 96375; 96376; 99284; A9270-GY; J1170; J1885; J2250; J3010

== ENCOUNTER 2017-06-18 11:29 | Day surgery (SDC) | payer BC ==
--- NOTE | 2017-06-12 03:46 | HP ---
HISTORY AND PHYSICAL: DATE OF ADMISSION: 06/18/17 HISTORY OF PRESENT ILLNESS: Karyn is a 61-year-old female who slipped on ice 4 days ago. She broke her right ankle and was seen at [facility] and overnight reduction was performed, splinted. She is here for followup wound check and readjustment of splint. Karyn has had no previous issues with the ankle. She says it has been quite painful for her. She has been using crutches at home and has difficulty ambulating. She is basically in a flat, 1-story house, where gets up to 4 steps to enter. PAST MEDICAL HISTORY: During this past year, she has had diverticulitis and required colostomy, which was taken down as well within the same calendar year. She has a history of some arthritis, some AFib, and some anxiety. MEDICATIONS: Include: 1. Oxycodone. 2. Baclofen. 3. Xanax mg a day. 4. Multivitamin. ALLERGIES: She claims an allergy to PENICILLIN and LEVAQUIN. SOCIAL HISTORY: She does not smoke. 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 PHYSICAL EXAMINATION GENERAL: Karyn is heavy set at 220 pounds, she is 5 feet 4 inches. Normotensive, afebrile. She is in no acute distress. Appropriate mood and affect. Oropharynx is clear. NECK: Supple. CHEST: Clear to auscultation in all lung preciado. CARDIAC: Shows regular rate. No extra sounds noted. ABDOMEN: Large, soft, nontender. EXTREMITIES: Exam shows her to have intact skin right ankle with valgus deformity. There is no blistering or significant tenting of the skin. She has a warm sensate foot. DIAGNOSTIC STUDIES: The radiographs show trimalleolar ankle fracture displaced one- third bone diameter laterally. ASSESSMENT AND PLAN: With 1% lidocaine ankle block, we will reduce this. New x -rays were performed. She is to elevate, in splint, use cold compressive dressing, and an internal fixation will be scheduled through the office. [id number]/[facility] #: [id number] [facility]
[~2017-06-18 11:29] MED LIST changes: +Buffered Lidocaine 0.9% SYRIN* 5 ML/SYR SYRINGE INTRADERM ONE; -Buffered Lidocaine 1% SYR 3ML* 3 ML/SYR SYRINGE INTRADERM ONE; +Midazolam* 1 MG/ML 2 ML VIAL (2 MG) ONE; +fentaNYL* 50 MCG/ML 2 ML VIAL (100 MCG VIAL) ONE
[2017-06-18] MEDS ORDERED: Clindamycin 900 MG IVPREMIX(* 900 MG/50 ML SDV IV ONE (11:40)
[2017-06-18] MEDS ORDERED: Buffered Lidocaine 0.9% SYRIN* 5 ML/SYR SYRINGE ONE (11:40)
[2017-06-18] MEDS ORDERED: Bupivacaine 0.5% SDV PF* 10-30ML VIAL ONE ×2 (11:53→12:18)
[2017-06-18 13:06] LABS: Urine Appearance Cloudy; Urine Blood 2+ (Negative); Urine Color Straw; Urine Ketones Negative (Negative); Urine Protein Negative (Negative); Urine Specific Gravity 1.009 (1.010-1.030); Urine Urobilinogen Negative (Negative)
[2017-06-18] MEDS ORDERED: Lidocaine 2% PF * 5 ML VIAL ONE (13:54)
[2017-06-18] MEDS ORDERED: Ondansetron INJ* 2 MG/ML VIAL ONE (13:54)
[2017-06-18] MEDS ORDERED: Bupivacaine 0.25% SDV* 30 ML ONE (13:54)
[2017-06-18] MEDS ORDERED: Propofol* 10 MG/ML 20 ML BTL IV PUSH ONE (13:54)
[2017-06-18] MEDS ORDERED: Dexamethasone IV* 4 MG/ML 1 ML (4 MG) ONE (13:54)
[2017-06-18] MEDS ORDERED: fentaNYL* 50 MCG/ML 2 ML VIAL (100 MCG VIAL) ONE (14:21)
[2017-06-18] MEDS ORDERED: Acetaminophen TAB* 325 MG PO PRN (14:26)
[2017-06-18] MEDS ORDERED: HYDROmorphone INJ* 1 MG/ML CARPUJECT SYRINGE IV PRN (14:26)
[2017-06-18] MEDS ORDERED: oxyCODONE TAB* 5 MG TAB ONE (16:43)
[2017-06-18] MEDS ORDERED: Sulfamethox/Trimethoprim DS 800/160* TAB PO ONE (17:00)
[2017-06-18 17:07] VITALS: BP 131/60
--- NOTE | 2017-06-18 21:36 | RAD ---
INDICATION: RIGHT ankle fracture ORIF. COMPARISON: June 11, 2017 radiographs. TECHNIQUE: 8.7 seconds fluoroscopy fluoroscopy. FINDINGS: Single spot image documents internal fixation the lateral and medial malleolar fractures with gross anatomic alignment projection. IMPRESSION: Procedural fluoroscopy. CPT II Codes: 6045F
--- NOTE | 2017-06-19 02:25 | OP ---
DATE OF OPERATION: 06/18/17 - [facility] DATE OF : 59 ATTENDING SURGEON: Lei Sung MD HIDE AND SKIN COLERER: KARLO Figueroa PRE-OP DIAGNOSIS: Right trimalleolar ankle fracture. POST-OP DIAGNOSIS: Right trimalleolar ankle fracture. OPERATIVE PROCEDURE: Open reduction and internal fixation of right medial and lateral malleolus. DESCRIPTION OF PROCEDURE: The patient was taken to the operating room where lateral longitudinal incision was made over the distal fibula. The fragment was comminuted and extended proximally about 10 cm above the malleolus, so a long incision was made. The provisional reduction was made with some bone holding clamps and then pinned longitudinally with a 0.062 C-wire. We then precontoured a 3.5 mm small fragment recon plate. This was fixed to the posterolateral aspect of the fibula, spanning the butterfly fragment, which would be fixed later with a cerclage wire. A longitudinal medial incision was made over the medial malleolus where the rather large medial malleolar fragment was reduced with a small bone holding clamp and fixed with paired 4.0 cancellous screws and washers. We then took an x-ray of the mortise and noted that the fibula was reduced and slight valgus, so the plate was then removed and recontoured to push the lateral malleolus more medially, helping with the overall mortise reduction. We then refixed the fibular plate with 3.5 cortical screws and 22 gauge double band cerclage wire for the large butterfly fragment. X-rays were then repeated and showed satisfactory reduction of the mortise, both medial and lateral malleoli. Both wounds were then thoroughly irrigated and closed with 2-0 Vicryl and talat for the skin. The compression dressing and plaster splint was applied. [id number]/[facility] #: [id number] MTDD
== END 2017-06-18 17:15 | disposition home or self-care (01) ==
LOC: OR 11:29
PROVIDERS: ATTEND Orthopaedic Surgery
DX: S82.851A Displaced trimalleolar fracture of right lower leg, initial encounter for closed fracture (principal); W00.0XXA Fall on same level due to ice and snow, initial encounter; Y92.9 Unspecified place or not applicable; I48.91 Unspecified atrial fibrillation; F41.9 Anxiety disorder, unspecified; M19.90 Unspecified osteoarthritis, unspecified site; J45.909 Unspecified asthma, uncomplicated
CPT/HCPCS: 76000; 81003; 81015; 87086; A9270-GY; C1713; C1776; J1100; J2250; J2405; J2704; J3010

== ENCOUNTER → 2019-03-16 | Day surgery (SDC) | payer BC ==
[~2019-03-16] MED LIST changes: +Acetaminophen TAB* 325 MG ONE; +Acetaminophen TAB* 325 MG PO PRN; -Buffered Lidocaine 0.9% SYRIN* 5 ML/SYR SYRINGE INTRADERM ONE; +Buffered Lidocaine 1% SYRIN* 1 ML/SYRINGE INTRADERM ONE; +Bupivacaine 0.5%* 50 ML MDV VIAL ONE; +Clindamycin 900 MG/D5W BAG(*) 900 MG/50 ML BAG IVPB ONE; +Dexamethasone IV* 4 MG/ML 1 ML (4 MG) ONE; +DiMENhydriNATE IV* 50 MG/ML VIAL IV PUSH PRN; +DiMENhydriNATE IV* 50 MG/ML VIAL ONE; +Famotidine IV* 10 MG/ML 2 ML (20 mg) IV ONE; +Famotidine IV* 10 MG/ML 2 ML (20 mg) ONE; +HYDROmorphone INJ1* 1 MG/ML SYRINGE ONE; +Lactated Ringers 1000 ML Bag* 1,000 ML IV SCH; +Lidocaine 2% PF * 5 ML VIAL ONE; +Lidocaine 2% PF* 10 ML AMP ONE; +Midazolam* 1 MG/ML 5 ML VIAL (5 MG) ONE; +Naloxone* 0.4 MG/ML 1 ML VIAL IV PRN; +Ondansetron INJ* 2 MG/ML VIAL ONE; +Propofol* 10 MG/ML 20 ML BTL ONE; +hydrALAZINE IV* 20 MG/ML VIAL ONE; +oxyCODONE TAB* 5 MG TAB ONE; +oxyCODONE TAB* 5 MG TAB PO PRN
[2019-03-16] MEDS: Midazolam* 1 MG/ML 2 ML VIAL (2 MG) IV SLOW PU ONE ×2 (11:50→12:13)
[2019-03-16 16:45] VITALS: BP 113/56
--- NOTE | 2019-03-16 22:28 | OP ---
DATE OF OPERATION: 03/16/19 - [facility] DATE OF : 59 ATTENDING SURGEON: Lei Sung MD. ASSISTED BY: Armond Manriquez PA-C. PRE-OP DIAGNOSIS: Painful hardware, right bimalleolar ankle fracture. POST-OP DIAGNOSIS: Painful hardware, right bimalleolar ankle fracture. OPERATIVE PROCEDURE: Removal of hardware, right ankle. DESCRIPTION OF PROCEDURE: The patient was taken to the operating room where a thigh tourniquet was applied. We made a 3-cm longitudinal incision at the medial malleolus and without difficulty identified the head of the 3.5 mm cancellous screws. Each removed with a small fragment screw high lift driver as well as the washer. We the irrigated this wound closing the subcu with 2-0 Monocryl and interrupted nylon sutures for the skin. Laterally, we made a 12-cm longitudinal incision over the fibular plate. We bluntly dissected down to the plate and used electrocautery to expose the screw holes. Each of the lateral 2- mm screws were then removed using small fragment screw high lift driver and the large cerclage wire was removed using bone pliers and blunt dissection. The plate was then elevated off the lateral fibula, irrigating thoroughly. We closed the subcu with 2-0 Monocryl and talat for the skin and a compression dressing applied. [id number]/[facility] #: [id number] MTDGabriele
== END | disposition home or self-care (01) ==
LOC: OR 07:40
PROVIDERS: ATTEND Orthopaedic Surgery
DX: T84.84XA Pain due to internal orthopedic prosthetic devices, implants and grafts, initial encounter (principal); Y83.1 Surgical operation with implant of artificial internal device as the cause of abnormal reaction of the patient, or of later complication, without mention of misadventure at the time of the procedure; S82.851S Displaced trimalleolar fracture of right lower leg, sequela; X58.XXXS Exposure to other specified factors, sequela; Z88.0 Allergy status to penicillin; Z87.891 Personal history of nicotine dependence; F41.9 Anxiety disorder, unspecified; N18.9 Chronic kidney disease, unspecified; Y92.9 Unspecified place or not applicable
CPT/HCPCS: 88300; A9270-GY; J0360; J1100; J1170; J1240; J2001; J2250; J2405; J2704; J3010; J3490